=== PATIENT | male | born 1945 | race Caucasian/White ===

== ENCOUNTER 2024-10-02 08:15 | Emergency (ER) | payer MEDICARE, SELFPAY ==
[2024-10-02 08:17] VITALS: BP 185/74; PULSE 63; RESP 16; TEMP 36.8; O2SAT 96; BMI 24.5
--- NOTE | 2024-10-02 08:35 | EKG12_ITS ---
Test Reason : GENERAL Blood Pressure : */* mmHG Vent. Rate : 61 BPM Atrial Rate : 91 BPM P-R Int : 194 ms QRS Dur : 86 ms QT Int : 412 ms P-R-T Axes : 69 46 95 degrees QTcB Int : 414 ms Sinus rhythm Premature atrial complexes Nonspecific T wave abnormality Abnormal ECG Confirmed by Michel Carroll [id number]), editorial writer SCOTT EDWARDS ([id number]) on 10/04/2024 6:59:37 AM Referred By: Confirmed By: Michel Carroll
[2024-10-02] MEDS: 0.9% Normal Saline (1000mL) 1,000 ML 999 ML IV (08:48)
[2024-10-02] MEDS: Ondansetron 4 MG/2 ML Vial IV (08:48)
[2024-10-02] MEDS: Morphine 4 MG/ML Syringe IV (08:48)
[2024-10-02 08:59] LABS: Bacteria 0 SEEN /hpf (None Seen); Mucous, Urine 0 SEEN /hpf (<or=2+); White Blood Cells 0 SEEN /hpf (0-5)
--- NOTE | 2024-10-02 08:59 | EX.ED.DYSGE1 ---
HPI History of Present Illness Chief Complaint: Flank Pain Narrative Narrative: Patient is a 78-year-old male with past medical history of hypertension, hyperlipidemia, CAD status post CABG 4 years ago who presents to the emergency department chief complaint of acute right sided back pain. He states that around 430 this morning he woke up and had this pain he rates his pain a 8 out of 10. He states that nothing like this has happened before no history of kidney stones. Patient states that before going to bed last night he felt fine. He states he does feel nauseous but has not vomited. PFSH PFS Medical History Hypertension Hyperlipidemia 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 Home Medications ?Medication ?Instructions ?Recorded ?Last Taken ?Type ketorolac 10 mg tablet 10 mg PO Q8H PRN pain #10 tabs 10/02/24 Unknown Rx ondansetron 4 mg disintegrating 4 mg PO Q6H PRN nausea and 10/02/24 Unknown Rx tablet vomiting #20 tabs oxycodone-acetaminophen 5 mg-325 1 tab PO Q6H PRN pain 3 days #12 10/02/24 Unknown Rx mg tablet (Endocet) tabs tamsulosin 0.4 mg capsule (Flomax) 0.4 mg PO DAILY #14 caps 10/02/24 Unknown Rx Allergy/AdvReac Type Severity Reaction Status Date / Time No Known Allergies Allergy Verified 10/02/24 08:20 Social History Smoking Status: Never smoker ROS ROS ED ROS Narrative Constitutional: Denies fevers or chills, headaches Eyes: Denies changes double vision blurry vision Cardiovascular: Denies chest pain or palpitations Respiratory: Denies coughing wheezing shortness of breath Abdomen: Does state that he has some right side abdominal discomfort and nausea denies vomiting or diarrhea : Complains of increased frequency of urinating denies any painful urination or hematuria Neurological: Denies numbness, weakness, tingling Musculoskeletal: Complains of flank pain as noted above Skin: Denies rashes or lesions EXAM Physical Exam Narrative Exam Narrative: General: Patient was lying in bed rest comfortably did not appear to be acute distress Head: Atraumatic, normocephalic Eyes: PERRL bilateral, EOMI bilateral, no conjunctival injection noted Neck: Soft, supple, trachea midline Cardiovascular: Regular rate and rhythm no murmurs gallops rubs noted Respiratory: Clear to auscultation bilaterally no rales rhonchi or wheezes noted Abdomen: Soft, nondistended, mild tenderness to palpation in the right lower quadrant no rebound or guarding on exam Extremities: +5/5 strength noted in the bilateral upper and lower extremities, radial pulses +2/4 in the bilateral extremities, no pedal edema on exam Neurological: Patient following commands knew that he was at [facility] year is 2024 Skin: Warm, dry, intact no rashes or lesions noted Const Vital Signs: 10/02/24 08:17 10/02/24 10:16 Temperature 98.2 F Temperature Source Oral Pulse Rate 63 66 Respiratory Rate 16 18 Blood Pressure 185/74 H 157/68 H Blood Pressure Mean 111 97 Pulse Ox 96 96 Oxygen Delivery Method Room Air Room Air MDM MDM MDM Narrative Medical decision making narrative: Patient is a 78-year-old male who presented to the emergency department the chief complaint of right-sided flank pain that started suddenly 4:30 AM this morning. On the differential diagnose includes but not limited to AAA, ACS, UTI, pyelonephritis, urolithiasis. Once workup is obtained reviewed he will be reevaluated. Patient be given morphine Zofran and fluids. Patient CBC reviewed showed no evidence leukocytosis white blood count normal 7.6, hemoglobin 12.8, plate count noted to be normal at 234. Patient odium normal at 141, potassium normal at 4.2, creatinine was 1.30 we do not have a previous creatinine to compare to I suspect that he has underlying chronic kidney disease however cannot confirm this, AST and ALT were 17 and 16 respectively, lipase normal 25. Patient's urinalysis showed 25 occult blood negative nitrates negative leukocyte esterase no white cells and no bacteria noted. Patient CT abdomen pelvis with IV contrast was reviewed showed mild hydronephrosis with a proximal obstructive calculus and. Nephric fat stranding this measures 4 mm in nature. Patient has bilateral renal cyst measuring up to 2.2 cm, moderate right inguinal hernia containing fat and anterior bladder. Hepatic steatosis with cholelithiasis noted. Diffuse colonic diverticula with no evidence of diverticulitis with mild prostamegaly. I went back into the room and reexamined the patient the patient has no testicular pain no pain with exam on inguinal canal in the right Scrotal region. No tenderness to palpation over the epididymis, no concern for Brice's gangrene or testicular torsion. Patient does have a bulging when asked he states that this has been there since April after a heart catheterization at [facility]. He states that he is urinating normally for himself without any difficulty. I discussed case with on-call surgeon Dr. Vides and states that he can follow-up with him in the outpatient setting as this was an incidental finding. Patient is feeling better after the second dose of pain medication and Toradol with the Reglan. Patient will be discharged home in stable condition with follow-up given for Dr. Vides as well as urology Dr. Null. Patient be given prescriptions for Flomax, Toradol, Zofran, Percocet for severe pain. He was encouraged to return with worsening symptoms or any concerns. He is agreeable this plan all question concerns answered he is discharged home in stable condition. Lab Data Labs: Laboratory Results - last 24 hr 10/02/24 10/02/24 07:45 08:43 WBC 7.6 RBC 4.18 L Hgb 12.8 L Hct 39.4 L MCV 94.3 H MCH 30.6 MCHC 32.5 RDW Std Deviation 44.5 H RDW Coeff of Adeline 12.8 Plt Count 234 MPV 11.2 Immature Gran % (Auto) 0.400 Neut % (Auto) 74.2 H Lymph % (Auto) 15.8 L [place] % (Auto) 7.8 Eos % (Auto) 1.3 Baso % (Auto) 0.5 Absolute Neuts (auto) 5.6 Absolute Lymphs (auto) 1.20 Nucleated RBC % 0 Sodium 141 Potassium 4.2 Chloride Direct 104 Carbon Dioxide 26.5 Anion Gap 11 BUN 25 H Creatinine 1.30 H Estim Creat Clear Calc 45.32 Est GFR (MDRD) Non-Af 56 L BUN/Creatinine Ratio 19.0 Glucose 203 H Calcium 9.2 Total Bilirubin 0.65 AST 17 ALT 16 Alkaline Phosphatase 86 Total Protein 6.4 Albumin 4.2 Globulin 2.2 Albumin/Globulin Ratio 1.9 Lipase 25 Urine Color Yellow Urine Clarity Clear Urine pH 6.5 Ur Specific [place] 1.015 Urine Protein 30 H Urine Glucose (UA) 250 H Urine Ketones 15 H Urine Occult Blood 25 H Urine Nitrite Negative Urine Bilirubin Negative Urine Urobilinogen Normal Ur Leukocyte Esterase Negative Urine RBC 0-5 SEEN Urine WBC 0 SEEN Ur Squamous Epith Cells 0-5 SEEN Urine Bacteria 0 SEEN Urine Mucus 0 SEEN Radiography Diagnostic Testing: Clinical Impression(s) from Imaging Studies Abdomen/Pelvis CT 10/02/24 09:06 IMPRESSION: 1. Mild hydronephrosis with proximal obstructive calculus and perinephric fat stranding. 2. Moderate right inguinal hernia containing fat and anterior bladder 3. Hepatic steatosis 4. Cholelithiasis 5. Diffuse colonic diverticula with no evidence of diverticulitis 6. Mild prostatomegaly One or more dose reduction techniques were used (e.g., Automated exposure control, adjustment of the mA and/or kV according to patient size, use of iterative reconstruction technique). Reading Location: [facility] Discharge Plan Triage Chief Complaint: Flank Pain ED Provider: Lloyd Dimas Dx/Rx/DC Orders Clinical Impression: Urolithiasis, Right inguinal hernia Prescriptions: New ketorolac 10 mg tablet 10 mg PO Q8H PRN (Reason: pain) Qty: 10 0RF Rx Instructions: maximum total duration of 5 days from all oral, intranasal, or parenteral formulations ondansetron 4 mg tablet,disintegrating 4 mg PO Q6H PRN (Reason: nausea and vomiting) Qty: 20 0RF tamsulosin [Flomax] 0.4 mg capsule 0.4 mg PO DAILY Qty: 14 0RF oxycodone-acetaminophen [Endocet] 5-325 mg tablet 1 tab PO Q6H PRN (Reason: pain) 3 Days Qty: 12 0RF Primary Care Provider: Emily Campbell Referrals: Akira Riggs MD [Non-Staff] - Bossman Vides MD [Med Staff - Active Staff] - Judah Null MD [Med Staff - Active Staff] - Activity Restrictions/Additional Instructions: Take prescriptions as prescribed. Do not operate anything under the influence of the Endocet. Use the Endocet and Zofran for severe pain. You can use the Toradol for mild to moderate pain do not take any other NSAIDs on this medication including ibuprofen Advil Aleve etc. Follow-up with the surgeons that you were referred to. Return with worsening symptoms or other concerns. You have a kidney stone and there was an incidental finding that you have a hernia in the right side near your groin with your bladder partially and this. If you are having difficulty urinating you need to return to the emergency department as well. Print Language: Angolan Disposition Disposition: Home, Self Care
--- NOTE | 2024-10-02 09:06 | CT_ITS ---
PROCEDURE: ABDOMEN/PELVIS W IV CONT ONLY REASON FOR EXAM: Flank pain TECHNIQUE: Abdomen and pelvis CT with intravenous contrast. COMPARISON: None. FINDINGS: Lung bases: Clear Liver: Diffuse fatty infiltration. Gallbladder: Several calcified gallstones. Spleen: Unremarkable. Pancreas: Unremarkable. Adrenals: Unremarkable. Kidneys: Mild right hydronephrosis with 4 mm obstructive proximal ureteral calculus. Perinephric fat stranding. Bilateral renal cysts measuring up to 2.2 cm. Bladder: Unremarkable. Reproductive Organs: Prostate measures 4.0 cm in transverse dimension.. Bowel: Colonic diverticulosis without diverticulitis. Appendix: Normal. Lymph nodes: No suspicious lymph node enlargement. Vasculature: Mild diffuse atherosclerotic calcifications are noted. Peritoneum / Retroperitoneum: No ascites. No free air. Bones: Degenerative changes of the spine. Moderate right inguinal hernia containing fat and anterior bladder CT/Abdomen/Pelvis W IV Cont ONLY IMPRESSION: 1. Mild hydronephrosis with proximal obstructive calculus and perinephric fat stranding. 2. Moderate right inguinal hernia containing fat and anterior bladder 3. Hepatic steatosis 4. Cholelithiasis 5. Diffuse colonic diverticula with no evidence of diverticulitis 6. Mild prostatomegaly One or more dose reduction techniques were used (e.g., Automated exposure contr ol, adjustment of the mA and/or kV according to patient size, use of iterative reconstruction technique). Reading Location: [facility]
[2024-10-02 09:16] LABS: Absolute Neutrophil Count 5.6 X10^3/uL (2.0-7.7); Basophil# 0.04 X10^3/uL; Basophil% 0.5 % (0-1); Eosinophils% 1.3 % (0-5); Hematocrit 39.4 % (40-54); Hemoglobin 12.8 g/dL (13.0-16.5); Lymphocyte % 15.8 % (19-41); Mean Corp Hgb Conc 32.5 g/dL (32-36); Mean Corpuscular Hgb 30.6 pg (27.0-32.0); Mean Corpuscular Volume 94.3 fL (80-94); Mean Platelet Vol. 11.2 fl (6.2-12.0); Monocyte# 0.59 X10^3/uL; Monocyte% 7.8 % (0-10); NRBC Flagged by Analyzer 0 % (0-5); Neutrophil # 5.62 X10^3/uL (2.7-7.7); Neutrophil % 74.2 % (47-70); Platelet Count 234 K/mm3 (150-450); RBC Distribution Width CV 12.8 % (11.6-14.6); RBC Distribution Width SD 44.5 fl (35.1-43.9); Red Blood Count 4.18 M/mm3 (4.6-6.2); White Blood Count 7.6 K/mm3 (4.4-11.0)
[2024-10-02 09:20] LABS: ALB/GLOB Ratio 1.9 RATIO (0.9-2.4); AST(SGOT) 17 U/L (<=37); Alanine Aminotransfer ALT/SGPT 16 U/L (<=46); Albumin, Serum 4.2 g/dL (3.4-4.8); Alkaline Phosphatase 86 U/L (40-129); Anion Gap 11 (5-15); BUN 25 mg/dL (4-19); Calcium 9.2 mg/dL (7.6-11.0); Carbon Dioxide 26.5 mmol/L (22.0-29.0); Chloride 104 mmol/L (96-108); EST Glomerular Filtration Rate 56 (>60); Estimated Creatinine Clearance 45.32 ml/min; Globulin 2.2 g/dL (2.2-4.2); Glucose 203 mg/dL (70-99); Lipase 25 U/L (13-75); Potassium 4.2 mmol/L (3.3-5.1); Protein, Total 6.4 g/dL (5.9-8.4); Sodium Level 141 mmol/L (133-145); Total Bilirubin 0.65 mg/dL (0.00-1.30)
[2024-10-02 09:23] LABS: Color, Urine Yellow (Yellow); Glucose, Dipstick 250 mg/dl (Normal); Ketone-Dipstick 15 mg/dl (Negative); Leukocyte Esterase-Dipstick Negative /ul (Negative); Nitrite-Dipstick Negative (Negative); Occult Blood-Urine 25 /ul (Negative); Protein-Dipstick 30 mg/dl (Negative); Specific Gravity, Urine 1.015 (1.002-1.030); Urine Bilirubin Dipstick Negative (Negative); Urine Clarity Clear (Clear); Urine Urobilinogen Normal (Normal); Urine pH 6.5 (5.0 - 8.0)
[2024-10-02 09:31] LABS: Red Blood Cells-Urine 0-5 SEEN /hpf (0-5); Squamous Epithelial Cells - UA 0-5 SEEN /hpf (0-5)
[2024-10-02] MEDS: Metoclopramide 10 MG/2 ML Vial 5 MG IV (09:38)
[2024-10-02] MEDS: Ketorolac 15 MG/ML Vial IV (09:38)
[2024-10-02 10:16] VITALS: BP 157/68; PULSE 66; RESP 18; O2SAT 96
[2024-10-02 11:02] VITALS: BP 158/78; PULSE 74; RESP 18; TEMP 36.7; O2SAT 97
== END 2024-10-02 11:52 | disposition home or self-care (01) ==
PROVIDERS: Emergency Provider Emergency Medicine; PCP Nurse Practitioner Family; Visit Provider Emergency Medicine
DX: N13.2 Hydronephrosis with renal and ureteral calculous obstruction (principal); K40.90 Unilateral inguinal hernia, without obstruction or gangrene, not specified as recurrent; K57.30 Diverticulosis of large intestine without perforation or abscess without bleeding; I25.10 Atherosclerotic heart disease of native coronary artery without angina pectoris; K80.20 Calculus of gallbladder without cholecystitis without obstruction; I10 Essential (primary) hypertension; E78.5 Hyperlipidemia, unspecified; Z95.1 Presence of aortocoronary bypass graft; N28.1 Cyst of kidney, acquired
CPT/HCPCS: 96361; 96374; 96375; 99285; 74177; 80053; 81001; 83690; 85025; 93005; Q9967; J2405

== ENCOUNTER 2024-10-05 12:22 | Inpatient (IN) | payer MEDICARE, SELFPAY ==
[2024-10-05] VITALS (17 sets, daily range): BP systolic 147–186; BP diastolic 55–86; PULSE 61–89; RESP 15–20; TEMP 36.6–38.9; O2SAT 89–100; BMI 23.9
--- NOTE | 2024-10-05 13:11 | EKG12_ITS ---
Test Reason : ALT LOC Blood Pressure : */* mmHG Vent. Rate : 87 BPM Atrial Rate : 87 BPM P-R Int : 184 ms QRS Dur : 84 ms QT Int : 326 ms P-R-T Axes : 45 43 95 degrees QTcB Int : 392 ms Poor data quality, interpretation may be adversely affected Normal sinus rhythm Nonspecific ST and T wave abnormality Abnormal ECG Confirmed by Michel Carroll ([id number]), assistant film editor CYN YOUNG ([id number]) on 10/07/2024 6:51:15 AM Referred By: Confirmed By: Michel Carroll
--- NOTE | 2024-10-05 13:14 | CT_ITS ---
PROCEDURE: ABDOMEN/PELVIS WITHOUT CONT REASON FOR EXAM: Kidney stone TECHNIQUE: Abdomen and pelvis CT without intravenous contrast. COMPARISON: 10/02/2024 FINDINGS: Lung bases: Clear Liver: Diffuse fatty infiltration. Gallbladder: Several calcified gallstones. Spleen: Normal size. Pancreas: Unremarkable. Adrenals: Unremarkable. Kidneys: Moderate right hydronephrosis with proximal obstructive 4 mm calculus 2 mm nonobstructive calculus in the right kidney... Bladder: Decompressed about a Oden catheter Reproductive Organs: Prostate measures 4.2 cm in transverse dimension. Bowel: Colonic diverticulosis without diverticulitis. Appendix: Normal. Lymph nodes: No suspicious lymph node enlargement. Vasculature: Mild diffuse atherosclerotic calcifications are noted. Peritoneum / Retroperitoneum: No ascites. No free air. Bones: Degenerative changes of the spine. Hernia: Large right fat and bladder containing inguinal hernia CT/Abdomen/Pelvis without Cont IMPRESSION: 1. Moderate hydronephrosis and proximal obstructive calculus, no interval walsh ge from prior study 2. Large right fat and bladder containing inguinal hernia 3. Hepatic steatosis 4. Prostatomegaly 5. Diverticulosis of the colon with no evidence of diverticulitis One or more dose reduction techniques were used (e.g., Automated exposure contr ol, adjustment of the mA and/or kV according to patient size, use of iterative reconstruction technique). Reading Location: [facility]
--- NOTE | 2024-10-05 13:14 | CT_ITS ---
PROCEDURE: CTA HEAD AND NECK W/ CONTRAST REASON FOR EXAM: AMS TECHNIQUE: CTA imaging of the head and neck from the aortic arch to the skull vertex with intravenous contrast. 3D reconstructions. COMPARISON: None. # of known CTs in the past 12 months: 0 # of known Cardiac Nuclear Medicine Studies in the past 12 months: 0 FINDINGS: Aortic Arch: Normal size and branching pattern. No significant atherosclerotic plaque. Brachiocephalic and Subclavians: Unremarkable RIGHT Carotid: Right CCA: Mild calcified and soft plaque. Right ICA: Mild calcified and soft plaque. Maximum stenosis (NASCET): 0-49 % Right ECA: Unremarkable. LEFT Carotid: Left CCA: Mild calcified and soft plaque. Left ICA: Unremarkable. Maximum stenosis (NASCET): 0-49 % Left ECA: Unremarkable. Vertebrals: Codominant. Arise from the subclavians. Both vertebrals form the basilar. RIGHT Vertebral: Unremarkable. LEFT Vertebral: Unremarkable. No intracranial aneurysms or large vascular malformations are identified. Anterior cerebral arteries: Unremarkable. Middle cerebral arteries: Unremarkable. Basilar artery: Unremarkable. Posterior cerebral arteries: Unremarkable. Other major branches of the posterior circulation: Unremarkable. Major venous structures: Unremarkable. Other findings: No lymphadenopathy. Lung apices are clear. Bones are unremarkable. CT/CTA Head AND Neck W/ Contrast IMPRESSION: Mild atherosclerotic changes with no hemodynamically significant stenosis in th e arteries and head and neck. One or more dose reduction techniques were used (e.g., Automated exposure contr ol, adjustment of the mA and/or kV according to patient size, use of iterative reconstruction technique). Reading Location: [facility]
[2024-10-05] MEDS: Ondansetron 4 MG/2 ML Vial IV (13:20)
[2024-10-05] MEDS: 0.9% Normal Saline (1000mL) 1,000 ML 999 ML IV ×2 (13:21→15:30)
[2024-10-05 13:37] LABS: Absolute Lymphocyte Count 0.49 X10^3/uL (0.83-4.51); Absolute Neutrophil Count 6.4 X10^3/uL (2.0-7.7); Basophil# 0.03 X10^3/uL; Basophil% 0.4 % (0-1); Eosinophil# 0.01 X10^3/uL; Eosinophils% 0.1 % (0-5); Hematocrit 35.8 % (40-54); Hemoglobin 11.7 g/dL (13.0-16.5); Lymphocyte # 0.49 X10^3/ul (0.83-4.51); Lymphocyte % 6.5 % (19-41); Mean Corp Hgb Conc 32.7 g/dL (32-36); Mean Corpuscular Hgb 30.7 pg (27.0-32.0); Mean Platelet Vol. 10.9 fl (6.2-12.0); Monocyte# 0.52 X10^3/uL; Monocyte% 6.9 % (0-10); NRBC Flagged by Analyzer 0 % (0-5); Neutrophil # 6.42 X10^3/uL (2.7-7.7); Neutrophil % 85.8 % (47-70); POSITIVE DIFFERENTIAL YES; Platelet Count 170 K/mm3 (150-450); RBC Distribution Width CV 12.8 % (11.6-14.6); RBC Distribution Width SD 44.2 fl (35.1-43.9); Red Blood Count 3.81 M/mm3 (4.6-6.2); White Blood Count 7.5 K/mm3 (4.4-11.0)
[2024-10-05 13:40] LABS: Mucous, Urine 0 SEEN /hpf (<or=2+)
[2024-10-05 13:42] LABS: Lactic Acid 2.1 mmol/L (0.0-2.0)
[2024-10-05 13:45] LABS: Color, Urine Straw (Yellow); Glucose, Dipstick 1000 mg/dl (Normal); Ketone-Dipstick 15 mg/dl (Negative); Leukocyte Esterase-Dipstick 25 /ul (Negative); Nitrite-Dipstick Negative (Negative); Occult Blood-Urine 150 /ul (Negative); Protein-Dipstick 100 mg/dl (Negative); Specific Gravity, Urine 1.015 (1.002-1.030); Urine Bilirubin Dipstick Negative (Negative); Urine Clarity Clear (Clear); Urine Urobilinogen Normal (Normal)
[2024-10-05 14:07] LABS: Bacteria RARE /hpf (None Seen); Red Blood Cells-Urine 5-10 SEEN /hpf (0-5); Squamous Epithelial Cells - UA 0-5 SEEN /hpf (0-5); White Blood Cells 0-5 SEEN /hpf (0-5)
[2024-10-05 14:08] LABS: International Normalized Ratio 1.1; Prothrombin Time (Protime)PT. 14.4 SECONDS (11.7-14.9); Troponin T High Sensitivity 41 ng/L (<=22)
--- NOTE | 2024-10-05 14:11 | EX.ED.DYSGE1 ---
HPI History of Present Illness Chief Complaint: LOC Informant: EMS Narrative Narrative: This is an 78-year-old male presenting to the emergency room with altered mental status. Patient was reportedly seen in the emergency department was diagnosed with a proximal ureteral stone. Apparently friends were over at his and he seemed fine. He did. He was confused and unable to stand so they carried him to the fire department. Patient noted to be vomiting by nursing when he got here. Patient himself cannot provide any history. He reportedly lives at home alone. Nursing does not see any outward signs of trauma. PFSH PFS Medical History Hypertension Hyperlipidemia 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 Home Medications ?Medication ?Instructions ?Recorded ?Last Taken ?Type ketorolac 10 mg tablet 10 mg PO Q8H PRN pain #10 tabs 10/02/24 Unknown Rx ondansetron 4 mg disintegrating 4 mg PO Q6H PRN nausea and 10/02/24 Unknown Rx tablet vomiting #20 tabs oxycodone-acetaminophen 5 mg-325 1 tab PO Q6H PRN pain 3 days #12 10/02/24 Unknown Rx mg tablet (Endocet) tabs tamsulosin 0.4 mg capsule (Flomax) 0.4 mg PO DAILY #14 caps 10/02/24 Unknown Rx Allergy/AdvReac Type Severity Reaction Status Date / Time No Known Allergies Allergy Verified 10/02/24 08:20 Social History Smoking Status: Never smoker ROS ROS ED Review of Systems ROS Unobtainable: due to mental status EXAM Physical Exam Const Vital Signs: 10/05/24 12:30 10/05/24 13:10 10/05/24 13:34 Temperature 97.9 F 98.5 F 97.8 F Temperature Source Oral Oral Temporal Pulse Rate 85 76 85 Respiratory Rate 18 16 15 Blood Pressure 152/80 H 171/86 H 171/76 H Blood Pressure Mean 104 114 107 Pulse Ox 96 96 93 Oxygen Delivery Method Room Air Room Air Room Air 10/05/24 14:00 10/05/24 14:36 10/05/24 15:00 Temperature 97.9 F 100.3 F H 101.5 F H Temperature Source Temporal Axillary Axillary Pulse Rate 81 89 87 Respiratory Rate 16 17 18 Blood Pressure 179/69 H 182/83 H 186/77 H Blood Pressure Mean 105 116 113 Pulse Ox 92 92 96 Oxygen Delivery Method Room Air Room Air Room Air Positive well nourished and well developed General Appearance ED: well developed and NAD HEENT Reports normocephalic, head/scalp atraumatic and moist mucous membranes HEENT Narrative: Patient appears to be handling secretions normally. Eyes PERRL and EOMs intact bilaterally Neck no lymphadenopathy, supple and no JVD Resp normal respiratory effort and clear to auscultation bilaterally Cardio regular rate, regular rhythm and no murmurs GI normal to inspection, nondistended, normoactive bowel sounds and non-tender Palpation: soft Back/Spine no CVA tenderness and normal ROM Extremity normal to inspection General Extremety ED: Negative for edema General Extremity: Negative for edema Neuro Neuro Narrative: Patient is alert but confused. He opens his eyes with movement and voice. He appears to be moving all extremities. Nonverbal. Psych Psych Narrative: Unable to assess Skin no rashes or lesions noted and no wounds MDM MDM MDM Narrative Medical decision making narrative: Differential diagnosis includes stroke (hemorrhagic ischemic) sepsis UTI pneumonia viral syndrome uremia liver failure renal failure dehydration medication electrolyte abnormalities anemia Patient's white count 7.5 hemoglobin 11.7 platelet count of 170. Lactic acid slightly elevated 2.1. Normal LFTs. Troponin is 41. Creatinine 2.30 which is elevated off of baseline anion gap 16 CO2 22.1 normal coags. Urinalysis was a cath specimen demonstrated rare bacteria 0-5 white cells 2-5 squamous cells 5-10 red blood cells. Negative nitrates. This was sent for culture blood cultures were obtained. Urine toxicology is positive for oxycodone which the patient was prescribed. Delay in getting the patient to CTA of his head and neck was due to awaiting creatinine/GFR. CT of the head and neck as well as CT of the abdomen pelvis was obtained read by radiology. No obvious intracranial hemorrhage or stroke or LVO was noted on the head CT/CTA. CT of the abdomen pelvis does not show significant change from prior. Noted continued proximal kidney stone on the right. Abdomen is benign. Patient received rectal Tylenol as well as IV fluids and Rocephin. We are currently awaiting COVID influenza RSV testing. Plan of care will be admission History & Record Review Discussion w/independent historian: Patient Lab Data Attestation: I reviewed the patient's lab results. Labs: Laboratory Results - last 24 hr 10/05/24 10/05/24 10/05/24 12:55 13:21 13:28 WBC 7.5 RBC 3.81 L Hgb 11.7 L Hct 35.8 L MCV 94.0 MCH 30.7 MCHC 32.7 RDW Std Deviation 44.2 H RDW Coeff of Adeline 12.8 Plt Count 170 MPV 10.9 Immature Gran % (Auto) 0.300 Neut % (Auto) 85.8 H Lymph % (Auto) 6.5 L [place] % (Auto) 6.9 Eos % (Auto) 0.1 Baso % (Auto) 0.4 Absolute Neuts (auto) 6.4 Absolute Lymphs (auto) 0.49 L Nucleated RBC % 0 PT 14.4 INR 1.1 APTT 26.0 Sodium 140 Potassium 4.5 Chloride 102 Carbon Dioxide 22.1 Anion Gap 16 H BUN 35 H Creatinine 2.30 H Est GFR (MDRD) Non-Af 28 L BUN/Creatinine Ratio 15.3 Glucose 233 H Lactic Acid 2.1 H Calcium 9.4 Total Bilirubin 0.80 AST 18 ALT 19 Alkaline Phosphatase 108 Troponin T High Sens 41 H Total Protein 6.9 Albumin 4.2 Globulin 2.7 Albumin/Globulin Ratio 1.6 Urine Color Straw Urine Clarity Clear Urine pH 6.0 Ur Specific [place] 1.015 Urine Protein 100 H Urine Glucose (UA) 1000 H Urine Ketones 15 H Urine Occult Blood 150 H Urine Nitrite Negative Urine Bilirubin Negative Urine Urobilinogen Normal Ur Leukocyte Esterase 25 H Urine RBC 5-10 SEEN Urine WBC 0-5 SEEN Ur Squamous Epith Cells 0-5 SEEN Urine Bacteria RARE Urine Mucus 0 SEEN Urine Opiates Screen NEGATIVE U Buprenorphine Qual NEGATIVE Ur Oxycodone Screen PRESUMTIVE POSITIVE Urine Methadone Screen NEGATIVE Urine Fentanyl Screen NEGATIVE Ur Barbiturates Screen NEGATIVE Ur Phencyclidine Scrn NEGATIVE Ur Amphetamines Screen NEGATIVE U Benzodiazepines Scrn NEGATIVE Urine Cocaine Screen NEGATIVE U Cannabinoids Screen NEGATIVE Radiography Diagnostic Testing: Clinical Impression(s) from Imaging Studies Abdomen/Pelvis CT 10/05/24 13:14 IMPRESSION: 1. Moderate hydronephrosis and proximal obstructive calculus, no interval change from prior study 2. Large right fat and bladder containing inguinal hernia 3. Hepatic steatosis 4. Prostatomegaly 5. Diverticulosis of the colon with no evidence of diverticulitis One or more dose reduction techniques were used (e.g., Automated exposure control, adjustment of the mA and/or kV according to patient size, use of iterative reconstruction technique). [facility] Head/Neck [facility]A 10/05/24 13:14 IMPRESSION: Mild atherosclerotic changes with no hemodynamically significant stenosis in the arteries and head and neck. One or more dose reduction techniques were used (e.g., Automated exposure control, adjustment of the mA and/or kV according to patient size, use of iterative reconstruction technique). Reading [facility] Chest X-Ray 10/05/24 14:40 IMPRESSION: No acute abnormality is seen. Reading Location: [facility] EKG Initial EKG: Attestation: I personally reviewed and interpreted this EKG as follows: Comments: Normal sinus rhythm ventricular rate of 87 bpm. Management Discussion w/another healthcare provider: Hospitalist (Dr Bhatt) Discharge Plan Dx/Rx/DC Orders Clinical Impression: Urolithiasis, Acute alteration in mental status, Acute kidney injury, Acute febrile illness Disposition Disposition: Acute Care [facility]
[2024-10-05 14:31] LABS: Amphetamine Urine NEGATIVE (<1000 ng/mL); Barbiturate Urine NEGATIVE (< 200 ng/mL); Benzodiazepine Urine NEGATIVE (< 200 ng/mL); Buprenorphine Urine NEGATIVE (< 200 ng/mL); Cocaine Urine NEGATIVE (< 300 ng/mL); Fentanyl, Urine NEGATIVE; Methadone Urine NEGATIVE (< 300 ng/mL); Opiates Urine NEGATIVE (< 300 ng/mL); Oxycodone, Urine PRESUMTIVE POSITIVE (< 100 ng/mL); PCP Urine NEGATIVE (< 25 ng/mL); THC Urine NEGATIVE (< 50 ng/mL)
--- NOTE | 2024-10-05 14:40 | RAD_ITS ---
PROCEDURE: CHEST 1 VIEW (PORTABLE) REASON FOR EXAM: Altered mental status. TECHNIQUE: Frontal view of the chest. COMPARISON: None FINDINGS: EKG electrodes are seen. The heart size is normal. Prior midline sternotomy. The lungs are clear. Degenerative changes of the thoracic spine. RAD/Chest 1 View (Portable) IMPRESSION: No acute abnormality is seen. Reading Location: [id number]
[2024-10-05 14:55] LABS: ALB/GLOB Ratio 1.6 RATIO (0.9-2.4); AST(SGOT) 18 U/L (<=37); Alanine Aminotransfer ALT/SGPT 19 U/L (<=46); Albumin, Serum 4.2 g/dL (3.4-4.8); Alkaline Phosphatase 108 U/L (40-129); Anion Gap 16 (5-15); BUN 35 mg/dL (4-19); BUN/Creat Ratio 15.3 RATIO (10-20); Calcium,Total 9.4 mg/dL (7.6-11.0); Carbon Dioxide 22.1 mmol/L (21.0-32.0); Chloride 102 mmol/L (98-108); EST Glomerular Filtration Rate 28 (>60); Globulin 2.7 g/dL (2.2-4.2); Glucose 233 mg/dL (70-99); Potassium 4.5 mmol/L (3.3-5.1); Protein, Total 6.9 g/dL (5.9-8.4); Sodium Level 140 mmol/L (133-145)
[2024-10-05] MEDS: Acetaminophen 650 MG Suppository RC (15:18)
[2024-10-05] MEDS: Ceftriaxone 1 GM/50 ML BAG IV (15:33)
--- NOTE | 2024-10-05 16:22 | PCM.HP.STD ---
HPI - General General Date of Admission: 10/05/24 Date of Service: 10/05/24 Chief Complaint: Altered mentation HPI Narrative JACKIE STEVENS, is a 78 M who presented to [facility] ED on 10/05/24 with altered mentation. Patient was initially seen in the ED on 10/02 for acute right-sided back pain. CT abdomen pelvis showed proximal 4 mm obstructive calculus and mild right-sided hydronephrosis. Patient had improvement in pain with IV Toradol in the ED and given the small size of the stone, he was discharged home with plan for close outpatient follow-up with urology. Patient was with his friends this morning when they apparently noticed that he was altered so they took him over to the fire department for further evaluation. He was then brought here to the ED. On arrival here patient was noted to be vomiting. He did open his eyes to command but was not able to answer any questions for ED staff. Friends noted that patient lives at home alone. CTA head/neck was unremarkable. Repeat CT abdomen pelvis showed persistent proximal obstructive calculus with moderate hydronephrosis noted. Patient then developed a fever in the ED. UA was mildly infectious appearing. Lactic acid 2.1. Creatinine worsened to 2.30 compared to 1.30 on 10/02. Given these findings, patient was given IV fluids and started on IV antibiotics and hospitalist was contacted for admission. I saw the patient at bedside in the ED. Patient was laying back in bed and comfortable appearing. He did open his eyes on command but does not follow any commands or answer any questions for me. Did not have any pain or tenderness to ovation of his abdomen or right flank region on exam. Will be admitted for further management. 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 Home Medications ?Medication ?Instructions ?Recorded ?Last Taken ?Type ketorolac 10 mg tablet 10 mg PO Q8H PRN pain #10 tabs 10/02/24 Unknown Rx ondansetron 4 mg disintegrating 4 mg PO Q6H PRN nausea and 10/02/24 Unknown Rx tablet vomiting #20 tabs oxycodone-acetaminophen 5 mg-325 1 tab PO Q6H PRN pain 3 days #12 10/02/24 Unknown Rx mg tablet (Endocet) tabs tamsulosin 0.4 mg capsule (Flomax) 0.4 mg PO DAILY #14 caps 10/02/24 Unknown Rx Allergy/AdvReac Type Severity Reaction Status Date / Time No Known Allergies Allergy Verified 10/02/24 08:20 Social History Smoking Status: Never smoker ROS Review of Systems ROS Unobtainable: due to mental status Vital Signs Vital Signs Vital Signs: 10/05/24 12:30 10/05/24 13:10 10/05/24 13:34 Temperature 97.9 F 98.5 F 97.8 F Temperature Source Oral Oral Temporal Pulse Rate 85 76 85 Respiratory Rate 18 16 15 Blood Pressure 152/80 H 171/86 H 171/76 H Blood Pressure Mean 104 114 107 Pulse Ox 96 96 93 Oxygen Delivery Method Room Air Room Air Room Air 10/05/24 14:00 10/05/24 14:36 10/05/24 15:00 Temperature 97.9 F 100.3 F H 101.5 F H Temperature Source Temporal Axillary Axillary Pulse Rate 81 89 87 Respiratory Rate 16 17 18 Blood Pressure 179/69 H 182/83 H 186/77 H Blood Pressure Mean 105 116 113 Pulse Ox 92 92 96 Oxygen Delivery Method Room Air Room Air Room Air 10/05/24 16:00 Temperature Temperature Source Pulse Rate 81 Respiratory Rate 16 Blood Pressure 156/75 H Blood Pressure Mean 102 Pulse Ox 91 Oxygen Delivery Method Physical Exam Const alert, no apparent distress and average body habitus Constitutional Narrative: Elderly male, laying back comfortably in bed, fatigued appearing, opening eyes but not following commands or answering any questions for me, otherwise in no acute distress. General Appearance: comfortable HEENT normocephalic, head/scalp atraumatic, hearing grossly normal bilaterally and nasal mucous membranes and turbinates normal HEENT Narrative: Dry mucous membranes. Eyes PERRL, EOMs intact bilaterally and conjunctivae normal Neck full ROM Chest inspection of chest normal Resp normal respiratory effort, normal air movement, no use of accessory muscles and clear to auscultation bilaterally Cardio regular rate, regular rhythm, no murmurs and peripheral pulses 2+ throughout GI normal to inspection, nondistended, normoactive bowel sounds, soft to palpation, non-tender and non-distended Back/Spine normal ROM Extremity normal to inspection and no pedal edema Skin no rashes or lesions noted Neuro moves all extremities and no focal motor deficits Results Lab / Micro Data 10/05/24 13:21 10/05/24 13:21 Labs: Laboratory Results - last 24 hr 10/05/24 12:55: Lactic Acid 2.1 H 10/05/24 13:21: WBC 7.5, RBC 3.81 L, Hgb 11.7 L, Hct 35.8 L, MCV 94.0, MCH 30.7, MCHC 32.7, RDW Std Deviation 44.2 H, RDW Coeff of Adeline 12.8, Plt Count 170, MPV 10.9, Immature Gran % (Auto) 0.300, Neut % (Auto) 85.8 H, Lymph % (Auto) 6.5 L, [place] % (Auto) 6.9, Eos % (Auto) 0.1, Baso % (Auto) 0.4, Absolute Neuts (auto) 6.4, Absolute Lymphs (auto) 0.49 L, Nucleated RBC % 0, PT 14.4, INR 1.1, APTT 26.0, Sodium 140, Potassium 4.5, Chloride 102, Carbon Dioxide 22.1, Anion Gap 16 H, BUN 35 H, Creatinine 2.30 H, Est GFR (MDRD) Non-Af 28 L, BUN/Creatinine Ratio 15.3, Glucose 233 H, Calcium 9.4, Total Bilirubin 0.80, AST 18, ALT 19, Alkaline Phosphatase 108, Troponin T High Sens 41 H, Total Protein 6.9, Albumin 4.2, Globulin 2.7, Albumin/Globulin Ratio 1.6 10/05/24 13:28: Urine Color Straw, Urine Clarity Clear, Urine pH 6.0, Ur Specific [place] 1.015, Urine Protein 100 H, Urine Glucose (UA) 1000 H, Urine Ketones 15 H, Urine Occult Blood 150 H, Urine Nitrite Negative, Urine Bilirubin Negative, Urine Urobilinogen Normal, Ur Leukocyte Esterase 25 H, Urine RBC 5-10 SEEN, Urine WBC 0-5 SEEN, Ur Squamous Epith Cells 0-5 SEEN, Urine Bacteria RARE, Urine Mucus 0 SEEN, Urine Opiates Screen NEGATIVE, U Buprenorphine Qual NEGATIVE, Ur Oxycodone Screen PRESUMTIVE POSITIVE, Urine Methadone Screen NEGATIVE, Urine Fentanyl Screen NEGATIVE, Ur Barbiturates Screen NEGATIVE, Ur Phencyclidine Scrn NEGATIVE, Ur Amphetamines Screen NEGATIVE, U Benzodiazepines Scrn NEGATIVE, Urine Cocaine Screen NEGATIVE, U Cannabinoids Screen NEGATIVE Micro: Microbiology 10/05/24 13:28 Mucosa - Nose SARS-CoV-2, Influenza & RSV (PCR) - Final Imaging Radiology Impression Abdomen/Pelvis CT 10/05/24 13:14 IMPRESSION: 1. Moderate hydronephrosis and proximal obstructive calculus, no interval change from prior study 2. Large right fat and bladder containing inguinal hernia 3. Hepatic steatosis 4. Prostatomegaly 5. Diverticulosis of the colon with no evidence of diverticulitis One or more dose reduction techniques were used (e.g., Automated exposure control, adjustment of the mA and/or kV according to patient size, use of iterative reconstruction technique). Reading [facility] Head/Neck CTA 10/05/24 13:14 IMPRESSION: Mild atherosclerotic changes with no hemodynamically significant stenosis in the arteries and head and neck. One or more dose reduction techniques were used (e.g., Automated exposure control, adjustment of the mA and/or kV according to patient size, use of iterative reconstruction technique). Reading Location: [facility] Chest X-Ray 10/05/24 14:40 IMPRESSION: No acute abnormality is seen. Reading Location: [id number] Assessment & Plan Assessment/Plan (1) Acute alteration in mental status: (2) Acute kidney injury: (3) Nephrolithiasis: (4) Hydronephrosis: PLAN: Plan Patient is an 78-year-old male who presented [facility] ED on 10/05/2024 with altered mentation. 1. Acute metabolic encephalopathy ? Admit under inpatient status to PCU. Patient comfortable, protecting airway and opening eyes spontaneously on exam. However, not responding to commands or answering questions. CTA head/neck normal. Suspect secondary to UTI as noted below. Notably was prescribed oxycodone?acetaminophen at recent ED visit and tox screen was positive for oxycodone, but encephalopathy appears more consistent with metabolic encephalopathy due to UTI. Treatment as below. Avoid sedating medications as able. 2. Right-sided nephrolithiasis with moderate hydronephrosis and concern for acute pyelonephritis ? Urology consulted. CT abdomen pelvis on admit showed proximal obstructive 4 mm calculus with moderate right hydronephrosis. Notably had CT abdomen pelvis on 10/02 with stone in same place but now with worsened hydronephrosis. UA mildly infectious appearing. Urine culture pending. Will treat with IV ceftriaxone for now. N.p.o. midnight for possible procedure with urology, appreciate further urology recommendations. Continue Flomax that was recently prescribed at last ED visit. 3. BRITTANEY ? Creatinine 2.30 on admit, last creatinine was 1.30 on 10/02. Baseline unclear. Suspect prerenal BRITTANEY secondary to poor p.o. intake in setting of likely UTI as noted above. Given 2 L of IV fluids in the ED, follow-up a.m. BMP and monitor urine output. 4. Right inguinal hernia ? Noted on CT abdomen pelvis on 10/02. Case was discussed with general surgery then who noted that this was not incidental finding and patient is fine for outpatient follow-up as needed after discharge. DVT prophylaxis: SCDs CODE STATUS: Full code, unverified Expected disposition: TBD Total clinical time spent by myself addressing the patient's medical issues, reviewing all the data, and collaborating with patient's care team: 55 minutes. Charges/Coding Visit Charges Inpatient E&M: 95564 Init Hosp L2
[2024-10-05] MEDS: 0.9% Normal Saline (1000mL) 1,000 ML 150 ML IV (17:19)
--- NOTE | 2024-10-05 17:53 | ED.RN ---
THIS NURSE SPOKE TO PTS FRIEND, @12:50, WHO [facility]. FRIEND WAS KATERINA ZACARIAS AND WE HAVE CONTACT INFORMATION FOR HIM; ABLE TO CONTACT FROM PTS PHONE. FRIEND, KATERINA ZACARIAS, ADVISED THIS NURSE THAT HE AND ANOTHER NEIGHBOR HAD DINNER WITH PT LAST NIGHT AROUND 18:30 AND PT WAS NORMAL. FRIEND TRIED TO CALL PT AT 10:30 THIS MORNING WITH NO ANSWER SO HE WENT OVER TO CHECK ON PT. PT WAS UNRESPONSIVE ON THE FLOOR. FRIEND HAS HX WITH LFD AND THOUGHT IT MIGHT BE HIS BG, SO HE WAS ABLE TO AROUSE PT AWAKE AND ATTEMPTED TO GIVE HIM A SIP OF PEPSI. BG WAS 220 FOR FRIEND. HE AND ANOTHER NEIGHBOR CARRIED PT TO THEIR VEHICLE WHERE THEY DROVE ON SCENE TO THE [facility] DEPT TO SEEK CARE. PT IS AMS WITH ONLY ORIENTATION TO HIS NAME/VOICE. THIS NURSE HAS ATTEMPTED 3 TIMES TO CONTACT NEXT OF KIN ON PTS CHART WHO IS LASHA CROCKER FRIEND AT [phone]. AFTER THE 3RD CALL THIS NURSE LEFT A VAGUE VOICEMAIL ASKING HER TO CONTACT ME WITH MY NAME AND INFORMATION HERE AT [facility] ED.
[2024-10-05 21:06] LABS: TROPONIN VARIANCE 2 HR 8; Troponin T High Sens 2 HR 49 ng/L (<=22)
[2024-10-05] MEDS: Tamsulosin HCl 0.4 MG Capsule PO (23:50)
[2024-10-06] VITALS (11 sets, daily range): BP systolic 137–171; BP diastolic 52–82; PULSE 57–76; RESP 16–24; TEMP 35.5–37.7; O2SAT 92–100
[2024-10-06] MEDS: MELATONIN 3 MG TABLET PO (00:55)
[2024-10-06] MEDS: Acetaminophen 325 MG Tablet 650 MG PO (00:55)
--- NOTE | 2024-10-06 02:04 | PCM.HOSP.N ---
Hospitalist Note Patient with frequent agitation, constantly trying to climb the bed, pull out access and his catheter. Currently has 1:1 sitter. Will trial low dose seroquel.
[2024-10-06] MEDS: QUEtiapine 25 MG Tablet PO (02:40)
[2024-10-06 05:53] LABS: Hemoglobin 10.1 g/dL (13.0-16.5); Mean Corp Hgb Conc 32.6 g/dL (32-36); Mean Corpuscular Hgb 30.8 pg (27.0-32.0); Mean Corpuscular Volume 94.5 fL (80-94); Mean Platelet Vol. 11.2 fl (6.2-12.0); Platelet Count 136 K/mm3 (150-450); RBC Distribution Width CV 12.9 % (11.6-14.6); RBC Distribution Width SD 44.5 fl (35.1-43.9); Red Blood Count 3.28 M/mm3 (4.6-6.2); White Blood Count 7.6 K/mm3 (4.4-11.0)
[2024-10-06 06:23] LABS: Anion Gap 15 (5-15); BUN 30 mg/dL (4-19); BUN/Creat Ratio 14.4 RATIO (10-20); Calcium,Total 8.1 mg/dL (7.6-11.0); Carbon Dioxide 19.1 mmol/L (21.0-32.0); Chloride 108 mmol/L (98-108); Creatinine, Serum 2.09 mg/dL (0.70-1.20); EST Glomerular Filtration Rate 31 (>60); Estimated Creatinine Clearance 28.19 ml/min (50-250); Glucose 80 mg/dL (70-99); Potassium 4.2 mmol/L (3.3-5.1); Sodium Level 141 mmol/L (133-145)
--- NOTE | 2024-10-06 08:35 | PN.HOSP_ITS ---
Reason for Visit Reason for Visit: Diagnoses Unspecified hydronephrosis (10/05/24) Acute kidney failure, unspecified (10/05/24) Calculus of kidney (10/05/24) Altered mental status, unspecified (10/05/24) Subjective Subjective Patient is an 78-year-old gentleman who presented with altered mental status and fever diagnosed with acute urinary tract infection admitted for subsequent management Objective Data Objective Data Vital Signs: Vital Signs Temp Pulse Resp BP Pulse Ox O2 Del Method O2 Flow Rate 99.2 F H 60 18 166/53 H 94 Room Air 2 10/06/24 02:50 10/06/24 04:40 10/06/24 02:50 10/06/24 02:50 10/06/24 02:50 10/06/24 02:50 10/06/24 02:50 Oxygen Flow Rate (L/min) 2 Oxygen Delivery Method Room Air Weight: 73.482 kg Body Mass Index (BMI) 23.9 Intake & Output: Intake and Output for Last 24 Hours 10/04/24 10/05/24 10/06/24 23:59 23:59 23:59 Intake Total 2050 / 3050 1000 / 1000 Output Total 400 / 400 250 / 250 Balance 1650 / 2650 750 / 750 Lab / Micro Data 10/06/24 04:55 10/06/24 04:55 Labs: Laboratory Results - last 24 hr 10/05/24 12:55: Lactic Acid 2.1 H 10/05/24 13:21: WBC 7.5, RBC 3.81 L, Hgb 11.7 L, Hct 35.8 L, MCV 94.0, MCH 30.7, MCHC 32.7, RDW Std Deviation 44.2 H, RDW Coeff of Adeline 12.8, Plt Count 170, MPV 10.9, Immature Gran % (Auto) 0.300, Neut % (Auto) 85.8 H, Lymph % (Auto) 6.5 L, [place] % (Auto) 6.9, Eos % (Auto) 0.1, Baso % (Auto) 0.4, Absolute Neuts (auto) 6.4, Absolute Lymphs (auto) 0.49 L, Nucleated RBC % 0, PT 14.4, INR 1.1, APTT 26.0, Sodium 140, Potassium 4.5, Chloride 102, Carbon Dioxide 22.1, Anion Gap 16 H, BUN 35 H, Creatinine 2.30 H, Est GFR (MDRD) Non-Af 28 L, BUN/Creatinine Ratio 15.3, Glucose 233 H, Calcium 9.4, Total Bilirubin 0.80, AST 18, ALT 19, Alkaline Phosphatase 108, Troponin T High Sens 41 H, Total Protein 6.9, Albumin 4.2, Globulin 2.7, Albumin/Globulin Ratio 1.6 10/05/24 13:28: Urine Color Straw, Urine Clarity Clear, Urine pH 6.0, Ur Specific [place] 1.015, Urine Protein 100 H, Urine Glucose (UA) 1000 H, Urine Ketones 15 H, Urine Occult Blood 150 H, Urine Nitrite Negative, Urine Bilirubin Negative, Urine Urobilinogen Normal, Ur Leukocyte Esterase 25 H, Urine RBC 5-10 SEEN, Urine WBC 0-5 SEEN, Ur Squamous Epith Cells 0-5 SEEN, Urine Bacteria RARE, Urine Mucus 0 SEEN, Urine Opiates Screen NEGATIVE, U Buprenorphine Qual NEGATIVE, Ur Oxycodone Screen PRESUMTIVE POSITIVE, Urine Methadone Screen NEGATIVE, Urine Fentanyl Screen NEGATIVE, Ur Barbiturates Screen NEGATIVE, Ur Phencyclidine Scrn NEGATIVE, Ur Amphetamines Screen NEGATIVE, U Benzodiazepines Scrn NEGATIVE, Urine Cocaine Screen NEGATIVE, U Cannabinoids Screen NEGATIVE 10/05/24 20:13: Troponin T Hi Sens 2 Hr 49 H, Troponin T Hi Sens 2Hr Delta 8 10/06/24 04:55: WBC 7.6, RBC 3.28 L, Hgb 10.1 L, Hct 31.0 L, MCV 94.5 H, MCH 30.8, MCHC 32.6, RDW Std Deviation 44.5 H, RDW Coeff of Adeline 12.9, Plt Count 136 L, MPV 11.2, Sodium 141, Potassium 4.2, Chloride 108, Carbon Dioxide 19.1 L, Anion Gap 15, BUN 30 H, Creatinine 2.09 H, Estim Creat Clear Calc 28.19 L, Est GFR (MDRD) Non-Af 31 L, BUN/Creatinine Ratio 14.4, Glucose 80, Calcium 8.1 Micro: Microbiology 10/05/24 15:30 Mucosa - Nose SARS-CoV-2, Influenza & RSV (PCR) - Final 10/05/24 13:28 Mucosa - Nose SARS-CoV-2, Influenza & RSV (PCR) - Final Radiography Diagnostic Testing: Radiology Impression Abdomen/Pelvis CT 10/05/24 13:14 IMPRESSION: 1. Moderate hydronephrosis and proximal obstructive calculus, no interval change from prior study 2. Large right fat and bladder containing inguinal hernia 3. Hepatic steatosis 4. Prostatomegaly 5. Diverticulosis of the colon with no evidence of diverticulitis One or more dose reduction techniques were used (e.g., Automated exposure control, adjustment of the mA and/or kV according to patient size, use of iterative reconstruction technique). [facility] Head/Neck CTA 10/05/24 13:14 IMPRESSION: Mild atherosclerotic changes with no hemodynamically significant stenosis in the arteries and head and neck. One or more dose reduction techniques were used (e.g., Automated exposure control, adjustment of the mA and/or kV according to patient size, use of iterative reconstruction technique). Reading [facility] Chest X-Ray 10/05/24 14:40 IMPRESSION: No acute abnormality is seen. Reading Location: [facility] Physical Exam Narrative GENERAL: Sleeping but easily arousable HEENT: Atraumatic; normocephalic EYES; Anicteric, Normal Conjunctiva NECK; supple, normal thyroid, RESPIRATORY: Diminished to auscultation CARDIOVASCULAR: Regular S1 S2, GI: soft, normoactive bowel sounds, : No Renal angle tenderness; EXTREMITIES: No edema, no clubbing, MUSCULOSKELETAL: no muscle wasting NEURO: Awake; no lateralizing signs. SKIN: No Rash PSYCH; Flat affect Assessment & Plan Assessment/Plan (1) Acute alteration in mental status: (2) Acute kidney injury: (3) Nephrolithiasis: (4) Hydronephrosis: PLAN: Plan Patient is an 78-year-old gentleman who presented with altered mental status and fever diagnosed with acute urinary tract infection admitted for subsequent management 1. Acute metabolic encephalopathy ? Secondary to suspected acute pyelonephritis. Patient admitted to monitored bed managed with broad-spectrum antibiotic therapy cultures sent. Patient did remain significantly agitated during the night necessitating a sitter being placed in the patient's room 2. Right-sided nephrolithiasis with moderate hydronephrosis ? Patient presented with acute pyelonephritis antibiotics initiated per protocol with ceftriaxone patient was started on Flomax consult placed to urology kept n.p.o. after midnight, pending evaluation by neurology 3. Acute kidney injury ? Suspected to be secondary to prerenal azotemia as well as postobstructive uropathy patient started on IV fluid with subsequent monitoring of electrolytes being ordered 4. Right inguinal hernia ? Incidental finding on CT of the abdomen pelvis obtained on 10/02/2024 plan is for patient to follow with general surgery as outpatient 5. Anemia ? Secondary to chronic disorder monitoring H&H and transfuse if patient becomes symptomatic or hemoglobin falls below 7 6. DVT prophylaxis ? Subcu heparin Time spent in the patient's overall evaluation,decision-making process, review of diagnostic data, adjustment of management, discussion with other providers, nursing nursing and ancillary staff involved in patient's care documentation, 50 Minutes Charges/Coding Visit Charges Inpatient E&M: [address] [facility] Hosp L3
--- NOTE | 2024-10-06 08:57 | CON.PCM.UR_ITS ---
Assessment & Plan Assessment/Plan (1) Hydronephrosis: PLAN: Plan for cystoscopy right stent placement today in the operating room (2) Nephrolithiasis: (3) Acute febrile illness: HPI Consult Data Date of Consult: 10/06/24 Attending Care Provider: Obstructing right mid ureteral calculus HPI Narrative Reason for Consultation: Infected right kidney stone HPI Narrative: JACKIE STEVENS, is a 78 M who presents to the hospital with febrile illness kidney stone he has a stone in the mid right ureter and hydronephrosis plan to take the patient today for surgery for cystoscopy and right stent placement. 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 Medical History unable to obtain Home Medications ?Medication ?Instructions ?Recorded ?Last Taken ?Type ketorolac 10 mg tablet 10 mg PO Q8H PRN pain #10 ta bs 10/02/24 Unknown Rx ondansetron 4 mg disintegrating 4 mg PO Q6H PRN nausea and 10/02/24 Unknown Rx tablet vomiting #20 tabs oxycodone-acetaminophen 5 mg-325 1 tab PO Q6H PRN pain 3 days #12 10/02/24 Unknown Rx mg tablet (Endocet) tabs tamsulosin 0.4 mg capsule (Flomax) 0.4 mg PO DAILY #14 caps 10/02/24 Unknown Rx Allergy/AdvReac Type Severity Reaction Status Date / Time No Known Allergies Allergy Verified 10/02/24 08:20 Social History Smoking Status: Never smoker ROS Constitutional Constitutional: Denies chills, fever(s) or malaise Eyes Eyes: Denies blurry vision or change in vision ENT HEENT: Reports none Cardiovascular Cardiovascular: Denies chest pain or palpitations Respiratory/Chest Respiratory/Chest: Denies cough or shortness of breath with exertion Gastrointestinal Gastrointestinal: Denies abdominal pain, constipation or diarrhea Musculoskeletal Musculoskeletal: Denies back pain, joint stiffness or joint swelling Integumentary Integumentary: Denies dry skin, jaundice, lesions or rash Neurologic Neurologic: Denies confusion, syncope or weakness Psychiatric Psychiatric: Reports none; Denies anxiety or depression Endocrine Endocrinology: Denies excessive sweating, fatigue or flushing Hematologic/Lymphatic Hematologic/Lymphatic: Denies anemia, easy bleeding or easy bruising Physical Exam Const alert and oriented x3 General Appearance: cooperative HEENT normocephalic, head/scalp atraumatic, EAC's normal and TM's normal bilaterally Eyes PERRL and EOMs intact bilaterally Pupil: sluggish Neck no lymphadenopathy, supple and no JVD General: trachea midline Lymph Lymphatic: no lymphadenopathy noted, lymphedema and lymphadenopathy Resp normal respiratory effort, normal air movement and clear to auscultation bilaterally Cardio regular rate, regular rhythm and peripheral pulses 2+ throughout GI soft to palpation, non-tender and non-distended Extremity normal capillary refill and no clubbing, cyanosis or edema General Extremity: no tenderness to palpation of joints or extremities Skin no rashes or lesions noted General Skin Exam: turgor normal Lesions: no lesions Rashes: no rashes Neuro CN's II-XII intact bilaterally Speech: speech normal Motor Exam: strength 5/5 throughout; Negative for general weakness Psych thought process normal, cooperative and affect normal Appearance: appropriate Lab / Micro Data 10/06/24 04:55 10/06/24 04:55 Labs: Laboratory Results - last 24 hr 10/05/24 12:55: Lactic Acid 2.1 H 10/05/24 13:21: WBC 7.5, RBC 3.81 L, Hgb 11.7 L, Hct 35.8 L, MCV 94.0, MCH 30.7, MCHC 32.7, RDW Std Deviation 44.2 H, RDW Coeff of Adeline 12.8, Plt Count 170, MPV 10.9, Immature Gran % (Auto) 0.300, Neut % (Auto) 85.8 H, Lymph % (Auto) 6.5 L, [place] % (Auto) 6.9, Eos % (Auto) 0.1, Baso % (Auto) 0.4, Absolute Neuts (auto) 6.4, Absolute Lymphs (auto) 0.49 L, Nucleated RBC % 0, PT 14.4, INR 1.1, APTT 26.0, Sodium 140, Potassium 4.5, Chloride 102, Carbon Dioxide 22.1, Anion Gap 16 H, BUN 35 H, Creatinine 2.30 H, Est GFR (MDRD) Non-Af 28 L, BUN/Creatinine Ratio 15.3, Glucose 233 H, Calcium 9.4, Total Bilirubin 0.80, AST 18, ALT 19, Alkaline Phosphatase 108, Troponin T High Sens 41 H, Total Protein 6.9, Albumin 4.2, Globulin 2.7, Albumin/Globulin Ratio 1.6 10/05/24 13:28: Urine Color Straw, Urine Clarity Clear, Urine pH 6.0, Ur Specific [place] 1.015, Urine Protein 100 H, Urine Glucose (UA) 1000 H, Urine Ketones 15 H, Urine Occult Blood 150 H, Urine Nitrite Negative, Urine Bilirubin Negative, Urine Urobilinogen Normal, Ur Leukocyte Esterase 25 H, Urine RBC 5-10 SEEN, Urine WBC 0-5 SEEN, Ur Squamous Epith Cells 0-5 SEEN, Urine Bacteria RARE, Urine Mucus 0 SEEN, Urine Opiates Screen NEGATIVE, U Buprenorphine Qual NEGATIVE, Ur Oxycodone Screen PRESUMTIVE POSITIVE, Urine Methadone Screen NEGATIVE, Urine Fentanyl Screen NEGATIVE, Ur Barbiturates Screen NEGATIVE, Ur Phencyclidine Scrn NEGATIVE, Ur Amphetamines Screen NEGATIVE, U Benzodiazepines Scrn NEGATIVE, Urine Cocaine Screen NEGATIVE, U Cannabinoids Screen NEGATIVE 10/05/24 20:13: Troponin T Hi Sens 2 Hr 49 H, Troponin T Hi Sens 2Hr Delta 8 10/06/24 04:55: WBC 7.6, RBC 3.28 L, Hgb 10.1 L, Hct 31.0 L, MCV 94.5 H, MCH 30.8, MCHC 32.6, RDW Std Deviation 44.5 H, RDW Coeff of Adeline 12.9, Plt Count 136 L, MPV 11.2, Sodium 141, Potassium 4.2, Chloride 108, Carbon Dioxide 19.1 L, Anion Gap 15, BUN 30 H, Creatinine 2.09 H, Estim Creat Clear Calc 28.19 L, Est GFR (MDRD) Non-Af 31 L, BUN/Creatinine Ratio 14.4, Glucose 80, Calcium 8.1 Micro: Microbiology 10/05/24 15:30 Mucosa - Nose SARS-CoV-2, Influenza & RSV (PCR) - Final 10/05/24 13:28 Mucosa - Nose SARS-CoV-2, Influenza & RSV (PCR) - Final Imaging Radiology Impression Abdomen/Pelvis CT 10/05/24 13:14 IMPRESSION: 1. Moderate hydronephrosis and proximal obstructive calculus, no interval change from prior study 2. Large right fat and bladder containing inguinal hernia 3. Hepatic steatosis 4. Prostatomegaly 5. Diverticulosis of the colon with no evidence of diverticulitis One or more dose reduction techniques were used (e.g., Automated exposure control, adjustment of the mA and/or kV according to patient size, use of iterative reconstruction technique). Reading Location: [facility] Head/Neck CTA 10/05/24 13:14 IMPRESSION: Mild atherosclerotic changes with no hemodynamically significant stenosis in the arteries and head and neck. One or more dose reduction techniques were used (e.g., Automated exposure control, adjustment of the mA and/or kV according to patient size, use of iterative reconstruction technique). Reading Location: [facility] Chest X-Ray 10/05/24 14:40 IMPRESSION: No acute abnormality is seen. Reading Location: [facility]
--- NOTE | 2024-10-06 08:59 | DCINST_ITS ---
Discharge Instructions Diet Discharge Diet: No restrictions DC O2, CPAP, BIPAP needs Home O2 Discharge instructions: No Dressing / Incision Discharge Activity: Return to Normal Activity and May Not Drive (while taking narcotic pain medications.) Dressing / Incision Call your doctor if you observe: Fever of 101 or Higher Additional Dressing/Incision Instructions:: You have a urinary stent and need to follow up with urology to have it addressed. Follow Up Care Please Follow Up With: Judah Null MD When: Call [phone] for an appointment Test Results: Test results from this visit will be discussed in further detail at your follow- up appointment, if applicable. Discharge Plan Admission Admit Date/Time: 10/05/24 16:25 Attending Provider: Akira Adams Primary Care Provider: Emily Campbell Consulting Providers: Judah Null; Jeremie Bhatt Discharge Orders/Prescriptions Prescriptions: No Action ketorolac 10 mg tablet 10 mg PO Q8H PRN (Reason: pain) Qty: 10 0RF Rx Instructions: maximum total duration of 5 days from all oral, intranasal, or parenteral formulations ondansetron 4 mg tablet,disintegrating 4 mg PO Q6H PRN (Reason: nausea and vomiting) Qty: 20 0RF tamsulosin [Flomax] 0.4 mg capsule 0.4 mg PO DAILY Qty: 14 0RF oxycodone-acetaminophen [Endocet] 5-325 mg tablet 1 tab PO Q6H PRN (Reason: pain) 3 Days Qty: 12 0RF Referrals / Follow Up: Emily Campbell, CHAUNCEY-C [Primary Care Provider] -
--- NOTE | 2024-10-06 09:49 | CASEMGMT ---
Pt nurse states son called in, received contacts, added to pt chart at this time.
[2024-10-06] MEDS: Ceftriaxone 1 GM/50 ML BAG IV (10:26)
[2024-10-06] MEDS: 0.9% Saline Lock 10 ML Syringe IV (10:26)
--- NOTE | 2024-10-06 13:55 | CASEMGMT ---
TAIWO PALMER ASSESSMENT Pt has been confused. Call placed to sonThierry. Introduced self and role. Care providers, pharmacy, and demographics verified/updated at this time. Strata:?2 PCP: CHAUNCEY Campbell. Pt also goes to [facility]. 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 Pt gets most of his medications via mail. Insurance: [employer] [facility] Prescription Benefit: Yes Living Will/HPOA: none LNOK: SonThierry (only child) Living Arrangements: Lives alone in one-story home w/basement, 3 tiny steps to enter. Pt is independent w/ADL's and IADL's. He is active, goes to manage the furnace, adds wood, li the fire. Family checks on him daily (son, DIL, nephew) and assist him, as needed. Transportation:?Pt drives. Family can assist as needed. DME: States has the following DME: BP machine, functioning glucometer w/supplies. Pt does not have a medical alert button. Son states they would be interested in information. Mara, MS2 TAIWO PALMER, made aware. Son also inquired if the [facility] may be able to help w[facility]getting a medical alert. TAIWO PALMER advised him to f[facility] with [facility] about [facility]. HHC[facility]SNF: [facility]. Son states he may have had HHC in the past. Son states pt will not want to go to a SNF, stating he will want to go home. Son states they have plenty of people in their family and can stay w/pt 24/7 for awhile if needed. He states they would be interested in HHC, if needed. Son aware pt is confused and therapy will evaluate when appropriate. CM to follow for any recommendations. PLAN: TBD, pending course of treatment and progress w/therapy. Follow for possible HHC. Pt/family to be provided w/medical alert info. Nikki BRO RN, CM
--- NOTE | 2024-10-06 15:32 | PCM.PRE.AN2 ---
ASA Classification* ASA Classification ASA Classification: 3 Assessment & Plan Anesthesia* Anesthesia Assessment Anesthesia Assessment: Discussed sedation and/or anesthesia options, risks, benefits, and alternatives with patient/parents/legal guardian/POA. Questions invited. The patient/parents/legal guardian/POA seems to understand and agrees to proceed with anesthesia plan. Reviewed the physical assessment, medical history, allergy history and patient home medications list prior to surgery/procedure/anesthetic and documented any changes. Performed airway and anesthesia risk assessments. Anesthesia Type Anesthesia Type: MAC Anesthesia Focused Assessment* Temperature: 99.8 F Pulse Rate: 62 Blood Pressure: 149/74 Respiratory Rate: 18 Pulse Ox: 99 Oxygen Flow Rate (L/min): 2 Airway Assessment Mouth opens: >3 cm Mallampati Score: II Focused Labs Anesthesia Preop lab: CBC WBC 7.6 K/mm3 (4.4-11.0) 10/06/24 04:55 10/06/24 RBC 3.28 M/mm3 (4.6-6.2) L 10/06/24 04:55 10/06/24 Hgb 10.1 g/dL (13.0-16.5) L 10/06/24 04:55 10/06/24 Hct 31.0 % (40-54) L 10/06/24 04:55 10/06/24 Plt Count 136 K/mm3 (150-450) L 10/06/24 04:55 10/06/24 CHEMISTRY Potassium 4.2 mmol/L (3.3-5.1) 10/06/24 04:55 10/06/24 Sodium 141 mmol/L (133-145) 10/06/24 04:55 10/06/24 BUN 30 mg/dL (4-19) H 10/06/24 04:55 10/06/24 Creatinine 2.09 mg/dL (0.70-1.20) H 10/06/24 04:55 10/06/24 Glucose 80 mg/dL (70-99) 10/06/24 04:55 10/06/24 COAG PT 14.4 SECONDS (11.7-14.9) 10/05/24 13:21 10/05/24 Pre-Assessment Diagnosis/Proposed Procedure Planned Operative Procedure(s): Cystoscopy, ureteral stent placement Anesthesia History 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 When Was Last Pacemaker Check QUESTION #4 FULL TEXT: You/Your Family Experience fever (hyperthermia) with Anesthesia Last Oral Intake Last Oral intake: Last Oral Intake NPO since Meds taken in AM with sips of water? Meds patient instructed to take am of surgery PONV PONV - duralumin metalworker: PONV - duralumin metalworker Female HX of Motion Sickness HX of N/V After Surgery Non-Smoker Duration of Surgery greater than 60 minutes Number of Risk Factors PONV Score Height & Weight Height & Weight: Anesthesia: Height & Weight Height 5 ft 9 in 10/06/24 10:59 Weight: 73.482 kg 10/06/24 10:59 Body Mass Index (BMI) 23.9 10/05/24 19:53 Respiratory Assessment Respiratory Assessment - duralumin metalworker: Respiratory Tract Infection Hx - duralumin metalworker Hx Respiratory Tract Infection STOP Sleep Apnea STOP Sleep Apnea - duralumin metalworker: STOP Sleep Apnea - duralumin metalworker Hx Hypertension No 10/06/24 13:57 Hx Sleep Apnea No 10/05/24 19:53 CPAP BIPAP Do you snore loudly (louder No 10/05/24 19:53 than talking or can be heard Do you often feel tired/ No 10/05/24 19:53 fatigued/ sleepy during daytime? Has anyone observed you stop No 10/05/24 19:53 breathing during sleep? STOP Results Negative 10/05/24 19:53 QUESTION #5 FULL TEXT : Do you snore loudly (louder than talking or can be heard through closed doors)? 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 Specify any problems Hx of Preganancy in last 3 Months Nurse Filling Out Transfusion & Questions: Date: Time: Patient unable to answer at Yes 10/05/24 19:53 this time (ie. confused, unrespo /Reproduction History /Reproductive History - duralumin metalworker: /Reproductive Hx- duralumin metalworker Hx Now Gestational Age (in weeks): EDC: Hx Hx Para Hx Section SAB Active Medications Active Medications: Current Medications Generic Name Dose Route Start Last Admin Trade Name Freq PRN Reason Stop Dose Admin Acetaminophen 650 mg 10/05/24 19:50 10/06/24 00:55 Acetaminophen 325 Mg Tablet PO 650 mg Q6H PRN PRN Administration Pain 1-10 Or Fever>100.7 Heparin Sodium (Porcine) 5,000 unit 10/06/24 10:00 Heparin Injection (Vial) 5,000 Unit/Ml Vial SC Q12 GABINO Ceftriaxone Sodium 1 gm in 50 mls @ 100 mls/hr 10/06/24 10:00 10/06/24 10:56 Rocephin IV Infused Q24 GABINO Infusion Sodium Chloride 100 mls @ 15 mls/hr 10/05/24 20:02 IV .Q6H40M PRN Saline Flush Sodium Chloride 100 mls @ 15 mls/hr 10/05/24 20:02 IV .Q6H40M PRN Additional IVPB Infusion Melatonin 3 mg 10/05/24 19:50 10/06/24 00:55 Melatonin 3 Mg Tablet PO 3 mg QHS PRN PRN Administration INSOMNIA Nutritional Formula (Lactose Free) 120 ml 10/06/24 08:00 10/06/24 13:08 Ensure Plus High Protein 120 Ml Liquid PO Not Given TIDCM GABINO Ondansetron HCl 4 mg 10/05/24 19:50 Ondansetron 4 Mg/2 Ml Vial IV Q8H PRN PRN NAUSEA/VOMITING Sodium Chloride 10 - 40 ml 10/05/24 20:02 10/06/24 10:26 0.9% Saline Lock 10 Ml Syringe IV 10 ml UD PRN Administration SALINE FLUSH Tamsulosin HCl 0.4 mg 10/05/24 23:15 10/05/24 23:50 Tamsulosin Hcl 0.4 Mg Capsule PO 0.4 mg DAILY@1730 GABINO Administration PFSH Medical History Hypertension Hyperlipidemia 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 Medical History unable to obtain Home Medications ?Medication ?Instructions ?Recorded ?Last Taken ?Type ketorolac 10 mg tablet 10 mg PO Q8H PRN pain #10 tabs 10/02/24 Unknown Rx ondansetron 4 mg disintegrating 4 mg PO Q6H PRN nausea and 10/02/24 Unknown Rx tablet vomiting #20 tabs oxycodone-acetaminophen 5 mg-325 1 tab PO Q6H PRN pain 3 days #12 10/02/24 Unknown Rx mg tablet (Endocet) tabs tamsulosin 0.4 mg capsule (Flomax) 0.4 mg PO DAILY #14 caps 10/02/24 Unknown Rx Allergy/AdvReac Type Severity Reaction Status Date / Time No Known Allergies Allergy Verified 10/02/24 08:20 Social History Smoking Status: Never smoker Review of Systems (Anesthesia) ROS Narrative System reviewed and no additional complaints, except as documented.
[2024-10-06] MEDS: 0.9% Normal Saline (1000mL) 1,000 ML 15 ML IV (16:55)
--- NOTE | 2024-10-06 17:40 | PCM.OPRPT ---
Operative Report (Standard) Operative Information Date of Procedure: 10/06/24 Pre-Operative Diagnosis: Obstructive right ureteral calculi with infection Post-Operative Diagnosis: The same Surgery/Procedure Performed: Cystoscopy, retrograde pyelogram and right stent placement informatics nurse specialist: No Type of Anesthesia: IV Sedation RN Documented Start/Stop Times: Operation Date: 10/06/24 16:00 Case Time Into Pre-Op 10/06/24 15:41 Out of Pre-Op 10/06/24 17:01 Anesthesia Start 10/06/24 17:23 Into Room 10/06/24 17:23 Procedure Start 10/06/24 17:33 Procedure Start Time: 17:33 Procedure Stop Time: 17:41 Select all DRAINS/GRAFTS/IMPLANTS that apply: Drains Drain details: 6 B[place] by 26 cm stent Estimated Blood Loss: None Specimen collected: No Description of surgery: 78-year-old male who presents to the hospital with metabolic encephalopathy he is confused was found to have an obstructing stone in the mid right ureter we believe it is causing him an infection and confusion and organ to take him urgently as an emergency to place a stent and on the right side to unblock the kidney he will continue with antibiotics to clear this infection. He underwent sedation by anesthesia he was placed in dorsolithotomy position when of the bladder with a 21 B[place] rigid cystourethroscope identified the right ureteral orifice after a few tries and I was able to the the wire up the right ureter coiled in the right kidney the right kidney was hydronephrotic filled with contrast from the prior CAT scan after this was performed a retrograde pyelograms performed then I put a wire up into the right kidney and then I was getting purulent and looking urine from the kidney pulled the wire and the stent coiled in the kidney and bladder in good position bladder was drained patient anesthetic reversed and he will be transferred to the PACU to recover once this infection is cleared then we will set him up for shockwave lithotripsy to keep to treat the stone. Surgical Findings: Hydronephrotic right kidney purulent urine from the right kidney Complications Complications: No Admit VTE Documentation VTE Present on Admission: No VTE Mechan Device Prophylaxis: SCD's VTE Pharm Prophylaxis ordered?: No
--- NOTE | 2024-10-06 17:53 | PCM.POST.ANE ---
Anesthesia: Postop Eval I Current Vital Signs Temperature: 96 F Pulse Rate: 64 Blood Pressure: 150/52 Respiratory Rate: 16 Pulse Ox: 96 Oxygen Flow Rate (L/min): 4 Assessment Airway patent: Yes Spontaneous unlabored respirations: Yes Mental status: Confused nausea: No Vomiting: No Anesthesia Complication: No Fluid Hydration Crystalloid volume administer (ml): 20 Total IV fluid infused: 20 Progress Note Anesthesia document: Postop Eval 1 completed: Yes
--- NOTE | 2024-10-06 17:58 | PCM.POSTANE2 ---
Anesthesia Postop Eval I Sum Postop Eval Completion status Anesthesia document: Postop Eval 1 completed: Yes Anesthesia Postop Eval I Summary Anesthesia Postop Eval I Summary: Anesthesia Postop Eval I: Assessment Summary Airway patent Yes 10/06/24 17:54 Spontaneous unlabored Yes 10/06/24 17:54 respirations Mental status Confused 10/06/24 17:54 nausea No 10/06/24 17:54 Vomiting No 10/06/24 17:54 Anesthesia Postop Eval I: Fluid Summary Crystalloid volume administer 20 10/06/24 17:54 (ml) Colloids volume administered ( ml) Blood Product volume administered (ml) Total IV fluid infused 20 10/06/24 17:54 Anesthesia Postop Eval I: Summary Notes Anesthesia Complication No 10/06/24 17:54 Anesthesia Complication Comment: Post-operative progress note Anesthesia: Postop Eval II Evaluation Mental status: Awake Pain Level: 0 nausea: No Vomiting: No
[2024-10-06] MEDS: Tamsulosin HCl 0.4 MG Capsule PO (23:10)
[2024-10-06] MEDS: Heparin Injection (Vial) 5,000 UNIT/ML VIAL 5000 UNIT SC (23:11)
[2024-10-07 03:16] VITALS: BP 144/58; PULSE 51; RESP 20; TEMP 36.8; O2SAT 100
[2024-10-07 06:28] LABS: Absolute Lymphocyte Count 1.09 X10^3/uL (0.83-4.51); Absolute Neutrophil Count 5.2 X10^3/uL (2.0-7.7); Basophil# 0.03 X10^3/uL; Basophil% 0.4 % (0-1); Eosinophil# 0.09 X10^3/uL; Eosinophils% 1.2 % (0-5); Hematocrit 31.2 % (40-54); Hemoglobin 10.2 g/dL (13.0-16.5); Lymphocyte # 1.09 X10^3/ul (0.83-4.51); Lymphocyte % 14.8 % (19-41); Mean Corp Hgb Conc 32.7 g/dL (32-36); Mean Corpuscular Volume 94.8 fL (80-94); Mean Platelet Vol. 11.1 fl (6.2-12.0); Monocyte% 12.2 % (0-10); NRBC Flagged by Analyzer 0 % (0-5); Neutrophil # 5.22 X10^3/uL (2.7-7.7); Neutrophil % 70.9 % (47-70); Platelet Count 137 K/mm3 (150-450); RBC Distribution Width CV 12.9 % (11.6-14.6); Red Blood Count 3.29 M/mm3 (4.6-6.2); White Blood Count 7.4 K/mm3 (4.4-11.0)
[2024-10-07 06:58] LABS: Anion Gap 14 (5-15); BUN 31 mg/dL (4-19); BUN/Creat Ratio 18.8 RATIO (10-20); Calcium,Total 8.1 mg/dL (7.6-11.0); Carbon Dioxide 20.3 mmol/L (21.0-32.0); Chloride 110 mmol/L (98-108); Creatinine, Serum 1.62 mg/dL (0.70-1.20); EST Glomerular Filtration Rate 43 (>60); Estimated Creatinine Clearance 36.37 ml/min (50-250); Glucose 51 mg/dL (70-99); Magnesium 1.5 mg/dL (1.5-2.2); Potassium 3.7 mmol/L (3.3-5.1); Sodium Level 145 mmol/L (133-145)
--- NOTE | 2024-10-07 07:41 | PCM.CONS.B ---
Consult Date of Consult: 10/07/24 Reason for Consult Status post stent placement for obstruction and infection that was causing altered mental status, this morning his mental status is improving he is still fairly weak. He had purulent urine coming from that kidney after the stent was placed on discharge need to follow-up in my office and I will have to get him set up for surgery for shockwave lithotripsy to treat the kidney stone.
--- NOTE | 2024-10-07 08:05 | PCM.PN.HOSP ---
Reason for Visit Reason for Visit: Diagnoses Unspecified hydronephrosis (10/05/24) Acute kidney failure, unspecified (10/05/24) Calculus of kidney (10/05/24) Altered mental status, unspecified (10/05/24) Fever, unspecified (10/05/24) Subjective Subjective Patient underwent cystoscopy, retrograde pyelogram and right stent placement on 10/06/[address] Null urine cultures and blood culture still pending Objective Data Objective Data Vital Signs: Vital Signs Temp Pulse Resp BP Pulse Ox O2 Del Method O2 Flow Rate 98.3 F 51 L 20 H 144/58 H 100 Nasal Cannula 2 10/07/24 03:16 10/07/24 03:16 10/07/24 03:16 10/07/24 03:16 10/07/24 03:16 10/07/24 03:16 10/07/24 03:16 Oxygen Flow Rate (L/min) 2 Oxygen Delivery Method Nasal Cannula Weight: 73.482 kg Body Mass Index (BMI) 23.9 Intake & Output: Intake and Output for Last 24 Hours 10/05/24 10/06/24 10/07/24 23:59 23:59 23:59 Intake Total 2050 / 3050 1145.5 / 1145.5 Output Total 400 / 400 250 / 250 400 / 400 Balance 1650 / 2650 895.5 / 895.5 -400 / -400 Lab / Micro Data 10/07/24 05:59 10/07/24 05:59 Labs: Laboratory Results - last 24 hr 10/07/24 05:59: WBC 7.4, RBC 3.29 L, Hgb 10.2 L, Hct 31.2 L, MCV 94.8 H, MCH 31.0, MCHC 32.7, RDW Std Deviation 45.0 H, RDW Coeff of Adeline 12.9, Plt Count 137 L, MPV 11.1, Immature Gran % (Auto) 0.500, Neut % (Auto) 70.9 H, Lymph % (Auto) 14.8 L, [place] % (Auto) 12.2 H, Eos % (Auto) 1.2, Baso % (Auto) 0.4, Absolute Neuts (auto) 5.2, Absolute Lymphs (auto) 1.09, Nucleated RBC % 0, Sodium 145, Potassium 3.7, Chloride 110 H, Carbon Dioxide 20.3 L, Anion Gap 14, BUN 31 H, Creatinine 1.62 H, Estim Creat Clear Calc 36.37 L, Est GFR (MDRD) Non-Af 43 L, BUN/Creatinine Ratio 18.8, Glucose 51 L, Calcium 8.1, Phosphorus 3.0, Magnesium 1.5 Micro: Microbiology 10/05/24 15:30 Mucosa - Nose SARS-CoV-2, Influenza & RSV (PCR) - Final 10/05/24 13:28 Mucosa - Nose SARS-CoV-2, Influenza & RSV (PCR) - Final Physical Exam Narrative GENERAL: Patient in no apparent distress HEENT: Atraumatic; normocephalic EYES; Anicteric, Normal Conjunctiva NECK; supple, normal thyroid, RESPIRATORY: Diminished to auscultation CARDIOVASCULAR: Regular S1 S2, GI: soft, normoactive bowel sounds, : No Renal angle tenderness; EXTREMITIES: No edema, no clubbing, MUSCULOSKELETAL: no muscle wasting NEURO: Awake; no lateralizing signs. SKIN: No Rash PSYCH; Flat affect Assessment & Plan Assessment/Plan (1) Acute alteration in mental status: (2) Acute kidney injury: (3) Nephrolithiasis: (4) Hydronephrosis: PLAN: Plan Patient is an 78-year-old gentleman who presented with altered mental status and fever diagnosed with acute urinary tract infection admitted for subsequent management 1. Acute metabolic encephalopathy ? Secondary to suspected acute pyelonephritis. Patient admitted to monitored bed managed with broad-spectrum antibiotic therapy cultures sent. Patient did remain significantly agitated during the night necessitating a sitter being placed in the patient's room ? 10/07/2024; patient encephalopathy resolving. Patient is much more interactive compared to previous day 2. Right-sided nephrolithiasis with moderate hydronephrosis ? Patient presented with acute pyelonephritis antibiotics initiated per protocol with ceftriaxone patient was started on Flomax consult placed to urology kept n.p.o. after midnight, pending evaluation by Urology 10/07/2024 STEMI patient underwent cystoscopy, retrograde pyelogram and right stent placement on 10/06/[address] Null urine cultures and blood culture still pending 3. Acute kidney injury ? Suspected to be secondary to prerenal azotemia as well as postobstructive uropathy patient started on IV fluid with subsequent monitoring of electrolytes being ordered 4. Right inguinal hernia ? Incidental finding on CT of the abdomen pelvis obtained on 10/02/2024 plan is for patient to follow with general surgery as outpatient 5. Anemia ? Secondary to chronic disorder monitoring H&H and transfuse if patient becomes symptomatic or hemoglobin falls below 7 6. Elevated troponins ? Due to demand ischemia 7. DVT prophylaxis ? Subcu heparin Time spent in the patient's overall evaluation,decision-making process, review of diagnostic data, adjustment of management, discussion with other providers, nursing nursing and ancillary staff involved in patient's care documentation, 36 Minutes Charges/Coding Visit Charges Inpatient E&M: 69323 Subs Hosp L2
[2024-10-07 09:15] VITALS: BP 134/59; PULSE 52; RESP 17; TEMP 36.4; O2SAT 99
[2024-10-07] MEDS: Heparin Injection (Vial) 5,000 UNIT/ML VIAL 5000 UNIT SC ×2 (09:36→21:22)
[2024-10-07] MEDS: Ceftriaxone 1 GM/50 ML BAG IV (09:37)
[2024-10-07] MEDS: Ensure Plus High Protein 120 ML LIQUID PO ×3 (09:37→18:05)
[2024-10-07] MEDS: 0.9% Saline Lock 10 ML Syringe IV (09:38)
[2024-10-07 09:51] VITALS: O2SAT 93
--- NOTE | 2024-10-07 11:41 | CPS ---
SMI and Pep held, pt sleeping
--- NOTE | 2024-10-07 15:15 | CASEMGMT ---
Addendum entered by Mara Chiang 10/07/24 16:13: Nurse asked TAIWO PALMER to come to room to speak with pt and Thierry. Discussed the same conversation as had a little while ago. Rena Elizondo now present in room and pt states that it is ok to have her on the contact list. Made pt aware she was removed but may add back. He states to leave it how it is. Rena asks about SNF for pt. Discussed that if this is what pt feels he needs and he is agreeable this can be looked at but the patient's insurance would determine need. Pt does not speak up about this. Discussed that pt denied need for HHC or outpt and SNF is at the opposite end of the spectrum of this. Plan to see how pt does tomorrow with therapy and reevaluate dc plan. Original Note: TAIWO PALMER into pt room, pt sitting up in chair, just walked with therapy. Pt son Thierry present. Pt states he plans to return home after this hospital stay. Pt states he does not feel strong as usual but denies need for any HHC therapy or SN or outpt therapy. Pt son Thierry checks on pt daily. Pt states he does not know who Rena Eliozndo is on his contact list and wishes that she is removed. Pt denies any further needs at this time. Pt is A&Ox3.
[2024-10-07 15:29] VITALS: BP 153/97; PULSE 68; RESP 19; TEMP 36.7; O2SAT 95
[2024-10-07] MEDS: Tamsulosin HCl 0.4 MG Capsule PO (18:06)
[2024-10-07 21:11] VITALS: BP 158/70; PULSE 66; RESP 18; TEMP 36.6; O2SAT 94
[2024-10-08] VITALS (12 sets, daily range): BP systolic 139–189; BP diastolic 59–78; PULSE 64–81; RESP 16–20; TEMP 36.6–36.7; O2SAT 94–98
--- NOTE | 2024-10-08 04:09 | PCM.HOSP.N ---
Hospitalist Note Patient with onset of mild cough and congestion per discussion with nursing staff. To be cautious will obtain COVID/influenza/RSV PCR.
[2024-10-08] MEDS: Albuterol 2.5 MG/3 ML VIAL.NEB. INHALATION ×2 (04:48→15:51)
[2024-10-08] MEDS: guaiFENesin 1,200 MG Tablet 1200 MG PO (05:13)
[2024-10-08] MEDS: Acetaminophen 325 MG Tablet 650 MG PO ×2 (05:14→15:32)
[2024-10-08 06:12] LABS: Absolute Lymphocyte Count 0.98 X10^3/uL (0.83-4.51); Basophil# 0.03 X10^3/uL; Basophil% 0.5 % (0-1); Eosinophil# 0.11 X10^3/uL; Eosinophils% 1.9 % (0-5); Hematocrit 32.8 % (40-54); Hemoglobin 10.9 g/dL (13.0-16.5); Lymphocyte # 0.98 X10^3/ul (0.83-4.51); Lymphocyte % 16.9 % (19-41); Mean Corp Hgb Conc 33.2 g/dL (32-36); Mean Corpuscular Hgb 30.6 pg (27.0-32.0); Mean Corpuscular Volume 92.1 fL (80-94); Mean Platelet Vol. 11.1 fl (6.2-12.0); Monocyte# 0.67 X10^3/uL; Monocyte% 11.5 % (0-10); NRBC Flagged by Analyzer 0 % (0-5); Neutrophil % 68.9 % (47-70); Platelet Count 147 K/mm3 (150-450); RBC Distribution Width CV 12.4 % (11.6-14.6); RBC Distribution Width SD 42.4 fl (35.1-43.9); Red Blood Count 3.56 M/mm3 (4.6-6.2); White Blood Count 5.8 K/mm3 (4.4-11.0)
[2024-10-08 06:38] LABS: Anion Gap 16 (5-15); BUN 28 mg/dL (4-19); Calcium,Total 8.4 mg/dL (7.6-11.0); Carbon Dioxide 19.2 mmol/L (21.0-32.0); Chloride 107 mmol/L (98-108); EST Glomerular Filtration Rate 61 (>60); Glucose 100 mg/dL (70-99); Potassium 3.7 mmol/L (3.3-5.1); Sodium Level 142 mmol/L (133-145)
--- NOTE | 2024-10-08 08:01 | PCM.PN.HOSP ---
Reason for Visit Reason for Visit: Diagnoses Unspecified hydronephrosis (10/05/24) Acute kidney failure, unspecified (10/05/24) Calculus of kidney (10/05/24) Altered mental status, unspecified (10/05/24) Fever, unspecified (10/05/24) Subjective Subjective Patient seen appears to be back to baseline. Patient urine cultures so far negative to date. Patient complained of feeling tired when asked whether he is interested in being discharged to a senior care facility patient answered in affirmative Objective Data Objective Data Vital Signs: Vital Signs Temp Pulse Resp BP Pulse Ox O2 Del Method O2 Flow Rate 97.9 F 71 18 158/59 H 94 Room Air 1 10/08/24 03:30 10/08/24 05:12 10/08/24 04:52 10/08/24 05:12 10/08/24 03:30 10/08/24 03:30 10/07/24 09:15 Oxygen Flow Rate (L/min) 1 Oxygen Delivery Method Room Air Weight: 73.482 kg Body Mass Index (BMI) 23.9 Intake & Output: Intake and Output for Last 24 Hours 10/06/24 10/07/24 10/08/24 23:59 23:59 23:59 Intake Total 1145.5 / 1145.5 450 / 450 Output Total 250 / 250 700 / 900 450 / 450 Balance 895.5 / 895.5 -250 / -450 -450 / -450 Lab / Micro Data 10/08/24 05:49 10/08/24 05:49 Labs: Laboratory Results - last 24 hr 10/08/24 05:49: WBC 5.8, RBC 3.56 L, Hgb 10.9 L, Hct 32.8 L, MCV 92.1, MCH 30.6, MCHC 33.2, RDW Std Deviation 42.4, RDW Coeff of Adeline 12.4, Plt Count 147 L, MPV 11.1, Immature Gran % (Auto) 0.300, Neut % (Auto) 68.9, Lymph % (Auto) 16.9 L, [place] % (Auto) 11.5 H, Eos % (Auto) 1.9, Baso % (Auto) 0.5, Absolute Neuts (auto) 4.0, Absolute Lymphs (auto) 0.98, Nucleated RBC % 0, Sodium 142, Potassium 3.7, Chloride 107, Carbon Dioxide 19.2 L, Anion Gap 16 H, BUN 28 H, Creatinine 1.20, Estim Creat Clear Calc 49.10 L, Est GFR (MDRD) Non-Af 61, BUN/Creatinine Ratio 23.0 H, Glucose 100 H, Calcium 8.4 Micro: Microbiology 10/08/24 04:44 Mucosa - Nose SARS-CoV-2, Influenza & RSV (PCR) - Final 10/05/24 13:28 Urine, Catheterized Urine Culture - Final Culture exhibits no growth. 10/05/24 15:30 Mucosa - Nose SARS-CoV-2, Influenza & RSV (PCR) - Final 10/05/24 13:28 Mucosa - Nose SARS-CoV-2, Influenza & RSV (PCR) - Final Physical Exam Narrative GENERAL: Patient in no apparent distress HEENT: Atraumatic; normocephalic EYES; Anicteric, Normal Conjunctiva NECK; supple, normal thyroid, RESPIRATORY: Diminished to auscultation CARDIOVASCULAR: Regular S1 S2, GI: soft, normoactive bowel sounds, : No Renal angle tenderness; EXTREMITIES: No edema, no clubbing, MUSCULOSKELETAL: no muscle wasting NEURO: Awake; no lateralizing signs. SKIN: No Rash PSYCH; Flat affect Assessment & Plan Assessment/Plan (1) Acute alteration in mental status: (2) Acute kidney injury: (3) Nephrolithiasis: (4) Hydronephrosis: PLAN: Plan Patient is an 78-year-old gentleman who presented with altered mental status and fever diagnosed with acute urinary tract infection admitted for subsequent management 1. Acute metabolic encephalopathy ? Secondary to suspected acute pyelonephritis. Patient admitted to monitored bed managed with broad-spectrum antibiotic therapy cultures sent. Patient did remain significantly agitated during the night necessitating a sitter being placed in the patient's room ? 10/07/2024; patient encephalopathy resolving. Patient is much more interactive compared to previous day ? 10/08/2024; patient back to baseline 2. Right-sided nephrolithiasis with moderate hydronephrosis ? Patient presented with acute pyelonephritis antibiotics initiated per protocol with ceftriaxone patient was started on Flomax consult placed to urology kept n.p.o. after midnight, pending evaluation by Urology 10/07/2024; patient underwent cystoscopy, retrograde pyelogram and right stent placement on 10/06/[address] Null urine cultures and blood culture still pending ? 10/08/2024; patient urine cultures so far negative to date 3. Acute kidney injury ? Suspected to be secondary to prerenal azotemia as well as postobstructive uropathy patient started on IV fluid with subsequent monitoring of electrolytes being ordered ? 10/08/2024 BRITTANEY resolved 4. Right inguinal hernia ? Incidental finding on CT of the abdomen pelvis obtained on 10/02/2024 plan is for patient to follow with general surgery as outpatient 5. Anemia ? Secondary to chronic disorder monitoring H&H and transfuse if patient becomes symptomatic or hemoglobin falls below 7 6. Elevated troponins ? Due to demand ischemia 7. DVT prophylaxis ? Subcu heparin 8. Physical deconditioning ? Requested for PT OT eval and social service manager to assist with discharge planning Time spent in the patient's overall evaluation,decision-making process, review of diagnostic data, adjustment of management, discussion with other providers, nursing nursing and ancillary staff involved in patient's care documentation, 36 Minutes Charges/Coding Visit Charges Inpatient E&M: 79047 Subs Hosp L2
[2024-10-08] MEDS: Pantoprazole Sodium 20 MG Tablet PO (10:10)
[2024-10-08] MEDS: Metoprolol Tartrate 25 MG Tablet PO (10:10)
[2024-10-08] MEDS: Ferrous Sulfate 325 MG Tablet PO ×2 (10:10→16:34)
[2024-10-08] MEDS: Ezetimibe 10 MG Tablet PO (10:10)
[2024-10-08] MEDS: amLODIPine 10 MG Tablet PO (10:10)
[2024-10-08] MEDS: Heparin Injection (Vial) 5,000 UNIT/ML VIAL 5000 UNIT SC (10:11)
[2024-10-08] MEDS: Ceftriaxone 1 GM/50 ML BAG IV (10:21)
[2024-10-08] MEDS: 0.9% Saline Lock 10 ML Syringe IV ×2 (10:21→15:33)
[2024-10-08] MEDS: hydrALAZINE 20 MG/ML Vial 10 MG IV ×2 (11:26→15:31)
[2024-10-08] MEDS: Ensure Plus High Protein 120 ML LIQUID PO (11:34)
--- NOTE | 2024-10-08 12:03 | CASEMGMT ---
Addendum entered by Mara Chiang 10/08/24 13:58: TAIWO PALMER into pt room as pt nurse states that the pt is now considering SNF. Pt states he does not feel safe at home but he does not want to go to a SNF. He is aware that should he decide to go home, the plan will be for dc today. Pt states she does not feel safe to do this. Discussed SNF s/t, pt states he does think it is what he needs. Pt agreeable to this at this time. Updated SW. Addendum entered by Mara Chiang 10/08/24 12:08: Provided pt with medic alert information handout. Pt denies need for a walker at this time. Original Note: TAIWO PALMER into pt room, pt states he feels he did ok with therapy this morning. Discussed homegoing services. Pt is now agreeable to going home with [facility]. Discussed SN, PT and OT. Pt agreeable to this. Pt aware that the dc news production assistant will provide him with a list and request his top 3 preferences. Pt is aware he will dc today. Requested dc news production assistant to make list and give to pt and obtain choices.
--- NOTE | 2024-10-08 12:54 | DS.PCM_ITS ---
Providers Date of Admission: 10/05/24 Date of Discharge: 10/08/24 Primary Care Physician: JOSIE Frye Consultations 10/05/24 19:50 Consult: Urology Routine Consulting Provider: Judah Null Reason for Consult: R proximal obstructive calculus w/ moderate hydronephrosis EMERGENT Consult: No MD Notified: Yes Date Notified: 10/05/24 Time Notified: 16:56 Method of Notification: Verbal Reason For Visit: NEPHROLITHIASIS W/ CONCERN FOR UTI W/ SEPSIS Diagnosis Discharge Diagnosis (1) Acute alteration in mental status: Status: Acute Code(s): R41.82 - Altered mental status, unspecified (2) Acute kidney injury: Status: Acute Code(s): N17.9 - Acute kidney failure, unspecified (3) Nephrolithiasis: Status: Acute Code(s): N20.0 - Calculus of kidney (4) Hydronephrosis: Status: Acute Code(s): N13.30 - Unspecified hydronephrosis Plan Patient is an 78-year-old gentleman who presented with altered mental status and fever diagnosed with acute urinary tract infection admitted for subsequent management 1. Acute metabolic encephalopathy ? Secondary to suspected acute pyelonephritis. Patient admitted to monitored bed managed with broad-spectrum antibiotic therapy cultures sent. Patient did remain significantly agitated during the night necessitating a sitter being placed in the patient's room ? 10/07/2024; patient encephalopathy resolving. Patient is much more interactive compared to previous day ? 10/08/2024; patient back to baseline 2. Right-sided nephrolithiasis with moderate hydronephrosis ? Patient presented with acute pyelonephritis antibiotics initiated per protocol with ceftriaxone patient was started on Flomax consult placed to urology kept n.p.o. after midnight, pending evaluation by Urology 10/07/2024; patient underwent cystoscopy, retrograde pyelogram and right stent placement on 10/06/[address] Null urine cultures and blood culture still pending ? 10/08/2024; patient urine cultures so far negative to date. Patient was not discharged on any antibiotic. 3. Acute kidney injury ? Suspected to be secondary to prerenal azotemia as well as postobstructive uropathy patient started on IV fluid with subsequent monitoring of electrolytes being ordered ? 10/08/2024 BRITTANEY resolved 4. Right inguinal hernia ? Incidental finding on CT of the abdomen pelvis obtained on 10/02/2024 plan is for patient to follow with general surgery as outpatient 5. Anemia ? Secondary to chronic disorder monitoring H&H and transfuse if patient becomes symptomatic or hemoglobin falls below 7 6. Elevated troponins ? Due to demand ischemia 7. DVT prophylaxis ? Subcu heparin 8. Physical deconditioning ? Requested for PT OT eval and social media senior associate to assist with discharge planning ? Patient was discharged home with home health/PT Time spent in the patient's overall evaluation,decision-making process, review of diagnostic data, adjustment of management, discussion with other providers, nursing nursing and ancillary staff involved in patient's care documentation, 36 Minutes Medications at Discharge Home Medications ketorolac 10 mg tablet 10 mg PO Q8H PRN pain #10 tabs 10/02/24 ondansetron 4 mg disintegrating tablet 4 mg PO Q6H PRN nausea and vomiting #20 tabs 10/02/24 oxycodone-acetaminophen 5 mg-325 mg tablet (Endocet) 1 tab PO Q6H PRN pain 3 days #12 tabs 10/02/24 acetaminophen 500 mg tablet (Acetaminophen Extra Strength) 1,000 mg PO Q6H PRN pain 10/07/24 amlodipine 10 mg tablet 10 mg PO DAILY bp 10/07/24 aspirin 81 mg tablet,delayed release (Adult Low Dose Aspirin) 81 mg PO DAILY heart 10/07/24 clopidogrel 75 mg tablet 75 mg PO DAILY heart 10/07/24 ezetimibe 10 mg tablet 10 mg PO DAILY not sure 10/07/24 ferrous sulfate 325 mg (65 mg iron) tablet (FeroSul) 325 mg PO BID iron 10/07/24 glipizide 10 mg tablet 10 mg PO BID dM 10/07/24 lisinopril 5 mg tablet 2.5 mg PO DAILY bp 10/07/24 metformin 500 mg tablet 500 mg PO DAILY diabetes 10/07/24 metoprolol tartrate 25 mg tablet 25 mg PO DAILY bp 10/07/24 multivitamin-ferrous fumarate-folic acid 18 mg-400 mcg tablet (Centrum Complete) 1 tab PO DAILY vitamin 10/07/24 omeprazole 20 mg capsule,delayed release 20 mg PO DAILY gerd 10/07/24 vitamin A-vitamin C-vit E-min tablet (Vision tablet) 1 tab PO BID eyes 10/07/24 tamsulosin 0.4 mg capsule (Flomax) 0.4 mg PO DAILY #60 caps 10/08/24 Physical Exam Narrative GENERAL: Patient in no apparent distress HEENT: Atraumatic; normocephalic EYES; Anicteric, Normal Conjunctiva NECK; supple, normal thyroid, RESPIRATORY: Diminished to auscultation CARDIOVASCULAR: Regular S1 S2, GI: soft, normoactive bowel sounds, : No Renal angle tenderness; EXTREMITIES: No edema, no clubbing, MUSCULOSKELETAL: no muscle wasting NEURO: Awake; no lateralizing signs. SKIN: No Rash PSYCH; Flat affect Weight / BMI Weight Weight: 73.482 kg Body Mass Index (BMI) 23.9 ABG / Lab / Microbiology Data 10/08/24 05:49 10/08/24 05:49 Laboratory: Laboratory Results - last 24 hr 10/08/24 05:49: WBC 5.8, RBC 3.56 L, Hgb 10.9 L, Hct 32.8 L, MCV 92.1, MCH 30.6, MCHC 33.2, RDW Std Deviation 42.4, RDW Coeff of Daeline 12.4, Plt Count 147 L, MPV 11.1, Immature Gran % (Auto) 0.300, Neut % (Auto) 68.9, Lymph % (Auto) 16.9 L, M jhonny % (Auto) 11.5 H, Eos % (Auto) 1.9, Baso % (Auto) 0.5, Absolute Neuts (auto) 4.0, Absolute Lymphs (auto) 0.98, Nucleated RBC % 0, Sodium 142, Potassium 3.7, Chloride 107, Carbon Dioxide 19.2 L, Anion Gap 16 H, BUN 28 H, Creatinine 1.20, Estim Creat Clear Calc 49.10 L, Est GFR (MDRD) Non-Af 61, BUN/Creatinine Ratio 23.0 H, Glucose 100 H, Calcium 8.4 Microbiology: Microbiology 10/08/24 04:44 Mucosa - Nose SARS-CoV-2, Influenza & RSV (PCR) - Final 10/05/24 13:28 Urine, Catheterized Urine Culture - Final Culture exhibits no growth. 10/05/24 15:30 Mucosa - Nose SARS-CoV-2, Influenza & RSV (PCR) - Final 10/05/24 13:28 Mucosa - Nose SARS-CoV-2, Influenza & RSV (PCR) - Final D/C Instructions Discharge Diet: No restrictions Discharge Activity: Return to Normal Activity Call your doctor if you observe: Fever of 101 or Higher Additional Dressing/Incision Instructions: You have a urinary stent and need to follow up with urology to have it addressed. DC O2, CPAP, BIPAP Needs Home O2 Discharge instructions: No Please Follow Up With: Judah Null MD When: Call [phone] for an appointment Meaningful Use Info Meaningful Use Meaningful Use Diagnoses (Choose all that apply): None applicable Ischemic Stroke Statin Dosing Therapy Reference: STATIN DOSE THERAPY REFERENCE: * Patients > 75 years receive moderate or high dose statin therapy. * Patients 75 years or YOUNGER should receive HIGH intensity statin dose unless contraindicated. You will be required to document reason for non-treatment if statin daily dose does not meet guidelines. HIGH DOSE STATIN THERAPY DAILY Atorvastatin > than or = to 40 mg Rosuvastatin > than or = to 20 mg Amlodipine + Atorvastatin > than or = to 2.5/40 mg Ezetimibe + Simvastatin 10/80 mg Simvastatin 80mg Discharge Plan Admission Admit Date/Time: 10/05/24 16:25 Attending Provider: Akira Adams Primary Care Provider: Emily Campbell Consulting Providers: Judah Null; Jeremie Bhatt Discharge Orders/Prescriptions Prescriptions: Continued ketorolac 10 mg tablet 10 mg PO Q8H PRN (Reason: pain) Qty: 10 0RF Rx Instructions: maximum total duration of 5 days from all oral, intranasal, or parenteral formulations ondansetron 4 mg tablet,disintegrating 4 mg PO Q6H PRN (Reason: nausea and vomiting) Qty: 20 0RF oxycodone-acetaminophen [Endocet] 5-325 mg tablet 1 tab PO Q6H PRN (Reason: pain) 3 Days Qty: 12 0RF ezetimibe 10 mg tablet 10 mg PO DAILY lisinopril 5 mg tablet 2.5 mg PO DAILY metformin 500 mg tablet 500 mg PO DAILY metoprolol tartrate 25 mg tablet 25 mg PO DAILY Patient Comments: [NO ORIGINAL SIG] omeprazole 20 mg capsule,delayed release(DR/EC) 20 mg PO DAILY amlodipine 10 mg tablet 10 mg PO DAILY Centrum Complete 18-400 mg-mcg tablet 1 tab PO DAILY aspirin [Adult Low Dose Aspirin] 81 mg tablet,delayed release (DR/EC) 81 mg PO DAILY clopidogrel 75 mg tablet 75 mg PO DAILY ferrous sulfate [FeroSul] 325 mg (65 mg iron) tablet 325 mg PO BID Patient Comments: [NO ORIGINAL SIG] glipizide 10 mg tablet 10 mg PO BID Vision Tablet 1 tab PO BID acetaminophen [Acetaminophen Extra Strength] 500 mg tablet 1,000 mg PO Q6H PRN (Reason: pain) tamsulosin [Flomax] 0.4 mg capsule 0.4 mg PO DAILY Qty: 60 0RF Referrals / Follow Up: Emily Campbell NP-C [Primary Care Provider] - Within 1 Week Disposition Disposition (needs filled in before D/C Order can be placed): Home Health Service Charges/Coding Visit Charges Inpatient E&M: 93228 Disch Hosp >30min
--- NOTE | 2024-10-08 13:12 | CASEMGMT ---
Discharge Planning A list of?HH providers including quality and resource use data and consistent with the patient's preferred geographic region, medical needs, and insurance network was created in [employer] Guide.? This list was provided to the pt. Juliana Carlton, Discharge Planning Asst.
--- NOTE | 2024-10-08 13:25 | CASEMGMT ---
Discharge Planning HH referrals sent to [facility], [facility], [facility], [facility], and [facility]. Juliana Carlton DC Planning Asst.
--- NOTE | 2024-10-08 14:07 | CASEMGMT ---
Addendum entered by Rosaura Rojas 10/08/24 14:41: SW checked back with patient and his first choice is [facility] and second choice would be [facility]. SW let patient know SW will send a referral to [facility]. SW did let patient know he will be at [facility] at least through the weekend as his insurance will need to approve once we have an accepting facility. Patient verbalized understanding. SW sent a referral to [facility]. OT will need to evaluate patient also. Rosaura FRANK Original Note: Per RN CM patient is now interested in going to a [facility] facility at discharge. SW met with patient. Introduced self and role at [facility]. SW provided patient with a list of [facility] facility providers including quality and resource use data and consistent with patient?s preferred geographic region, medical needs, and insurance network were provided from the [employer] Guide. SW explained to patient he needs to pick 3-4 places he would be okay with and SW will take care of contacting the facility to check on availability. Patient said he will review the list. Rosaura FRANK
--- NOTE | 2024-10-08 15:12 | CASEMGMT ---
[facility] is not able to take patient as they are full. SW sent a referral to [facility] via [facility]. Rosaura Rojas INSTRUMENTATION MANAGER MONIKA
--- NOTE | 2024-10-08 15:47 | CASEMGMT ---
SW went to patient's room to let him know that [facility] is full so SW sent a referral to [facility]. Patient told SW he changed his mind and wants to go home and have someone come to his home to do therapy. SW told patient SW will notify RN SPENCER. SW notified RN CM. LARA will also notify [facility]. Rosaura FRANK
--- NOTE | 2024-10-08 15:57 | CASEMGMT ---
Addendum entered by Mara Chiang 10/08/24 16:33: RN SPENCER into pt room, pt is aware that Anushka will be out to see him on Friday. Pt still declines need for walker. Pt states Thierry is going to stay with him at his home. Pt denies further needs. Nurse aware pt can dc. Original Note: SW made aware that pt now wants to go home [facility], they can accept pt for SOC on Friday.
[2024-10-08] MEDS: Tamsulosin HCl 0.4 MG Capsule PO (16:34)
== END 2024-10-08 17:25 | disposition home health service (06) | DRG 659 ==
LOC: ED 15:45 → MS2 18:45
PROVIDERS: Urology; Admitting Provider Hospitalist; Emergency Provider Emergency Medicine; PCP Nurse Practitioner Family; Visit Provider Internal Medicine
PROC: 0T768DZ Dilation of Right Ureter with Intraluminal Device, Via Natural or Artificial Opening Endoscopic (ICD-10-PCS; CPT 52332; principal; 2024-10-06 15:50)
DX: N10 Acute pyelonephritis (principal); G93.41 Metabolic encephalopathy; I24.89 Other forms of acute ischemic heart disease; I25.76 Atherosclerosis of bypass graft of coronary artery of transplanted heart with angina pectoris; D63.8 Anemia in other chronic diseases classified elsewhere; N13.2 Hydronephrosis with renal and ureteral calculous obstruction; I10 Essential (primary) hypertension; K76.0 Fatty (change of) liver, not elsewhere classified; K40.90 Unilateral inguinal hernia, without obstruction or gangrene, not specified as recurrent; I25.10 Atherosclerotic heart disease of native coronary artery without angina pectoris; E78.5 Hyperlipidemia, unspecified; N17.9 Acute kidney failure, unspecified; I25.84 Coronary atherosclerosis due to calcified coronary lesion; K57.30 Diverticulosis of large intestine without perforation or abscess without bleeding; K80.20 Calculus of gallbladder without cholecystitis without obstruction; Z79.82 Long term (current) use of aspirin; Z79.84 Long term (current) use of oral hypoglycemic drugs; Z79.899 Other long term (current) drug therapy; N39.0 Urinary tract infection, site not specified; Z95.1 Presence of aortocoronary bypass graft; N28.1 Cyst of kidney, acquired
CPT/HCPCS: 36415; 51702; 70496; 70498; 71045; 74176; 74177; 76000; 80048; 80053; 80307; 81001; 83605; 83690; 83735; 84100; 84484; 85025; 85027; 85610; 85730; 87040; 87086; 87631; 93005; 94640; 94668; 96361; 96374; 96375; 97110; 97162; 99285; Q9967; A4216; C2617; J2405

== ENCOUNTER 2024-10-21 10:59 | Emergency (ER) | payer MEDICARE, SELFPAY ==
[2024-10-21 11:00] VITALS: BP 154/67; PULSE 75; RESP 15; TEMP 36.4; O2SAT 94; BMI 23.3
--- NOTE | 2024-10-21 11:04 | EX.ED.DYSGE1 ---
HPI History of Present Illness Chief Complaint: Complaint [facility] Medical History (Updated 10/21/24 @ 12:[address] 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 Home Medications ?Medication ?Instructions ?Recorded ?Last Taken ?Type ondansetron 4 mg disintegrating 4 mg PO Q6H PRN nausea and 10/02/24 Unknown Rx tablet vomiting #20 tabs acetaminophen 500 mg tablet 1,000 mg PO Q6H PRN pain 10/07/24 Unknown History (Acetaminophen Extra Strength) amlodipine 10 mg tablet 10 mg PO DAILY bp 10/07/24 Unknown History aspirin 81 mg tablet,delayed 81 mg PO DAILY heart 10/07/24 Unknown History release (Adult Low Dose Aspirin) clopidogrel 75 mg tablet 75 mg PO DAILY heart 10/07/24 Unknown History ezetimibe 10 mg tablet 10 mg PO DAILY not sure 10/07/24 Unknown History ferrous sulfate 325 mg (65 mg 325 mg PO BID iron 10/07/24 Unknown History iron) tablet (FeroSul) glipizide 10 mg tablet 10 mg PO BID dM 10/07/24 Unknown History lisinopril 5 mg tablet 2.5 mg PO DAILY bp 10/07/24 Unknown History metformin 500 mg tablet 500 mg PO DAILY diabetes 10/07/24 Unknown History metoprolol tartrate 25 mg tablet 25 mg PO DAILY bp 10/07/24 Unknown History multivitamin-ferrous 1 tab PO DAILY vitamin 10/07/24 Unknown History fumarate-folic acid 18 mg-400 mcg tablet (Centrum Complete) omeprazole 20 mg capsule,delayed 20 mg PO DAILY gerd 10/07/24 Unknown History release vitamin A-vitamin C-vit E-min 1 tab PO BID eyes 10/07/24 Unknown History tablet (Vision tablet) tamsulosin 0.4 mg capsule (Flomax) 0.4 mg PO DAILY #60 caps 10/08/24 Unknown Rx naproxen sodium 220 mg capsule 220 mg PO Q8H 10/13/24 Unknown History (Aleve) ciprofloxacin HCl 500 mg tablet 500 mg PO BID #14 TABLETS 10/21/24 Unknown Rx Allergy/AdvReac Type Severity Reaction Status Date / Time No Known Allergies Allergy Verified 10/13/24 15:05 Surgical History Status post ORIF of fracture of ankle S/P quadruple vessel bypass Social History (Updated 10/21/24 @ 11:09 by Torie Hartman) household members: none current occupational status: retired Smoking Status: Never smoker alcohol intake: never EXAM Physical Exam Const Vital Signs: 10/21/24 11:00 10/21/24 11:07 10/21/24 12:32 Temperature 97.5 F L 97.5 F L Temperature Source Oral Oral Pulse Rate 75 75 80 Respiratory Rate 15 15 18 Blood Pressure 154/67 H 154/67 H 149/89 H Blood Pressure Mean 96 96 109 Pulse Ox 94 94 96 Oxygen Delivery Method Room Air Room Air MDM MDM MDM Narrative Medical decision making narrative: HISTORY OF PRESENT ILLNESS: 78-year-old male history of hyperlipidemia, hypertension, anemia, CAD status post CABG, nephrolithiasis presents with dysuria. Notes history of kidney stones and states giving. Notes it toth when urinates. Denies decreased urination or urinary retention to me. States he is urinating more than usual. REVIEW OF SYSTEMS: Pertinent positives: dysuria Pertinent negatives: Flank pain, vomiting PHYSICAL EXAM: Nursing triage notes reviewed, Vital signs reviewed Constitutional: please see mdm HENT: MMM Eyes: Pupils equal round and reactive to light, Extraocular muscles intact Neck: No stridor, no JVD, full neck ROM Lungs: Clear to auscultation, No wheezing or rales. No increased work of breathing, no conversational dyspnea, no accessory muscle use, no nasal flaring. No respiratory distress noted Heart: Regular rate and rhythm, No murmurs, No rubs and No gallops, 2+ distal pulses (radial, femoral, posterior tibial) in all extremities Abdomen: Soft, there is no tenderness, rigidity, rebound or guarding, no obvious peritoneal signs, no palpable pulsatile abdominal masses, no auscultated abdominal bruit : No CVAT Extremities: No edema Neuro: No new focal neurological deficits, cranial nerves II through XII intact, 5/5 strength in all present extremities. Intact sensation to light touch in all present extremities, 2+ reflexes bilateral patella tendons. Skin: No rash or lesions noted MEDICAL DECISION MAKING: Chief Complaint: External records reviewed: Reviewed prior urology visit in which the patient was evaluated for hydronephrosis, nephrolithiasis, altered mental status and fever by our urologist Dr. Tennille. Factors affecting care: urolithiasis, otherwise as per HPI Social determinants of health: none History obtained from others: none Consults: none [facility] Narrative: Patient was initially hemodynamically stable, afebrile and nontoxic-appearing. Exam without CVA tenderness. Abdomen soft. I considered the following differential diagnosis: Nephrolithiasis, pyelonephritis, UTI I obtained a broad lab and imaging workup to further elucidate etiology of the patient's complaints ALL IMAGES (IF OBTAINED) HAVE BEEN PERSONALLY REVIEWED AND INTERPRETED BY MYSELF. CBC without leukocytosis, severe anemia (noted hemoglobin improved from baseline), no thrombocytopenia. BMP with baseline CKD, no significant electrode abnormality Urinalysis with inflammation and blood (all this is not completely consistent with infection patient CT scan was concerning for stranding which could indicate infection we will give prophylactic antibiotics and send urine for culture CT scan of the abdomen pelvis shows no evidence of obstructive uropathy, hydronephrosis. Reviewed the patient's prior cultures which showed no growth. Will give ciprofloxacin for antimicrobial prophylaxis orally. Will give close urology follow-up. Strict return precautions were discussed including vomiting, loss of conscious, abdominal pain, significant flank pain or decreased urination. The patient and/or family, caregivers express understanding. The patient and/or family, caregivers agrees with the plan. Shared decision making: I will have a discussion with the patient and or visitors regarding risk/benefits of further testing or admission. They will be made aware of of the risk/benefits inherent in this decision they will be given the opportunity to voice understanding. Total critical care time today provided was at least 0 minutes. This excludes separately billable procedures. Critical care time (if documented) is secondary to the patient having high probability of clinically significant/life threatening deterioration in the patient's condition which required my urgent intervention. Impression: 1. Dysuria 2. History of nephrolithiasis 3. Status post ureteral stent Dispo: Discharge home This note was generated with [employer] dictation software. It may contain incorrect words, spelling, and punctuation that were not noted in review of the chart prior to signing. Lab Data Labs: Laboratory Results - last 24 hr 10/21/24 11:15 WBC 8.1 RBC 3.95 L Hgb 12.2 L Hct 37.2 L MCV 94.2 H MCH 30.9 MCHC 32.8 RDW Std Deviation 44.2 H RDW Coeff of Adeline 12.9 Plt Count 356 MPV 9.5 Immature Gran % (Auto) 0.600 Neut % (Auto) 73.5 H Lymph % (Auto) 15.0 L [place] % (Auto) 7.7 Eos % (Auto) 2.6 Baso % (Auto) 0.6 Absolute Neuts (auto) 5.9 Absolute Lymphs (auto) 1.21 Nucleated RBC % 0 Sodium 138 Potassium 4.8 Chloride 102 Carbon Dioxide 22.9 Anion Gap 13 BUN 35 H Creatinine 1.49 H Estim Creat Clear Calc 39.54 L Est GFR (MDRD) Non-Af 47 L BUN/Creatinine Ratio 23.4 H Glucose 328 H Calcium 9.3 Urine Color Yellow Urine Clarity Clear Urine pH 6.0 Ur Specific Fosters 1.010 Urine Protein 30 H Urine Glucose (UA) 1000 H Urine Ketones Negative Urine Occult Blood 250 H Urine Nitrite Negative Urine Bilirubin Negative Urine Urobilinogen Normal Ur Leukocyte Esterase 100 H Urine RBC 10-25 SEEN Urine WBC 0-5 SEEN Ur Squamous Epith Cells 0 SEEN Urine Bacteria 0 SEEN Urine Mucus 0 SEEN Radiography Diagnostic Testing: Clinical Impression(s) from Imaging Studies Abdomen/Pelvis CT 10/21/24 11:33 IMPRESSION: 1. Interval placement of a RIGHT nephroureteral stent. No hydronephrosis or ureteral calculus identified. Trace to mild stranding along the mid to distal RIGHT ureter is similar to perhaps minimally increased from prior and could be reactive or may indicate ascending urinary tract infection. Correlate with urinalysis. 2. Additional description as above. Reading Location: [facility] Discharge Plan Triage Chief Complaint: Complaint ED Provider: Khoa Moran Dx/Rx/DC Orders Clinical Impression: Acute UTI Instructions: ED Urinary Tract Infections in Men Prescriptions: New ciprofloxacin HCl 500 mg tablet 500 mg PO BID Qty: 14 0RF No Action naproxen sodium [Aleve] 220 mg capsule 220 mg PO Q8H ondansetron 4 mg tablet,disintegrating 4 mg PO Q6H PRN (Reason: nausea and vomiting) Qty: 20 0RF ezetimibe 10 mg tablet 10 mg PO DAILY lisinopril 5 mg tablet 2.5 mg PO DAILY metformin 500 mg tablet 500 mg PO DAILY metoprolol tartrate 25 mg tablet 25 mg PO DAILY Patient Comments: [NO ORIGINAL SIG] omeprazole 20 mg capsule,delayed release(DR/EC) 20 mg PO DAILY amlodipine 10 mg tablet 10 mg PO DAILY Centrum Complete 18-400 mg-mcg tablet 1 tab PO DAILY aspirin [Adult Low Dose Aspirin] 81 mg tablet,delayed release (DR/EC) 81 mg PO DAILY clopidogrel 75 mg tablet 75 mg PO DAILY ferrous sulfate [FeroSul] 325 mg (65 mg iron) tablet 325 mg PO BID Patient Comments: [NO ORIGINAL SIG] glipizide 10 mg tablet 10 mg PO BID Vision Tablet 1 tab PO BID acetaminophen [Acetaminophen Extra Strength] 500 mg tablet 1,000 mg PO Q6H PRN (Reason: pain) tamsulosin [Flomax] 0.4 mg capsule 0.4 mg PO DAILY Qty: 60 0RF Primary Care Provider: Emily Campbell Referrals: Judah Null MD [Med Staff - Active Staff] - Activity Restrictions/Additional Instructions: Thank you for trusting us with your care today! Your urinalysis showed some signs of inflammation. Will give antibiotics. Please antibiotics until course is complete. Please take Tylenol (2 pills, 650 mg), ibuprofen (2 pills, 400 mg) every 6 hours as needed for pain and fever control. Please return to the emergency department if your symptoms change or worsen. Please follow with your primary care physician for further outpatient evaluation and management. Print Language: German Disposition Disposition: Home, Self Care Discharge Date/Time: 10/21/24 12:34
[2024-10-21 11:07] VITALS: BP 154/67; PULSE 75; RESP 15; TEMP 36.4; O2SAT 94
[2024-10-21] MEDS: Ketorolac 15 MG/ML Vial IV (11:20)
[2024-10-21 11:26] LABS: Bacteria 0 SEEN /hpf (None Seen); Mucous, Urine 0 SEEN /hpf (<or=2+); Squamous Epithelial Cells - UA 0 SEEN /hpf (0-5)
[2024-10-21] MEDS: 0.9% Normal Saline (500mL Bag) 500 ML 999 ML IV (11:30)
--- NOTE | 2024-10-21 11:33 | CT_ITS ---
PROCEDURE: ABDOMEN/PELVIS WITHOUT CONT (CTABDPEL), 10/21/2024 REASON FOR EXAM: KIDNEY STONE TECHNIQUE: CT abdomen and pelvis was performed without IV contrast. Multiplanar reformats were generated. RADIATION DOSE SUMMARY: CTDlvol: 7.95 mGy DLP: 524.53 mGycm One or more dose reduction techniques were used (e.g., Automated exposure control, adjustment of the mA and/or kV according to patient size, use of iterative reconstruction technique). COMPARISON: 10/05/2024 FINDINGS: Note that evaluation of the abdominopelvic viscera, vasculature, and remaining soft tissues is limited in the absence of IV contrast. Lung bases: Coronary atherosclerosis and/or stents post sternotomy. Small hiatal hernia containing mostly fat. Liver: Unremarkable. Spleen: Unremarkable. Gallbladder: Cholelithiasis. Pancreas: Unremarkable. Adrenals: Unremarkable. Kidneys: Interval placement of a RIGHT nephroureteral stent. No hydronephrosis or definite ureteral calculus. Small bilateral renal cysts better depicted previously. Trace to mild, similar stranding along the mid to distal RIGHT ureter, similar to minimally perhaps minimally increased from prior. Bowel: Small periampullary duodenal diverticulum. Diverticulosis.. Normal caliber appendix. Lymph nodes: Unremarkable. Vasculature: Atherosclerosis in a distribution suggestive of chronic renal disease and/or diabetes. Peritoneum: Unremarkable. Bladder: Underdistended and suboptimally evaluated. Nephroureteral stent as above. Small portion of the RIGHT anterolateral bladder again extends into a RIGHT inguinal hernia otherwise described below. Reproductive Organs: Unremarkable. Body Wall: Operative changes near the umbilicus. Small to moderate RIGHT inguinal hernia containing a small portion of the RIGHT anterolateral bladder as above as well as a small amount of fluid, similar to slightly decreased from prior. Bones: Multilevel spondylosis. Demineralization. 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 Trace lumbar levoscoliosis degenerative changes of the SI joints including ankylosis anteriorly on the LEFT. CT/Abdomen/Pelvis without Cont IMPRESSION: 1. Interval placement of a RIGHT nephroureteral stent. No hydronephrosis or ur eteral calculus identified. Trace to mild stranding along the mid to distal RIGHT ureter is similar to perhaps minimally increased from prior and could be reactive or may indicate ascending urinary tract infection. Correlate with urinalysis. 2. Additional description as above. Reading Location: [id number]
[2024-10-21 11:35] LABS: Color, Urine Yellow (Yellow); Glucose, Dipstick 1000 mg/dl (Normal); Ketone-Dipstick Negative (Negative); Leukocyte Esterase-Dipstick 100 /ul (Negative); Nitrite-Dipstick Negative (Negative); Occult Blood-Urine 250 /ul (Negative); Protein-Dipstick 30 mg/dl (Negative); Urine Bilirubin Dipstick Negative (Negative); Urine Clarity Clear (Clear); Urine Urobilinogen Normal (Normal)
[2024-10-21 11:43] LABS: Absolute Lymphocyte Count 1.21 X10^3/uL (0.83-4.51); Absolute Neutrophil Count 5.9 X10^3/uL (2.0-7.7); Basophil# 0.05 X10^3/uL; Basophil% 0.6 % (0-1); Eosinophil# 0.21 X10^3/uL; Eosinophils% 2.6 % (0-5); Hematocrit 37.2 % (40-54); Hemoglobin 12.2 g/dL (13.0-16.5); Lymphocyte # 1.21 X10^3/ul (0.83-4.51); Mean Corp Hgb Conc 32.8 g/dL (32-36); Mean Corpuscular Hgb 30.9 pg (27.0-32.0); Mean Corpuscular Volume 94.2 fL (80-94); Mean Platelet Vol. 9.5 fl (6.2-12.0); Monocyte# 0.62 X10^3/uL; Monocyte% 7.7 % (0-10); NRBC Flagged by Analyzer 0 % (0-5); Neutrophil # 5.94 X10^3/uL (2.7-7.7); Neutrophil % 73.5 % (47-70); Platelet Count 356 K/mm3 (150-450); RBC Distribution Width CV 12.9 % (11.6-14.6); RBC Distribution Width SD 44.2 fl (35.1-43.9); Red Blood Count 3.95 M/mm3 (4.6-6.2); White Blood Count 8.1 K/mm3 (4.4-11.0)
[2024-10-21 11:50] LABS: Red Blood Cells-Urine 10-25 SEEN /hpf (0-5); White Blood Cells 0-5 SEEN /hpf (0-5)
[2024-10-21 11:51] LABS: Anion Gap 13 (5-15); BUN 35 mg/dL (4-19); BUN/Creat Ratio 23.4 RATIO (10-20); Calcium,Total 9.3 mg/dL (7.6-11.0); Carbon Dioxide 22.9 mmol/L (21.0-32.0); Chloride 102 mmol/L (98-108); Creatinine, Serum 1.49 mg/dL (0.70-1.20); EST Glomerular Filtration Rate 47 (>60); Estimated Creatinine Clearance 39.54 ml/min (50-250); Glucose 328 mg/dL (70-99); Potassium 4.8 mmol/L (3.3-5.1); Sodium Level 138 mmol/L (133-145)
[2024-10-21] MEDS: Ciprofloxacin 500 MG Tablet PO (12:17)
[2024-10-21 12:32] VITALS: BP 149/89; PULSE 80; RESP 18; O2SAT 96
== END 2024-10-21 12:34 | disposition home or self-care (01) ==
PROVIDERS: Emergency Provider Emergency Medicine; PCP Nurse Practitioner Family; Visit Provider Emergency Medicine
DX: N39.0 Urinary tract infection, site not specified (principal); I25.10 Atherosclerotic heart disease of native coronary artery without angina pectoris; I10 Essential (primary) hypertension; E78.00 Pure hypercholesterolemia, unspecified; Z95.1 Presence of aortocoronary bypass graft; Z87.442 Personal history of urinary calculi
CPT/HCPCS: 74176; 80048; 81001; 85025; 96361; 96374; 99285

== ENCOUNTER → 2024-11-01 | Outpatient (CLI) | payer MEDICARE, SELFPAY ==
--- NOTE | 2024-11-01 13:48 | RAD_ITS ---
EXAM: XR Abdomen, 1 View CLINICAL INDICATION: CALCULUS OF KIDNEY TECHNIQUE: Frontal supine view of the abdomen/pelvis. COMPARISON: No relevant prior studies available. FINDINGS: GASTROINTESTINAL TRACT: Unremarkable. No dilation. BONES/JOINTS: Unremarkable. No acute fracture. OTHER FINDINGS: Indwelling right double-J ureteral stent. Possible calculus in the right mid ureter measuring up to 4 mm. RAD/Abdomen Single View IMPRESSION: Indwelling right double-J ureteral stent. Possible calculus in the right mid u reter measuring up to 4 mm. Reading Location: [facility]
== END | disposition home or self-care (01) ==
LOC: RAD 13:44
PROVIDERS: PCP Nurse Practitioner Family; Referring Provider Urology; Visit Provider Urology
DX: N20.0 Calculus of kidney (principal)
CPT/HCPCS: 74018

== ENCOUNTER 2024-11-10 11:35 | Day surgery (SDC) | payer MEDICARE, SELFPAY ==
--- NOTE | 2024-10-29 13:57 | PAT.ANESEVAL ---
Pre-Assessment Diagnosis/Proposed Procedure Planned Operative Procedure(s): ESWL AND CYSTO WITH RETROGRADES Anesthesia History Anesthesia History - separations scientist: Anesthesia History - separations scientist Hx Hospitalization Yes: 10/2024 BLADDER 10/28/24 14:52 INFECTION Any Problems With Anesthesia No 10/28/24 14:52 Cholinesterase deficiency No 10/28/24 14:52 You/Your Family Experience No 10/28/24 14:52 fever (hyperthermia) with Relationship Recent Exposure to Contagious Disease Does patient have nerve No 10/28/24 14:52 stimulator Patient instructed to have device shut off --Does patient have Pacemaker or ICD? When Was Last Pacemaker Check QUESTION #4 FULL TEXT: You/Your Family Experience fever (hyperthermia) with Anesthesia Last Oral Intake Last Oral intake: Last Oral Intake NPO since Meds taken in AM with sips of water? Meds patient instructed to take am of surgery PONV PONV - separations scientist: PONV - separations scientist Female No 10/28/24 14:52 HX of Motion Sickness No 10/28/24 14:52 HX of N/V After Surgery No 10/28/24 14:52 Non-Smoker Yes 10/28/24 14:52 Duration of Surgery greater Yes 10/28/24 14:52 than 60 minutes Number of Risk Factors 2 10/28/24 14:52 PONV Score Moderate Risk 10/28/24 14:52 Height & Weight Height & Weight: Anesthesia: Height & Weight Height 5 ft 9 in 10/06/24 10:59 Respiratory Assessment Respiratory Assessment - separations scientist: Respiratory Tract Infection Hx - separations scientist Hx Respiratory Tract Infection No 10/28/24 14:52 STOP Sleep Apnea STOP Sleep Apnea - separations scientist: STOP Sleep Apnea - separations scientist Hx Hypertension Yes: CONTROLLED WITH MED 10/28/24 14:52 Hx Sleep Apnea No 10/28/24 14:52 CPAP BIPAP Do you snore loudly (louder No 10/28/24 14:52 than talking or can be heard Do you often feel tired/ Yes 10/28/24 14:52 fatigued/ sleepy during daytime? Has anyone observed you stop No 10/28/24 14:52 breathing during sleep? STOP Results Positive 10/28/24 14:52 QUESTION #5 FULL TEXT : Do you snore loudly (louder than talking or can be heard through closed doors)? 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 Specify any problems Hx of Preganancy in last 3 N/A 10/28/24 14:52 Months Nurse Filling Out Transfusion DSCHRIBER 10/28/24 14:52 & Questions: Date: 10/28/24 10/28/24 14:52 Time: 14:54 10/28/24 14:52 Patient unable to answer at this time (ie. confused, unrespo /Reproduction History /Reproductive History - separations scientist: /Reproductive Hx- separations scientist Hx Now No 10/28/24 14:52 Gestational Age (in weeks): EDC: Hx Hx Para Hx Section SAB No 10/28/24 14:52 PFSH Medical History (Updated 10/29/24 @ 00:01 by Background Daemon) Loss of hearing Wears glasses Depression Alcohol use Diabetes Prostate disease Back pain Injury of head and neck Essential tremor Loss of consciousness History of ulceration Gastric reflux Non-smoker Shortness of breath on exertion Leg cramps History of edema History of echocardiogram History of stress test Cardiology follow-up encounter High cholesterol Heart disease Anemia Hypertension Hyperlipidemia Home Medications ?Medication ?Instructions ?Recorded ?Last Taken ?Type ondansetron 4 mg disintegrating 4 mg PO Q6H PRN nausea and 10/02/24 Unknown Rx tablet vomiting #20 tabs acetaminophen 500 mg tablet 1,000 mg PO Q6H PRN pain 10/07/24 Unknown History (Acetaminophen Extra Strength) aspirin 81 mg tablet,delayed 81 mg PO DAILY heart 10/07/24 10/28/24 History release (Adult Low Dose Aspirin) ezetimibe 10 mg tablet 10 mg PO DAILY not sure 10/07/24 Unknown History ferrous sulfate 325 mg (65 mg 325 mg PO BID iron 10/07/24 Unknown History iron) tablet (FeroSul) metformin 500 mg tablet 1,000 mg PO DAILY diabetes 10/07/24 Unknown History metoprolol tartrate 25 mg tablet 25 mg PO DAILY bp 10/07/24 Unknown History multivitamin-ferrous 1 tab PO DAILY vitamin 10/07/24 Unknown History fumarate-folic acid 18 mg-400 mcg tablet (Centrum Complete) omeprazole 20 mg capsule,delayed 20 mg PO DAILY gerd 10/07/24 Unknown History release vitamin A-vitamin C-vit E-min 1 tab PO BID eyes 10/07/24 Unknown History tablet (Vision tablet) atorvastatin 80 mg tablet 80 mg PO DAILY 10/28/24 Unknown History glimepiride 4 mg tablet 4 mg PO BID 10/28/24 Unknown History latanoprost 0.005 % eye drops 1 drp EACH EYE DAILY 10/28/24 Unknown History losartan 25 mg tablet 12.5 mg PO DAILY 10/28/24 Unknown History metformin 500 mg tablet 500 mg PO QHS 10/28/24 Unknown History tamsulosin 0.4 mg capsule (Flomax) 0.4 mg PO QHS 10/28/24 Unknown History Allergy/AdvReac Type Severity Reaction Status Date / Time No Known Allergies Allergy Verified 10/28/24 12:01 Surgical History (Updated 10/29/24 @ 09:28 by Suzie Noyola) History of coronary artery stent placement History of cardiac catheterization Hx of right cataract extraction Hx of left cataract extraction Hx of colonoscopy Hx of umbilical hernia repair Hx of cystoscopy Status post ORIF of fracture of ankle S/P quadruple vessel bypass Social History (Updated 10/21/24 @ 11:09 by Torie Hartman) household members: none current occupational status: retired Smoking Status: Never smoker alcohol intake: never Audit: Pertinent Findings Pertinent Findings EKG Perinent findings: 10/05/2024 normal sinus rhythm [address] and T wave abnormality Pulmonary function results/spirometer pertinent findings: Chest x-ray 10/05/2024. No acute abnormality is seen. Recommendation Anesthesia Recommendation Anesthesia recommendation: OPTIMIZED for anesthesia
[2024-11-10] VITALS (7 sets, daily range): BP systolic 147–158; BP diastolic 46–81; PULSE 65–81; RESP 14–16; TEMP 36.3–36.6; O2SAT 96–98; BMI 22.4
--- NOTE | 2024-11-10 11:40 | RAD_ITS ---
PROCEDURE: ABDOMEN SINGLE VIEW 11/10/2024 REASON FOR EXAM: PRE OP TECHNIQUE: Single view abdomen. COMPARISON: Abdominal radiograph 11/01/2024. FINDINGS: Bowel gas: Bowel gas pattern is normal. No evidence of bowel obstruction. Calcifications: No calcific density visualized in the expected region of the right kidney or ureter. Bones: There are degenerative changes of the spine. Other: Stable right double-J ureteral stent. RAD/Abdomen Single View IMPRESSION: No calcific density visualized in the expected region of the right kidney or ur eter. Reading Location: [facility]
--- NOTE | 2024-11-10 12:18 | PCM.PRE.AN2 ---
ASA Classification* ASA Classification ASA Classification: 2 Assessment & Plan Anesthesia* Anesthesia Assessment Anesthesia Assessment: Discussed sedation and/or anesthesia options, risks, benefits, and alternatives with patient/parents/legal guardian/POA. Questions invited. The patient/parents/legal guardian/POA seems to understand and agrees to proceed with anesthesia plan. Reviewed the physical assessment, medical history, allergy history and patient home medications list prior to surgery/procedure/anesthetic and documented any changes. Performed airway and anesthesia risk assessments. Anesthesia Type Anesthesia Type: General Anesthesia Focused Assessment* Airway Assessment Mouth opens: >3 cm Mallampati Score: II Focused Labs Anesthesia Preop lab: CBC WBC 8.1 K/mm3 (4.4-11.0) 10/21/24 11:15 10/21/24 RBC 3.95 M/mm3 (4.6-6.2) L 10/21/24 11:15 10/21/24 Hgb 12.2 g/dL (13.0-16.5) L 10/21/24 11:15 10/21/24 Hct 37.2 % (40-54) L 10/21/24 11:15 10/21/24 Plt Count 356 K/mm3 (150-450) 10/21/24 11:15 10/21/24 CHEMISTRY Potassium 4.8 mmol/L (3.3-5.1) 10/21/24 11:15 10/21/24 Sodium 138 mmol/L (133-145) 10/21/24 11:15 10/21/24 Magnesium 1.5 mg/dL (1.5-2.2) 10/07/24 05:59 10/07/24 Phosphorus 3.0 mg/dL (2.7-4.5) 10/07/24 05:59 10/07/24 BUN 35 mg/dL (4-19) H 10/21/24 11:15 10/21/24 Creatinine 1.49 mg/dL (0.70-1.20) H 10/21/24 11:15 10/21/24 Glucose 328 mg/dL (70-99) H 10/21/24 11:15 10/21/24 COAG PT 14.4 SECONDS (11.7-14.9) 10/05/24 13:21 10/05/24 Pre-Assessment Diagnosis/Proposed Procedure Planned Operative Procedure(s): ESWL AND CYSTO WITH RETROGRADES Anesthesia History Anesthesia History - integration analyst: Anesthesia History - integration analyst Hx Hospitalization Yes: 10/2024 [facility] 10/28/24 14:52 INFECTION Any Problems With Anesthesia No 10/28/24 14:52 Cholinesterase deficiency No 10/28/24 14:52 You/Your Family Experience No 10/28/24 14:52 fever (hyperthermia) with Relationship Recent Exposure to Contagious Disease Does patient have nerve No 10/28/24 14:52 stimulator Patient instructed to have device shut off --Does patient have Pacemaker or ICD? When Was Last Pacemaker Check QUESTION #4 FULL TEXT: You/Your Family Experience fever (hyperthermia) with Anesthesia Last Oral Intake Last Oral intake: Last Oral Intake NPO since Meds taken in AM with sips of water? Meds patient instructed to take am of surgery PONV PONV - integration analyst: PONV - integration analyst Female No 10/28/24 14:52 HX of Motion Sickness No 10/28/24 14:52 HX of N/V After Surgery No 10/28/24 14:52 Non-Smoker Yes 10/28/24 14:52 Duration of Surgery greater Yes 10/28/24 14:52 than 60 minutes Number of Risk Factors 2 10/28/24 14:52 PONV Score Moderate Risk 10/28/24 14:52 Height & Weight Height & Weight: Anesthesia: Height & Weight Height 5 ft 9 in 10/21/24 11:00 Respiratory Assessment Respiratory Assessment - integration analyst: Respiratory Tract Infection Hx - integration analyst Hx Respiratory Tract Infection No 10/28/24 14:52 STOP Sleep Apnea STOP Sleep Apnea - integration analyst: STOP Sleep Apnea - integration analyst Hx Hypertension Yes: CONTROLLED WITH MED 10/28/24 14:52 Hx Sleep Apnea No 10/28/24 14:52 CPAP BIPAP Do you snore loudly (louder No 10/28/24 14:52 than talking or can be heard Do you often feel tired/ Yes 10/28/24 14:52 fatigued/ sleepy during daytime? Has anyone observed you stop No 10/28/24 14:52 breathing during sleep? STOP Results Positive 10/28/24 14:52 QUESTION #5 FULL TEXT : Do you snore loudly (louder than talking or can be heard through closed doors)? Tobacco Use History Tobacco Use History - integration analyst: Tobacco Use History - integration analyst Tobacco Use Smoking Status Never smoker 10/28/24 14:52 Hx Tobacco Use No 10/28/24 14:52 Years Smoking Packs Smoked per Day Smoking Cessation Date was within the last 15 years Hx Smoking Cessation Date Hx Smoking Cessation Counseling Hematologic Medial History Hematologic Hx - integration analyst: Hematologic Medical Hx - rn clinical documentation Hx of Blood Transfusion No 10/28/24 14:52 Hx of Transfusion in last 3 No 10/28/24 14:52 Months Date of Last Transfusion (if within last 3 months) Ever experience any problems No 10/28/24 14:52 with transfusion(s)? Specify any problems Hx of Preganancy in last 3 N/A 10/28/24 14:52 Months Nurse Filling Out Transfusion DSCHRIBER 10/28/24 14:52 & Questions: Date: 10/28/24 10/28/24 14:52 Time: 14:54 10/28/24 14:52 Patient unable to answer at this time (ie. confused, unrespo /Reproduction History /Reproductive History - integration analyst: /Reproductive Hx- integration analyst Hx Now No 10/28/24 14:52 Gestational Age (in weeks): EDC: Hx Hx Para Hx Section SAB No 10/28/24 14:52 Active Medications Active Medications: Current Medications Generic Name Dose Route Start Last Admin Trade Name Freq PRN Reason Stop Dose Admin Cefazolin Sodium 2 gm/ N/A 20 mls @ 400 mls/hr 11/10/24 13:45 IV 11/10/24 13:47 PREOP ONE Sodium Chloride 1,000 mls @ 15 mls/hr 11/10/24 11:45 IV .Q48H GABINO PFSH Medical History Loss of hearing Wears glasses Depression Alcohol use Diabetes Prostate disease Back pain Injury of head and neck Essential tremor Loss of consciousness History of ulceration Gastric reflux Non-smoker Shortness of breath on exertion Leg cramps History of edema History of echocardiogram History of stress test Cardiology follow-up encounter High cholesterol Heart disease Anemia Hypertension Hyperlipidemia Home Medications ?Medication ?Instructions ?Recorded ?Last Taken ?Type ondansetron 4 mg disintegrating 4 mg PO Q6H PRN nausea and 10/02/24 Unknown Rx tablet vomiting #20 tabs acetaminophen 500 mg tablet 1,000 mg PO Q6H PRN pain 10/07/24 Unknown History (Acetaminophen Extra Strength) aspirin 81 mg tablet,delayed 81 mg PO DAILY heart 10/07/24 10/28/24 History release (Adult Low Dose Aspirin) ezetimibe 10 mg tablet 10 mg PO DAILY not sure 10/07/24 Unknown History ferrous sulfate 325 mg (65 mg 325 mg PO BID iron 10/07/24 Unknown History iron) tablet (FeroSul) metformin 500 mg tablet 1,000 mg PO DAILY diabetes 10/07/24 Unknown History metoprolol tartrate 25 mg tablet 25 mg PO DAILY bp 10/07/24 Unknown History multivitamin-ferrous 1 tab PO DAILY vitamin 10/07/24 Unknown History fumarate-folic acid 18 mg-400 mcg tablet (Centrum Complete) omeprazole 20 mg capsule,delayed 20 mg PO DAILY gerd 10/07/24 Unknown History release vitamin A-vitamin C-vit E-min 1 tab PO BID eyes 10/07/24 Unknown History tablet (Vision tablet) atorvastatin 80 mg tablet 80 mg PO DAILY 10/28/24 Unknown History glimepiride 4 mg tablet 4 mg PO BID 10/28/24 Unknown History latanoprost 0.005 % eye drops 1 drp EACH EYE DAILY 10/28/24 Unknown History losartan 25 mg tablet 12.5 mg PO DAILY 10/28/24 Unknown History metformin 500 mg tablet 500 mg PO QHS 10/28/24 Unknown History tamsulosin 0.4 mg capsule (Flomax) 0.4 mg PO QHS 10/28/24 Unknown History Allergy/AdvReac Type Severity Reaction Status Date / Time No Known Allergies Allergy Verified 10/28/24 12:01 Surgical History History of coronary artery stent placement History of cardiac catheterization Hx of right cataract extraction Hx of left cataract extraction Hx of colonoscopy Hx of umbilical hernia repair Hx of cystoscopy Status post ORIF of fracture of ankle S/P quadruple vessel bypass Social History household members: none current occupational status: retired Smoking Status: Never smoker alcohol intake: never Review of Systems (Anesthesia) ROS Narrative System reviewed and no additional complaints, except as documented.
[2024-11-10] MEDS: 0.9% Normal Saline (1000mL) 1,000 ML 15 ML IV (12:26)
[2024-11-10 12:47] LABS: Bedside Glucose 176 mg/dL (74-106)
--- NOTE | 2024-11-10 13:50 | PCM.HP.STD ---
HPI - General General Date of Service: 11/10/24 Chief Complaint: kidney stone s/p stent HPI Narrative JACKIE STEVENS, is a 78 M who presents plan to treat with ESWL and stent removal today on the right . [facility] Medical History Loss of hearing Wears glasses Depression Alcohol use Diabetes Prostate disease Back pain Injury of head and neck Essential tremor Loss of consciousness History of ulceration Gastric reflux Non-smoker Shortness of breath on exertion Leg cramps History of edema History of echocardiogram History of stress test Cardiology follow-up encounter High cholesterol Heart disease Anemia Hypertension Hyperlipidemia Home Medications ?Medication ?Instructions ?Recorded ?Last Taken ?Type ondansetron 4 mg disintegrating 4 mg PO Q6H PRN nausea and 10/02/24 Unknown Rx tablet vomiting #20 tabs acetaminophen 500 mg tablet 1,000 mg PO Q6H PRN pain 10/07/24 11/10/24 06:45 History (Acetaminophen Extra Strength) aspirin 81 mg tablet,delayed 81 mg PO DAILY heart 10/07/24 10/28/24 History release (Adult Low Dose Aspirin) ezetimibe 10 mg tablet 10 mg PO DAILY not sure 10/07/24 Unknown History ferrous sulfate 325 mg (65 mg 325 mg PO BID iron 10/07/24 Unknown History iron) tablet (FeroSul) metformin 500 mg tablet 1,000 mg PO DAILY diabetes 10/07/24 Unknown History metoprolol tartrate 25 mg tablet 25 mg PO DAILY bp 10/07/24 11/10/24 06:45 History multivitamin-ferrous 1 tab PO DAILY vitamin 10/07/24 Unknown History fumarate-folic acid 18 mg-400 mcg tablet (Centrum Complete) omeprazole 20 mg capsule,delayed 20 mg PO DAILY gerd 10/07/24 11/10/24 06:45 History release vitamin A-vitamin C-vit E-min 1 tab PO BID eyes 10/07/24 Unknown History tablet (Vision tablet) atorvastatin 80 mg tablet 80 mg PO DAILY 10/28/24 Unknown History glimepiride 4 mg tablet 4 mg PO BID 10/28/24 Unknown History latanoprost 0.005 % eye drops 1 drp EACH EYE DAILY 10/28/24 Unknown History losartan 25 mg tablet 12.5 mg PO DAILY 10/28/24 11/10/24 06:45 History metformin 500 mg tablet 500 mg PO QHS 10/28/24 Unknown History tamsulosin 0.4 mg capsule (Flomax) 0.4 mg PO QHS 10/28/24 Unknown History Allergy/AdvReac Type Severity Reaction Status Date / Time No Known Allergies Allergy Verified 11/10/24 12:21 Surgical History History of coronary artery stent placement History of cardiac catheterization Hx of right cataract extraction Hx of left cataract extraction Hx of colonoscopy Hx of umbilical hernia repair Hx of cystoscopy Status post ORIF of fracture of ankle S/P quadruple vessel bypass Social History household members: none current occupational status: retired Smoking Status: Never smoker alcohol intake: never Vital Signs Vital Signs Vital Signs: 11/10/24 12:23 11/10/24 12:23 Temperature 97.8 F Temperature Source Temporal Pulse Rate 65 Respiratory Rate 16 Respiratory Pattern Normal Blood Pressure 155/67 H Blood Pressure Mean 96 Blood Pressure Source Monitor Blood Pressure Position Sitting Blood Pressure Location Right Arm Pulse Ox 98 Oxygen Delivery Method Room Air Weight Weight: 69 kg Body Mass Index (BMI) 22.4 Results Lab / Micro Data Labs: Laboratory Results - last 24 hr 11/10/24 12:14: POC Glucose 176 H
[2024-11-10] MEDS: Cefazolin 2 GM in Syringe IV (14:15)
--- NOTE | 2024-11-10 14:48 | DCINST_ITS ---
Discharge Instructions Diet Discharge Diet: No restrictions DC O2, CPAP, BIPAP needs Home O2 Discharge instructions: No Dressing / Incision Discharge Activity: Return to Normal Activity and May Not Drive (while taking narcotic pain medications.) Dressing / Incision Call your doctor if you observe: Fever of 101 or Higher Follow Up Care Please Follow Up With: Judah Null MD When: Call [phone] for an appointment Test Results: Test results from this visit will be discussed in further detail at your follow- up appointment, if applicable. Discharge Plan Admission Primary Reason for Your Visit: Right kidney stone treatment with shockwave lithotripsy Attending Provider: Judah Null Primary Care Provider: Emily Campbell Instructions Print Language: Ethiopian Discharge Orders/Prescriptions Prescriptions: Continued ondansetron 4 mg tablet,disintegrating 4 mg PO Q6H PRN (Reason: nausea and vomiting) Qty: 20 0RF ezetimibe 10 mg tablet 10 mg PO DAILY metformin 500 mg tablet 1,000 mg PO DAILY metoprolol tartrate 25 mg tablet 25 mg PO DAILY Patient Comments: [NO ORIGINAL SIG] omeprazole 20 mg capsule,delayed release(DR/EC) 20 mg PO DAILY Centrum Complete 18-400 mg-mcg tablet 1 tab PO DAILY aspirin [Adult Low Dose Aspirin] 81 mg tablet,delayed release (DR/EC) 81 mg PO DAILY ferrous sulfate [FeroSul] 325 mg (65 mg iron) tablet 325 mg PO BID Patient Comments: [NO ORIGINAL SIG] Vision Tablet 1 tab PO BID acetaminophen [Acetaminophen Extra Strength] 500 mg tablet 1,000 mg PO Q6H PRN (Reason: pain) latanoprost 0.005 % drops 1 drp EACH EYE DAILY losartan 25 mg tablet 12.5 mg PO DAILY glimepiride 4 mg tablet 4 mg PO BID atorvastatin 80 mg tablet 80 mg PO DAILY metformin 500 mg tablet 500 mg PO QHS tamsulosin [Flomax] 0.4 mg capsule 0.4 mg PO QHS Referrals / Follow Up: Judah Null MD [Med Staff - Active Staff] - Emily Campbell, JEWELRY DESIGNER-C [Primary Care Provider] - Disposition Disposition (needs filled in before D/C Order can be placed): Home, Self Care
--- NOTE | 2024-11-10 14:48 | OP.PCM_ITS ---
Operative Report (Standard) Operative Information Date of Procedure: 11/10/24 Pre-Operative Diagnosis: Right kidney stone status post stent Post-Operative Diagnosis: Same Surgery/Procedure Performed: Cystoscopy, retrograde pyelogram, right extracorporeal shockwave lithotripsy, right ureteroscopy. Right stent removal spring tacker: No Type of Anesthesia: General RN Documented Start/Stop Times: Operation Date: 11/10/24 13:45 Case Time Into Pre-Op 11/10/24 11:44 Out of Pre-Op 11/10/24 14:03 Anesthesia Start 11/10/24 14:05 Into Room 11/10/24 14:05 Procedure Start 11/10/24 14:24 Procedure End 11/10/24 14:46 Procedure Start Time: 14:24 Procedure Stop Time: 14:49 Select all DRAINS/GRAFTS/IMPLANTS that apply: None Estimated Blood Loss: None Specimen collected: No Description of surgery: Patient presents to the hospital for treatment of a kidney stone with shockwave lithotripsy. In the preoperative area and x-ray was done to confirm the location of the stone. The x-ray was reviewed and the stone location was reviewed. In the preoperative setting I spoke with the patient regarding the treatment of the stone how the treatment would be conducted and the expectations after surgery. The patient understands there is a risk of bleeding and infection. Also discussed the very rare risk of hematoma or damage to the kidney . We also discussed the risk that the shockwave machine will fail to break the stone adequately and that the patient may need other surgical procedures. I also discussed the possibility that the patient may need a stent after the procedure. After reviewing the procedure with the patient, the patient is signed the consent form all the patient's questions were addressed and was taken back to the operating room for treatment of a kidney stone. Patient was taken back to the operating room, the patient was identified by the nursing staff, I identified the side of the treatment and the patient side of treatment had been marked by my initials. The patient underwent general anesthetic and was placed supine on the lithotripter table. I then used fluoroscopy to identify the stone on the right side. cystoscopy was performed and rigtht stent removed, then retrograde was done to help identify the location of the stone, I did ureteroscopy to confirm location of stone in lower pole, no stone were seen along the ureter, the ureterscope removed and continued with treatment of kidney stone. I then positioned the patient under the lithotripter and I used triangulation technique to identify the location of the stone and then I made sure that the stone was engaged in the F2 focal point of F2 Donier lithoprior machine. Once the patient was positioned appropriately and the stone was identified and placed in the F2 focal point of the lithotripter machine I then proceeded with shockwave lithotripsy. In the beginning the shockwave was delivered at a rate of 90 shocks per minute, anesthesia monitored the EKG for any ectopy. The power was slowly increased to 5 kV and subsequently at the 7 kV. I then proceeded with the treatment with shock wave therapy and around during the treatment to make sure the stone stayed in the F2 focal point during the entire treatment and after 1100 shockwaves were delivered to the stone under fluoroscopic guidance the treatment was completed. The patient was given instructions to call the office to make an a follow-up appointment with an x-ray to evaluate the success of the treatment, patient understands that its possible the stones may need another procedure. At this point the patient's anesthetic was reversed patient was extubated and taken back to the PACU in stable condition. Surgical Findings: Stone in right kidney treated with shockwave lithotripsy stent removed Complications Complications: No Admit VTE Documentation VTE Present on Admission: No VTE Mechan Device Prophylaxis: SCD's VTE Pharm Prophylaxis ordered?: No
--- NOTE | 2024-11-10 15:03 | PCM.POST.ANE ---
Anesthesia: Postop Eval I Current Vital Signs Temperature: 97.3 F Pulse Rate: 80 Blood Pressure: 156/46 Respiratory Rate: 16 Pulse Ox: 96 Oxygen Delivery Method: Room Air Assessment Airway patent: Yes Spontaneous unlabored respirations: Yes Mental status: Asleep nausea: No Vomiting: No Anesthesia Complication: No Fluid Hydration Crystalloid volume administer (ml): 500 Total IV fluid infused: 500 Progress Note Anesthesia document: Postop Eval 1 completed: Yes
[2024-11-10] MEDS: Ketorolac 15 MG/ML Vial IV (15:12)
--- NOTE | 2024-11-10 16:23 | POSTOPAN2_ITS ---
Anesthesia Postop Eval I Sum Postop Eval Completion status Anesthesia document: Postop Eval 1 completed: Yes Anesthesia Postop Eval I Summary Anesthesia Postop Eval I Summary: Anesthesia Postop Eval I: Assessment Summary Airway patent Yes 11/10/24 15:04 NATIONAL VAN OWNER OPERATOR.JDEF Spontaneous unlabored Yes 11/10/24 15:04 NATIONAL VAN OWNER OPERATOR.JDEF respirations Mental status Asleep 11/10/24 15:04 NATIONAL VAN OWNER OPERATOR.JDEF nausea No 11/10/24 15:04 NATIONAL VAN OWNER OPERATOR.JDEF Vomiting No 11/10/24 15:04 NATIONAL VAN OWNER OPERATOR.JDEF Anesthesia Postop Eval I: Fluid Summary Crystalloid volume administer 500 11/10/24 15:04 NATIONAL VAN OWNER OPERATOR.JDEF (ml) Colloids volume administered ( ml) Blood Product volume administered (ml) Total IV fluid infused 500 11/10/24 15:04 NATIONAL VAN OWNER OPERATOR.JDEF Anesthesia Postop Eval I: Summary Notes Anesthesia Complication No 11/10/24 15:04 NATIONAL VAN OWNER OPERATOR.JDEF Anesthesia Complication Comment: Post-operative progress note Anesthesia: Postop Eval II Evaluation Mental status: Awake Pain Level: 0 nausea: No Vomiting: No
--- NOTE | 2024-11-10 16:23 | PCM.POSTANE2 ---
Anesthesia Postop Eval I Sum Postop Eval Completion status Anesthesia document: Postop Eval 1 completed: Yes Anesthesia Postop Eval I Summary Anesthesia Postop Eval I Summary: Anesthesia Postop Eval I: Assessment Summary Airway patent Yes 11/10/24 15:04 FLOATING LABOR GANG SUPERVISOR.JDEF Spontaneous unlabored Yes 11/10/24 15:04 FLOATING LABOR GANG SUPERVISOR.JDEF respirations Mental status Asleep 11/10/24 15:04 FLOATING LABOR GANG SUPERVISOR.JDEF nausea No 11/10/24 15:04 FLOATING LABOR GANG SUPERVISOR.JDEF Vomiting No 11/10/24 15:04 FLOATING LABOR GANG SUPERVISOR.JDEF Anesthesia Postop Eval I: Fluid Summary Crystalloid volume administer 500 11/10/24 15:04 FLOATING LABOR GANG SUPERVISOR.JDEF (ml) Colloids volume administered ( ml) Blood Product volume administered (ml) Total IV fluid infused 500 11/10/24 15:04 FLOATING LABOR GANG SUPERVISOR.JDEF Anesthesia Postop Eval I: Summary Notes Anesthesia Complication No 11/10/24 15:04 FLOATING LABOR GANG SUPERVISOR.JDEF Anesthesia Complication Comment: Post-operative progress note Anesthesia: Postop Eval II Evaluation Mental status: Awake Pain Level: 0 nausea: No Vomiting: No
== END 2024-11-10 15:59 | disposition home or self-care (01) ==
LOC: SDC 11:36 → AC 11:38
PROVIDERS: PCP Nurse Practitioner Family; Referring Provider Urology; Visit Provider Urology
PROC: (CPT 50590; principal; 2024-11-10 13:35)
DX: N20.0 Calculus of kidney (principal); E11.9 Type 2 diabetes mellitus without complications; I10 Essential (primary) hypertension; E78.00 Pure hypercholesterolemia, unspecified; K21.9 Gastro-esophageal reflux disease without esophagitis; Z79.899 Other long term (current) drug therapy; Z79.84 Long term (current) use of oral hypoglycemic drugs
CPT/HCPCS: 50590; 52310; 00873; 74018; 82962; C1769; J2405

== ENCOUNTER 2024-12-02 09:42 | Day surgery (SDC) | payer MEDICARE, SELFPAY ==
--- NOTE | 2024-11-23 08:44 | PAT.ANE_ITS ---
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 When Was Last Pacemaker Check QUESTION #4 FULL TEXT: You/Your Family Experience fever (hyperthermia) with Anesthesia Last Oral Intake Last Oral intake: Last Oral Intake NPO since Meds taken in AM with sips of water? 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 craftsman Female No 11/22/24 13:58 HX of Motion Sickness No 11/22/24 13:58 HX of N/V After Surgery No 11/22/24 13:58 Non-Smoker Yes 11/22/24 13:58 Duration of Surgery greater Yes 11/22/24 13:58 than 60 minutes Number of Risk Factors 2 11/22/24 13:58 PONV Score Moderate Risk 11/22/24 13:58 Height & Weight Height & Weight: Anesthesia: Height & Weight Height 5 ft 9 in 11/18/24 14:24 Respiratory Assessment Respiratory Assessment - window and siding craftsman: Respiratory Tract Infection Hx - window and siding craftsman Hx Respiratory Tract Infection No 11/22/24 13:58 STOP Sleep Apnea STOP Sleep Apnea - window and siding craftsman: STOP Sleep Apnea - window and siding craftsman Hx Hypertension Yes: CONTROLLED WITH MED 11/22/24 13:58 Hx Sleep Apnea No 11/22/24 13:58 CPAP BIPAP Do you snore loudly (louder No 11/22/24 13:58 than talking or can be heard Do you often feel tired/ Yes 11/22/24 13:58 fatigued/ sleepy during daytime? Has anyone observed you stop No 11/22/24 13:58 breathing during sleep? STOP Results Positive 11/22/24 13:58 QUESTION #5 FULL TEXT : Do you snore loudly (louder than talking or can be heard through closed doors)? 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 Specify any problems Hx of Preganancy in last 3 N/A 11/22/24 13:58 Months Nurse Filling Out Transfusion DSCHRIBER 11/22/24 13:58 & Questions: Date: 11/22/24 11/22/24 13:58 Time: 13:59 11/22/24 13:58 Patient unable to answer at this time (ie. confused, unrespo /Reproduction History /Reproductive History - window and siding craftsman: /Reproductive Hx- window and siding craftsman Hx Now No 11/22/24 13:58 Gestational Age (in weeks): EDC: Hx Hx Para Hx Section SAB No 11/22/24 13:58 PFSH Medical History (Updated 11/22/24 @ 14:02 by Suzie Noyola) Inguinal hernia Loss of hearing Wears glasses Depression Alcohol use Diabetes Prostate disease Back pain Injury of head and neck Essential tremor Loss of consciousness History of ulceration Gastric reflux Non-smoker Shortness of breath on exertion Leg cramps History of edema History of echocardiogram History of stress test Cardiology follow-up encounter High cholesterol Heart disease Anemia Hypertension Hyperlipidemia Home Medications ?Medication ?Instructions ?Recorded ?Last Taken ?Type acetaminophen 500 mg tablet 1,000 mg PO Q6H PRN pain 0 10/07/24 11/10/24 06:45 History (Acetaminophen Extra Strength) aspirin 81 mg tablet,delayed 81 mg PO DAILY heart 01/2610/28/24 History release (Adult Low Dose Aspirin) ezetimibe 10 mg tablet 10 mg PO DAILY not sure 01/26 Unknown History ferrous sulfate 325 mg (65 mg 325 mg PO BID iron 10/07 Unknown History iron) tablet (FeroSul) metformin 500 mg tablet 1,000 mg PO BID diabetes 01/26 Unknown History metoprolol tartrate 25 mg tablet 25 mg PO DAILY bp 01/2611/10/24 06:45 History multivitamin-ferrous 1 tab PO DAILY vitamin 10/07 Unknown History fumarate-folic acid 18 mg-400 mcg tablet (Centrum Complete) omeprazole 20 mg capsule,delayed 20 mg PO DAILY gerd 0 10/07/24 11/10/24 06:45 History release vitamin A-vitamin C-vit E-min 1 tab PO BID eyes Unknown History tablet (Vision tablet) atorvastatin 80 mg tablet 80 mg PO DAILY 10/28/24 Unkn own History glimepiride 4 mg tablet 4 mg PO BID 10/28/24 Unknown History latanoprost 0.005 % eye drops 1 drp EACH EYE DAILY Unknown History losartan 25 mg tablet 12.5 mg PO DAILY 10/28/24 06:45 History tamsulosin 0.4 mg capsule (Flomax) 0.4 mg PO DAILY Unknown History ascorbic acid (vitamin C) 1,000 mg 1,000 mg PO DAILY 0 11/22/24 Unknown History tablet,extended release (C Complex) cholecalciferol (vitamin D3) 25 25 mcg PO DAILY Unknown History mcg (1,000 unit) capsule (Vitamin D3) Allergy/AdvReac Type Severity Reaction Status Date / Time No Known Allergies Allergy Verified 11/22/24 13:50 Surgical History (Updated 11/22/24 @ 14:02 by Suzie Noyola) History of cystoscopy History of coronary artery stent placement History of cardiac catheterization Hx of right cataract extraction Hx of left cataract extraction Hx of colonoscopy Hx of umbilical hernia repair Hx of cystoscopy Status post ORIF of fracture of ankle S/P quadruple vessel bypass Social History household members: none current occupational status: retired Smoking Status: Never smoker alcohol intake: never Audit: Pertinent Findings Pertinent Findings EKG Perinent findings: October 05, 2024. Normal sinus rhythm. Nonspecific ST and T wave abnormality. Echo (EF%) pertinent findings: April 03, 2023. Ejection fraction of 65 to 70%. No aortic valve stenosis. No pulmonary hypertension. Consult pertinent findings: April 29, 2024. Dr. Anders. 1. Fatigue-improved with reduction of beta-silvio dose. 2. Hypertension-good control. 3. Coronary artery disease without angina. Status post CABG but all grafts are nonfunctional. The LAD has significant disease which can be stented. Currently patient denies chest pain. His fatigue is improved with reduction of beta- silvio. Recommendation Anesthesia Recommendation Anesthesia recommendation: OPTIMIZED for anesthesia
--- NOTE | 2024-11-26 10:06 | PAT.ANESEVAL ---
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 When Was Last Pacemaker Check QUESTION #4 FULL TEXT: You/Your Family Experience fever (hyperthermia) with Anesthesia Last Oral Intake Last Oral intake: Last Oral Intake NPO since Meds taken in AM with sips of water? Meds patient instructed to take am of surgery PONV PONV - marine service manager: PONV - marine service manager Female No 11/22/24 13:58 HX of Motion Sickness No 11/22/24 13:58 HX of N/V After Surgery No 11/22/24 13:58 Non-Smoker Yes 11/22/24 13:58 Duration of Surgery greater Yes 11/22/24 13:58 than 60 minutes Number of Risk Factors 2 11/22/24 13:58 PONV Score Moderate Risk 11/22/24 13:58 Height & Weight Height & Weight: Anesthesia: Height & Weight Height 5 ft 9 in 11/18/24 14:24 Respiratory Assessment Respiratory Assessment - marine service manager: Respiratory Tract Infection Hx - marine service manager Hx Respiratory Tract Infection No 11/22/24 13:58 STOP Sleep Apnea STOP Sleep Apnea - marine service manager: STOP Sleep Apnea - marine service manager Hx Hypertension Yes: CONTROLLED WITH MED 11/22/24 13:58 Hx Sleep Apnea No 11/22/24 13:58 CPAP BIPAP Do you snore loudly (louder No 11/22/24 13:58 than talking or can be heard Do you often feel tired/ Yes 11/22/24 13:58 fatigued/ sleepy during daytime? Has anyone observed you stop No 11/22/24 13:58 breathing during sleep? STOP Results Positive 11/22/24 13:58 QUESTION #5 FULL TEXT : Do you snore loudly (louder than talking or can be heard through closed doors)? 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 Specify any problems Hx of Preganancy in last 3 N/A 11/22/24 13:58 Months Nurse Filling Out Transfusion DSCHRIBER 11/22/24 13:58 & Questions: Date: 11/22/24 11/22/24 13:58 Time: 13:59 11/22/24 13:58 Patient unable to answer at this time (ie. confused, unrespo /Reproduction History /Reproductive History - marine service manager: /Reproductive Hx- marine service manager Hx Now No 11/22/24 13:58 Gestational Age (in weeks): EDC: Hx Hx Para Hx Section SAB No 11/22/24 13:58 PFSH Medical History (Updated 11/22/24 @ 14:02 by Suzie Noyola) Inguinal hernia Loss of hearing Wears glasses Depression Alcohol use Diabetes Prostate disease Back pain Injury of head and neck Essential tremor Loss of consciousness History of ulceration Gastric reflux Non-smoker Shortness of breath on exertion Leg cramps History of edema History of echocardiogram History of stress test Cardiology follow-up encounter High cholesterol Heart disease Anemia Hypertension Hyperlipidemia Home Medications ?Medication ?Instructions ?Recorded ?Last Taken ?Type acetaminophen 500 mg tablet 1,000 mg PO Q6H PRN pain 10/07/24 11/10/24 06:45 History (Acetaminophen Extra Strength) aspirin 81 mg tablet,delayed 81 mg PO DAILY heart 10/07/24 10/28/24 History release (Adult Low Dose Aspirin) ezetimibe 10 mg tablet 10 mg PO DAILY not sure 10/07/24 Unknown History ferrous sulfate 325 mg (65 mg 325 mg PO BID iron 10/07/24 Unknown History iron) tablet (FeroSul) metformin 500 mg tablet 1,000 mg PO BID diabetes 10/07/24 Unknown History metoprolol tartrate 25 mg tablet 25 mg PO DAILY bp 10/07/24 11/10/24 06:45 History multivitamin-ferrous 1 tab PO DAILY vitamin 10/07/24 Unknown History fumarate-folic acid 18 mg-400 mcg tablet (Centrum Complete) omeprazole 20 mg capsule,delayed 20 mg PO DAILY gerd 10/07/24 11/10/24 06:45 History release vitamin A-vitamin C-vit E-min 1 tab PO BID eyes 10/07/24 Unknown History tablet (Vision tablet) atorvastatin 80 mg tablet 80 mg PO DAILY 10/28/24 Unknown History glimepiride 4 mg tablet 4 mg PO BID 10/28/24 Unknown History latanoprost 0.005 % eye drops 1 drp EACH EYE DAILY 10/28/24 Unknown History losartan 25 mg tablet 12.5 mg PO DAILY 10/28/24 11/10/24 06:45 History tamsulosin 0.4 mg capsule (Flomax) 0.4 mg PO DAILY 10/28/24 Unknown History ascorbic acid (vitamin C) 1,000 mg 1,000 mg PO DAILY 11/22/24 Unknown History tablet,extended release (C Complex) cholecalciferol (vitamin D3) 25 25 mcg PO DAILY 11/22/24 Unknown History mcg (1,000 unit) capsule (Vitamin D3) Allergy/AdvReac Type Severity Reaction Status Date / Time No Known Allergies Allergy Verified 11/22/24 13:50 Surgical History (Updated 11/22/24 @ 14:02 by Suzie Noyola) History of cystoscopy History of coronary artery stent placement History of cardiac catheterization Hx of right cataract extraction Hx of left cataract extraction Hx of colonoscopy Hx of umbilical hernia repair Hx of cystoscopy Status post ORIF of fracture of ankle S/P quadruple vessel bypass Social History household members: none current occupational status: retired Smoking Status: Never smoker alcohol intake: never Audit: Pertinent Findings HISTORY of Pertinent Findings History of Pertinent Findings: EKG Pertinent Findings EKG Perinent findings October 05, 2024. Normal sinus 11/23/24 08:[address] and T wave abnormality. Echo Pertinent Findings Echo (EF%) pertinent findings April 03, 2023. Ejection 11/23/24 15:42 fraction of 65 to 70%. No aortic valve stenosis. No pulmonary hypertension. Consult Pertinent Findings Consult pertinent findings April 29, 2024. Dr. Anders 11/23/24 15:47 . 1. Fatigue-improved with reduction of beta-silvio dose. 2. Hypertension-good control. 3. Coronary artery disease without angina. Status post CABG but all grafts are nonfunctional. The LAD has significant disease which can be stented. Currently patient denies chest pain. His fatigue is improved with reduction of beta-silvio. Pertinent Findings Additional pertinent findings: Recent labs. 11/25/2024. Glucose is 382. Hemoglobin A1c is 7.9. Recommendation Anesthesia Recommendation Anesthesia recommendation: OPTIMIZED for anesthesia (Will need to repeat the glucose on day of surgery and treat as indicated. A1c is 7.9 and is acceptable for surgery.)
[2024-12-02] VITALS (10 sets, daily range): BP systolic 131–161; BP diastolic 58–81; PULSE 56–74; RESP 16–18; TEMP 36.1–36.9; O2SAT 94–98; BMI 22.6
[2024-12-02] MEDS: Lactated Ringers 1,000 ML 15 ML IV (10:26)
[2024-12-02 10:44] LABS: Bedside Glucose 181 mg/dL (74-106)
--- NOTE | 2024-12-02 11:10 | PCM.PRE.AN2 ---
ASA Classification* ASA Classification ASA Classification: 2 Assessment & Plan Anesthesia* Anesthesia Assessment Anesthesia Assessment: Discussed sedation and/or anesthesia options, risks, benefits, and alternatives with patient/parents/legal guardian/POA. Questions invited. The patient/parents/legal guardian/POA seems to understand and agrees to proceed with anesthesia plan. Reviewed the physical assessment, medical history, allergy history and patient home medications list prior to surgery/procedure/anesthetic and documented any changes. Performed airway and anesthesia risk assessments. Anesthesia Type Anesthesia Type: General History Source History Obtained from:: Patient and Chart Anesthesia Focused Assessment* Temperature: 97.4 F Pulse Rate: 63 Blood Pressure: 161/71 Respiratory Rate: 18 Pulse Ox: 98 Oxygen Delivery Method: Room Air Airway Assessment Mouth opens: >3 cm Mallampati Score: II Teeth Condition: Intact and Missing (Patient has several missing teeth. they are tight.) Neck Range of motion (ROM): Full ROM Focused Labs Anesthesia Preop lab: CBC WBC 8.1 K/mm3 (4.4-11.0) 10/21/24 11:15 10/21/24 RBC 3.95 M/mm3 (4.6-6.2) L 10/21/24 11:15 10/21/24 Hgb 12.2 g/dL (13.0-16.5) L 10/21/24 11:15 10/21/24 Hct 37.2 % (40-54) L 10/21/24 11:15 10/21/24 Plt Count 356 K/mm3 (150-450) 10/21/24 11:15 10/21/24 CHEMISTRY Potassium 4.8 mmol/L (3.3-5.1) 10/21/24 11:15 10/21/24 Sodium 138 mmol/L (133-145) 10/21/24 11:15 10/21/24 Magnesium 1.5 mg/dL (1.5-2.2) 10/07/24 05:59 10/07/24 Phosphorus 3.0 mg/dL (2.7-4.5) 10/07/24 05:59 10/07/24 BUN 35 mg/dL (4-19) H 10/21/24 11:15 10/21/24 Creatinine 1.49 mg/dL (0.70-1.20) H 10/21/24 11:15 10/21/24 Glucose 328 mg/dL (70-99) H 10/21/24 11:15 10/21/24 POC Glucose 181 mg/dL (74-106) H 12/02/24 10:07 12/02/24 COAG PT 14.4 SECONDS (11.7-14.9) 10/05/24 13:21 10/05/24 Pre-Assessment Diagnosis/Proposed Procedure Planned Operative Procedure(s): LAP ROBOTIC INGUINAL HERNIA RIGHT WITH MESH Anesthesia History 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 When Was Last Pacemaker Check QUESTION #4 FULL TEXT: You/Your Family Experience fever (hyperthermia) with Anesthesia Last Oral Intake Last Oral intake: Last Oral Intake NPO since 19:00 12/02/24 10:15 Meds taken in AM with sips of Yes 12/02/24 10:15 water? Meds patient instructed to take am of surgery Any additional information?: Yes Meds taken in AM with sips of water?: Yes PONV PONV - aircraft time clerk: PONV - aircraft time clerk Female No 11/22/24 13:58 HX of Motion Sickness No 11/22/24 13:58 HX of N/V After Surgery No 11/22/24 13:58 Non-Smoker Yes 11/22/24 13:58 Duration of Surgery greater Yes 11/22/24 13:58 than 60 minutes Number of Risk Factors 2 11/22/24 13:58 PONV Score Moderate Risk 11/22/24 13:58 Height & Weight Height & Weight: Anesthesia: Height & Weight Height 5 ft 9 in 12/02/24 10:15 Weight: 69.4 kg 12/02/24 10:15 Body Mass Index (BMI) 22.6 12/02/24 10:15 Respiratory Assessment Respiratory Assessment - aircraft time clerk: Respiratory Tract Infection Hx - aircraft time clerk Hx Respiratory Tract Infection No 11/22/24 13:58 STOP Sleep Apnea STOP Sleep Apnea - aircraft time clerk: STOP Sleep Apnea - aircraft time clerk Hx Hypertension Yes: CONTROLLED WITH MED 11/22/24 13:58 Hx Sleep Apnea No 11/22/24 13:58 CPAP BIPAP Do you snore loudly (louder No 11/22/24 13:58 than talking or can be heard Do you often feel tired/ Yes 11/22/24 13:58 fatigued/ sleepy during daytime? Has anyone observed you stop No 11/22/24 13:58 breathing during sleep? STOP Results Positive 11/22/24 13:58 QUESTION #5 FULL TEXT : Do you snore loudly (louder than talking or can be heard through closed doors)? 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 Specify any problems Hx of Preganancy in last 3 N/A 11/22/24 13:58 Months Nurse Filling Out Transfusion DSCHRIBER 11/22/24 13:58 & Questions: Date: 11/22/24 11/22/24 13:58 Time: 13:59 11/22/24 13:58 Patient unable to answer at this time (ie. confused, unrespo /Reproduction History /Reproductive History - aircraft time clerk: /Reproductive Hx- aircraft time clerk Hx Now No 11/22/24 13:58 Gestational Age (in weeks): EDC: Hx Hx Para Hx Section SAB No 11/22/24 13:58 Active Medications Active Medications: Current Medications Generic Name Dose Route Start Last Admin Trade Name Freq PRN Reason Stop Dose Admin Cefazolin Sodium 2 gm/ Sodium 110 mls @ 150 mls/hr 12/02/24 11:25 Chloride IV 12/02/24 12:08 INTRAOP ONE Lactated Ringer's 1,000 mls @ 15 mls/hr 12/02/24 10:00 12/02/24 10:26 IV 15 mls/hr .Q48H GABINO Administration PFSH Medical History Inguinal hernia Loss of hearing Wears glasses Depression Alcohol use Diabetes Prostate disease Back pain Injury of head and neck Essential tremor Loss of consciousness History of ulceration Gastric reflux Non-smoker Shortness of breath on exertion Leg cramps History of edema History of echocardiogram History of stress test Cardiology follow-up encounter High cholesterol Heart disease Anemia Hypertension Hyperlipidemia Home Medications ?Medication ?Instructions ?Recorded ?Last Taken ?Type acetaminophen 500 mg tablet 1,000 mg PO Q6H PRN pain 10/07/24 12/01/24 19:10 History (Acetaminophen Extra Strength) aspirin 81 mg tablet,delayed 81 mg PO DAILY heart 10/07/24 11/22/24 History release (Adult Low Dose Aspirin) ezetimibe 10 mg tablet 10 mg PO DAILY not sure 10/07/24 12/01/24 History ferrous sulfate 325 mg (65 mg 325 mg PO BID iron 10/07/24 12/01/24 History iron) tablet (FeroSul) metformin 500 mg tablet 1,000 mg PO BID diabetes 10/07/24 12/01/24 History metoprolol tartrate 25 mg tablet 25 mg PO DAILY bp 10/07/24 12/02/24 06:15 History multivitamin-ferrous 1 tab PO DAILY vitamin 10/07/24 12/01/24 History fumarate-folic acid 18 mg-400 mcg tablet (Centrum Complete) omeprazole 20 mg capsule,delayed 20 mg PO DAILY gerd 10/07/24 12/02/24 History release vitamin A-vitamin C-vit E-min 1 tab PO BID eyes 10/07/24 12/01/24 History tablet (Vision tablet) atorvastatin 80 mg tablet 80 mg PO DAILY 10/28/24 12/01/24 History glimepiride 4 mg tablet 4 mg PO BID 10/28/24 12/01/24 History latanoprost 0.005 % eye drops 1 drp EACH EYE DAILY 10/28/24 12/02/24 History losartan 25 mg tablet 12.5 mg PO DAILY 10/28/24 12/02/24 06:15 History tamsulosin 0.4 mg capsule (Flomax) 0.4 mg PO DAILY 10/28/24 12/02/24 History ascorbic acid (vitamin C) 1,000 mg 1,000 mg PO DAILY 11/22/24 12/01/24 History tablet,extended release (C Complex) cholecalciferol (vitamin D3) 25 25 mcg PO DAILY 11/22/24 12/01/24 History mcg (1,000 unit) capsule (Vitamin D3) Allergy/AdvReac Type Severity Reaction Status Date / Time No Known Allergies Allergy Verified 12/02/24 10:09 Surgical History History of cystoscopy History of coronary artery stent placement History of cardiac catheterization Hx of right cataract extraction Hx of left cataract extraction Hx of colonoscopy Hx of umbilical hernia repair Hx of cystoscopy Status post ORIF of fracture of ankle S/P quadruple vessel bypass Social History household members: none current occupational status: retired Smoking Status: Never smoker alcohol intake: never Review of Systems (Anesthesia) ROS Narrative System reviewed and no additional complaints, except as documented.
--- NOTE | 2024-12-02 11:19 | PCM.HP.BLA ---
History and Physical Date of Admission: 12/02/24 Intake Vital Signs 11/11/2511:23 11/18/2513:24 Height 5 ft 9 in 5 ft 9 in Weight: 155 lb BMI 22.8 BP 133/78 H Blood Pressure Location Rt brachial Position Sitting Respiration 18 Pulse 84 Pulse Source Monitor Temp 97.5 F L Temp Source Temporal Pulse Oximetry (%) 98 Oxygen Delivery Method room air Intake Visit Reasons: DISCUSS HERNIA SURGERY Chief Complaint: discuss hernia surgery Accompanied by: Son Is patient in pain?: No Allergies No Known Allergies Allergy (Verified 11/18/24 14:25) Medications ?Medication ?Instructions ?Recorded ?Confirmed ?Type ondansetron 4 mg disintegrating 4 mg PO Q6H PRN nausea and 10/02/24 11/18/24 Rx tablet vomiting #20 tabs acetaminophen 500 mg tablet 1,000 mg PO Q6H PRN pain 10/07/24 11/18/24 History (Acetaminophen Extra Strength) aspirin 81 mg tablet,delayed 81 mg PO DAILY heart 10/07/24 11/18/24 History release (Adult Low Dose Aspirin) ezetimibe 10 mg tablet 10 mg PO DAILY not sure 10/07/24 11/18/24 History ferrous sulfate 325 mg (65 mg 325 mg PO BID iron 10/07/24 11/18/24 History iron) tablet (FeroSul) metformin 500 mg tablet 1,000 mg PO DAILY diabetes 10/07/24 11/18/24 History metoprolol tartrate 25 mg tablet 25 mg PO DAILY bp 10/07/24 11/18/24 History multivitamin-ferrous 1 tab PO DAILY vitamin 10/07/24 11/18/24 History fumarate-folic acid 18 mg-400 mcg tablet (Centrum Complete) omeprazole 20 mg capsule,delayed 20 mg PO DAILY gerd 10/07/24 11/18/24 History release vitamin A-vitamin C-vit E-min 1 tab PO BID eyes 10/07/24 11/18/24 History tablet (Vision tablet) atorvastatin 80 mg tablet 80 mg PO DAILY 10/28/24 11/18/24 History glimepiride 4 mg tablet 4 mg PO BID 10/28/24 11/18/24 History latanoprost 0.005 % eye drops 1 drp EACH EYE DAILY 10/28/24 11/18/24 History losartan 25 mg tablet 12.5 mg PO DAILY 10/28/24 11/18/24 History metformin 500 mg tablet 500 mg PO QHS 10/28/24 11/18/24 History tamsulosin 0.4 mg capsule (Flomax) 0.4 mg PO QHS 10/28/24 11/18/24 History Have you fallen in the past year?: No PFSH Medical History (Updated 11/18/24 @ 15:[address] Bossman Vides MD) Inguinal hernia Loss of hearing Wears glasses Depression Alcohol use Diabetes Prostate disease Back pain Injury of head and neck Essential tremor Loss of consciousness History of ulceration Gastric reflux Non-smoker Shortness of breath on exertion Leg cramps History of edema History of echocardiogram History of stress test Cardiology follow-up encounter High cholesterol Heart disease Anemia Hypertension Hyperlipidemia Surgical History History of coronary artery stent placement History of cardiac catheterization Hx of right cataract extraction Hx of left cataract extraction Hx of colonoscopy Hx of umbilical hernia repair Hx of cystoscopy Status post ORIF of fracture of ankle S/P quadruple vessel bypass Social History household members: none current occupational status: retired Smoking Status: Never smoker alcohol intake: never HPI HPI HPI: Patient is an 78-year-old male with a right inguinal hernia containing the dome of the bladder. He presents again to discuss surgery. He reports having his kidney stone dealt with that he is feeling well. He does not describe much symptom for the hernia. ROS General General: Yes fatigue; No weight change, appetite, colon cancer, breast cancer or weakness HEENT HEENT: No difficulty swallowing, eye injury, eye surgery, swollen glands or hoarseness Endo Endocrine: Yes diabetes mellitus; No thyroid disease, thyroid cancer, Hair loss, heat intolerance or cold intolerance Skin Skin: No rash or changing moles Breast Breast: No left breast lump, right breast lump, nipple discharge, breast pain, abnormal mammogram, abnormal US or breast enlargement Musc Musculoskeletal: Yes arthritis; No back problems, rheumatoid arthritis, gout or joint pain Cardio Cardiovascular: Yes high blood pressure and heart stent; No murmur, pacemaker, heart disease, atrial fibrillation, heart attack, palpitations, shortness of breath with exertion or chest pain Psych Psychiatric: Yes depression; No anxiety or hearing voices Resp Respiratory: Yes shortness of breath, No sleep apnea, Yes cough, No COPD, No asthma, No emphysema and No wheezing Gastro Gastrointestinal: No abdominal pain, No nausea or vomiting, Yes diarrhea, No constipation, No blood in stool, No acid reflux, No hemorrhoids, No ulcers, No gallbladder problem and No black,tarry stools Axel Hematologic: Yes blood thinners, No blood disorders, No bleeding, No anemia and No blood clots Neuro Neurologic: No system reviewed and no additional complaints, except as documented, No as per HPI, No abnormal gait, No abnormal hearing, No abnormal movements, No abnormal speech, No behavioral changes, No burning sensations, No confusion, No convulsions, No disequilibrium, No dizziness, No localized weakness, No frequent falls, No headache(s), No lack of coordination, No loss of vision, No memory loss, Yes numbness, No other visual disturbances, No radicular pain, No restless legs, No sensory deficit, No syncope, Yes tingling, No tremor(s), No weakness and No other Exam Const General: cooperative Orientation: alert and oriented x3 HENMT Head: normal to inspection Neck Neck: normal visual inspection and full ROM Chest Chest palpation & inspection: normal inspection of the chest Resp Effort & Inspection: normal respiratory effort Auscultation: clear to auscultation bilaterally Cardio Rate: regular rate Rhythm: regular rhythm GI Inspection: non-distended Palpation: soft, hernia indirect inguinal on the right and nontender Skin General: no rashes or lesions noted Neuro General: patient alert and patient oriented x3 Extrem General: full ROM Psych Appearance: grossly normal Mental Status: mental status grossly normal Assessment and Plan Assessment and Plan (1) Inguinal hernia: Status: Acute Qualifiers: Obstruction and gangrene presence: without obstruction or gangrene Laterality: unilateral Recurrence: non-recurrent Qualified Code(s): K40.90 - Unilateral inguinal hernia, without obstruction or gangrene, not specified as recurrent Plan: The patient has a right inguinal hernia which contains the dome of his bladder. Currently the patient is not having much symptoms from his hernia. He would like it fixed as his doctor told him that he is not fully emptying his bladder. I explained that this would be higher risk than normal due to the containment of the bladder and the hernia and that he had an increased risk of bladder injury. The patient would still like it repaired. I discussed robotic assisted laparoscopic inguinal hernia repair with mesh. I discussed having to reduce the bladder and if I am unable to reduce the bladder I am unable to repair the hernia. I also discussed the other risks of the surgery including but not limited to bleeding, infection, chronic groin pain, injury to the testicle or the blood supply to the testicle, injury to blood supply to the leg, injury to the bladder. Patient understands the risks and is willing to proceed. He will hold his aspirin for 5 days prior to the surgery. Bossman Vides MD Pager: [facility] [address] [place] [address], [address] [place] [address] Office: I have examined the patient and the H&P has been reviewed. There are no clinical changes since date of exam.
[2024-12-02] MEDS: Cefazolin 2 GM in 0.9% Normal Saline (100mL Bag) 100 ML IV (12:05)
[2024-12-02] MEDS: Bupivacaine Mpf 0.5% 30 ML VIAL (13:07)
--- NOTE | 2024-12-02 13:07 | OP.PCM_ITS ---
Operative Report (Standard) Operative Information Date of Procedure: 12/02/24 Pre-Operative Diagnosis: Right inguinal hernia containing bladder Post-Operative Diagnosis: Same Surgery/Procedure Performed: Robotic assisted right inguinal hernia repair with mesh chemical analytical sampler: Yes Nanofabrication Specialist: Magdalene Hughes Tasks completed by shampoo assistant: Opening and Closing Type of Anesthesia: General/Regional RN Documented Start/Stop Times: Operation Date: 12/02/24 11:25 Case Time Into Pre-Op 12/02/24 09:52 Out of Pre-Op 12/02/24 11:45 Anesthesia Start 12/02/24 12:00 Into Room 12/02/24 12:00 Procedure Start 12/02/24 12:25 Procedure Start Time: 12:25 Procedure Stop Time: 13:15 Select all DRAINS/GRAFTS/IMPLANTS that apply: None Estimated Blood Loss: 5 Specimen collected: No Description of surgery: Patient was brought back to the operating room and general anesthesia was induced. A Oden catheter was placed. Abdomen was prepped and draped in usual sterile fashion. A midline incision was made superior to the umbilicus and his former umbilical hernia repair. Direct cutdown was achieved and the abdomen was entered. There were some adhesions to his umbilical mesh. An 8 mm port was placed in the right lateral abdominal sidewall and a grasper was used to take down the adhesions bluntly. Next an 8 mm port was placed in the left lateral sidewall and then the robot was docked and the patient was placed in Trendelenburg position. The patient had a direct inguinal hernia containing bladder on the right side. The peritoneum superior to this was incised using electrocautery scissors. Dissection was carried out until the hernia was reached. Using direct pressure and dissection the bladder was able to be reduced from the direct hernia. The adhesions were taken down and the bladder sat nicely down without any retraction into the hernia. Dissection was carried laterally and the indirect space was dissected free. Next a mesh was taken and placed in the right groin and unfolded completely covering the hernia defect and the indirect space. There was good coverage of the hernia circumferentially without the bladder being under the mesh. Next the peritoneum was reapproximated using a running 3 OV lock suture completely covering the mesh. Next the abdomen was allowed to desufflate and the instruments were removed. The robot was undocked. The incisions were injected with local anesthetic and closed with interrupted 4-0 Monocryl sutures. Steri-Strips and bandages were applied. Scrotum was checked at the end of the case and contained both testicles. Oden catheter was removed at the end of the case. Patient was taken to PACU in stable condition and tolerated the procedure well. Surgical Findings: Direct right inguinal hernia containing bladder Complications Complications: No Admit VTE Documentation VTE Mechan Device Prophylaxis: SCD's
--- NOTE | 2024-12-02 13:11 | EX.PCM.DISCH ---
Discharge Instructions Procedure Hernia Diet Discharge Diet: Light diet - advance as tolerated Activity Discharge Activity: May Not Drive (for 2-3 days or while taking narcotic pain meds.) and May Shower (with the bandage in place 1-2 days after surgery.) Lifting Restrictions: 20 pounds for 6 weeks. Additional Activity Instructions:: Climbing stairs is fine, walking is encouraged. Sitting in bed may be uncomfortable. Sitting up using your lateral muscles (sitting up sideways) is usually more comfortable. Do not drive, work heavy equipment of sign legal documents for 24 hours. If your hernia repair was an inguinal repair, you may have scrotal swelling, an ice pack and/or athletic support can provide more comfort. Pain medications may cause nausea, you should typically eat light foods as you take your pain medications. Pain medications may also cause constipation. If you have difficulty with this, discuss with your doctor. Alternate ibuprofen and Tylenol for pain control, oxycodone for any breakthrough pain. Dressing / Incision Call your doctor if your incision/area has: Continuous Slow Oozing, Sudden Increased Bleeding, Increased Pain/ Swelling, Increased Redness and Foul Smelling Discharge Call your doctor if you observe: Fever of 101 or Higher Suture Line Care: Avoid Pulling/Pushing and Avoid Pinching/Bending Remove Dressing in: 2 days (Remove clear bandages in 2 days, remove Steri-Strips in 7 to 10 days.) Cleanse incision/area with: Soap & Water Follow Up Care Please Follow Up With: Bossman Vides MD When: Please call to schedule 2 week follow up appointment. [phone] Test Results: Test results from this visit will be discussed in further detail at your follow-up appointment, if applicable. Discharge Plan Admission Attending Provider: Bossman Vides Primary Care Provider: Emily Campbell Instructions Print Language: Faroese Discharge Orders/Prescriptions Prescriptions: New oxycodone 5 mg Tablet 5 - 10 mg PO Q4H PRN PRN (Reason: Pain Score 4-10) 5 Days Qty: 10 0RF No Action cholecalciferol (vitamin D3) [Vitamin D3] 25 mcg (1,000 unit) capsule 25 mcg PO DAILY C Complex 1,000 mg tablet extended release 1,000 mg PO DAILY ezetimibe 10 mg tablet 10 mg PO DAILY metformin 500 mg tablet 1,000 mg PO BID metoprolol tartrate 25 mg tablet 25 mg PO DAILY Patient Comments: [NO ORIGINAL SIG] omeprazole 20 mg capsule,delayed release(DR/EC) 20 mg PO DAILY Centrum Complete 18-400 mg-mcg tablet 1 tab PO DAILY aspirin [Adult Low Dose Aspirin] 81 mg tablet,delayed release (DR/EC) 81 mg PO DAILY ferrous sulfate [FeroSul] 325 mg (65 mg iron) tablet 325 mg PO BID Patient Comments: [NO ORIGINAL SIG] Vision Tablet 1 tab PO BID acetaminophen [Acetaminophen Extra Strength] 500 mg tablet 1,000 mg PO Q6H PRN (Reason: pain) latanoprost 0.005 % drops 1 drp EACH EYE DAILY losartan 25 mg tablet 12.5 mg PO DAILY glimepiride 4 mg tablet 4 mg PO BID atorvastatin 80 mg tablet 80 mg PO DAILY tamsulosin [Flomax] 0.4 mg capsule 0.4 mg PO DAILY Referrals / Follow Up: Emily Campbell NUTS AND [employer]OLTS ASSEMBLER-C [Primary Care Provider] - Disposition Disposition (needs filled in before D/C Order can be placed): Home, Self Care
--- NOTE | 2024-12-02 13:23 | PCM.POST.ANE ---
Anesthesia: Postop Eval I Current Vital Signs Temperature: 98.5 F Pulse Rate: 74 Blood Pressure: 154/81 Respiratory Rate: 16 Pulse Ox: 96 Oxygen Delivery Method: Room Air Assessment Airway patent: Yes Spontaneous unlabored respirations: Yes Mental status: Awake and Calm nausea: No Vomiting: No Anesthesia Complication: No Fluid Hydration Crystalloid volume administer (ml): 800 Total IV fluid infused: 800 Progress Note Anesthesia document: Postop Eval 1 completed: Yes
[2024-12-02] MEDS: oxyCODONE 5 MG Tablet PO (14:25)
[2024-12-02] MEDS: Acetaminophen 325 MG Tablet 650 MG PO (14:25)
--- NOTE | 2024-12-02 15:29 | POSTOPAN2_ITS ---
Anesthesia Postop Eval I Sum Postop Eval Completion status Anesthesia document: Postop Eval 1 completed: Yes Anesthesia Postop Eval I Summary Anesthesia Postop Eval I Summary: Anesthesia Postop Eval I: Assessment Summary Airway patent Yes 12/02/24 13:23 PORK CUTLET [email or web address].[email or web address] Spontaneous unlabored Yes 12/02/24 13:23 PORK CUTLET MAKER.[email or web address] respirations Mental status Awake,Calm 12/02/24 13:23 PORK CUTLET [email or web address].[email or web address] nausea No 12/02/24 13:23 PORK CUTLET MAKER.GDOTT Vomiting No 12/02/24 13:23 PORK CUTLET [email or web address].[email or web address] Anesthesia Postop Eval I: Fluid Summary Crystalloid volume administer 800 12/02/24 13:23 PORK CUTLET [email or web address].GDOTT (ml) Colloids volume administered ( ml) Blood Product volume administered (ml) Total IV fluid infused 800 12/02/24 13:23 PORK CUTLET MAKER.GDOTT Anesthesia Postop Eval I: Summary Notes Anesthesia Complication No 12/02/24 13:23 PORK CUTLET MAKER.GDOTT Anesthesia Complication Comment: Post-operative progress note Anesthesia: Postop Eval II Evaluation Mental status: Awake and Calm Pain Level: 2 nausea: No Vomiting: No Complications Anesthesia Complication: No
--- NOTE | 2024-12-02 15:29 | PCM.POSTANE2 ---
Anesthesia Postop Eval I Sum Postop Eval Completion status Anesthesia document: Postop Eval 1 completed: Yes Anesthesia Postop Eval I Summary Anesthesia Postop Eval I Summary: Anesthesia Postop Eval I: Assessment Summary Airway patent Yes 12/02/24 13:23 DEPARTMENT [email or web address] Spontaneous unlabored Yes 12/02/24 13:23 DEPARTMENT SUPERVISOR.[email or web address] respirations Mental status Awake,Calm 12/02/24 13:23 DEPARTMENT SUPERVISOR.[email or web address] nausea No 12/02/24 13:23 DEPARTMENT SUPERVISOR.[email or web address] Vomiting No 12/02/24 13:23 DEPARTMENT SUPERVISOR.[email or web address] Anesthesia Postop Eval I: Fluid Summary Crystalloid volume administer 800 12/02/24 13:23 DEPARTMENT SUPERVISOR.GDOTT (ml) Colloids volume administered ( ml) Blood Product volume administered (ml) Total IV fluid infused 800 12/02/24 13:23 DEPARTMENT SUPERVISOR.GDOTT Anesthesia Postop Eval I: Summary Notes Anesthesia Complication No 12/02/24 13:23 DEPARTMENT SUPERVISOR.[email or web address] Anesthesia Complication Comment: Post-operative progress note Anesthesia: Postop Eval II Evaluation Mental status: Awake and Calm Pain Level: 2 nausea: No Vomiting: No Complications Anesthesia Complication: No
== END 2024-12-02 15:02 | disposition home or self-care (01) ==
LOC: SDC 09:43 → AC 09:44
PROVIDERS: PCP Nurse Practitioner Family; Referring Provider Surgery; Visit Provider Surgery
PROC: (CPT 49505; principal; 2024-12-02 11:05)
DX: K40.90 Unilateral inguinal hernia, without obstruction or gangrene, not specified as recurrent (principal); E11.9 Type 2 diabetes mellitus without complications; K21.9 Gastro-esophageal reflux disease without esophagitis; E78.00 Pure hypercholesterolemia, unspecified; I10 Essential (primary) hypertension; Z79.01 Long term (current) use of anticoagulants; Z79.899 Other long term (current) drug therapy; Z79.84 Long term (current) use of oral hypoglycemic drugs
CPT/HCPCS: 49505; S2900; 00830; 82962; C1781; J2405